=== PATIENT | male | born 1935 | race Caucasian/White ===

== ENCOUNTER → 2021-10-01 14:45 | Outpatient (BNVA) | payer OTHER, SELFPAY | PROVIDERS: Family Provider Family Medicine; Visit Provider Nurse Practitioner Family | DX: I25.10 Atherosclerotic heart disease of native coronary artery without angina pectoris (principal); I10 Essential (primary) hypertension; Z87.891 Personal history of nicotine dependence | CPT/HCPCS: 99214 ==

== ENCOUNTER → 2022-04-03 11:37 | Outpatient (BNVA) | payer OTHER, SELFPAY | PROVIDERS: Family Provider Family Medicine; PCP Family Medicine; Visit Provider Internal Medicine | DX: I25.10 Atherosclerotic heart disease of native coronary artery without angina pectoris (principal); I10 Essential (primary) hypertension; E78.49 Other hyperlipidemia; Z87.891 Personal history of nicotine dependence; Z95.1 Presence of aortocoronary bypass graft | CPT/HCPCS: 99214 ==

== ENCOUNTER → 2023-01-01 14:13 | Outpatient (BNVA) | payer OTHER, SELFPAY | PROVIDERS: Family Provider Family Medicine; PCP Family Medicine; Visit Provider Internal Medicine | DX: I10 Essential (primary) hypertension (principal); I25.10 Atherosclerotic heart disease of native coronary artery without angina pectoris; E78.49 Other hyperlipidemia; Z87.891 Personal history of nicotine dependence | CPT/HCPCS: 36415; 80048; 83880; 99214 ==

== ENCOUNTER 2023-02-05 12:30 | Outpatient (RCR) | payer OTHER, SELFPAY | END 2023-02-24 23:59 | disposition home or self-care (01) | LOC: SPT 12:30 | PROVIDERS: PCP Family Medicine; Visit Provider Family Medicine | DX: M62.81 Muscle weakness (generalized) (principal) | CPT/HCPCS: 97110; 97161 ==

== ENCOUNTER 2023-02-25 06:00 | Outpatient (RCR) | payer OTHER, SELFPAY | END 2023-03-26 23:59 | disposition home or self-care (01) | LOC: SPT 06:00 | PROVIDERS: PCP Family Medicine; Visit Provider Family Medicine | DX: M62.81 Muscle weakness (generalized) (principal) | CPT/HCPCS: 97110 ==

== ENCOUNTER → 2023-04-02 12:41 | Outpatient (BNVA) | payer OTHER, SELFPAY | PROVIDERS: PCP Family Medicine; Visit Provider Internal Medicine | DX: I25.10 Atherosclerotic heart disease of native coronary artery without angina pectoris (principal); I10 Essential (primary) hypertension; R06.02 Shortness of breath; E78.49 Other hyperlipidemia; Z87.891 Personal history of nicotine dependence | CPT/HCPCS: 36415; 80048; 85025; 99214 ==

== ENCOUNTER 2024-11-28 13:46 | Emergency (ER) | payer OTHER, SELFPAY ==
[2024-11-28 13:50] VITALS: BP 163/71; PULSE 58; RESP 16; TEMP 36.3; O2SAT 96; BMI 28.7
--- NOTE | 2024-11-28 13:50 | XR_ITS ---
WS: [id number] XR chest 1V portable [id number] REASON FOR EXAM: sob FINDINGS: No recent examination for comparison. 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 Cardiomegaly. Moderate central venous congestion. Bilateral pleural effusions and compressive atelectasis in the lower lungs. No findings of pulmonary edema identified. XR/XR chest 1V portable [id number] IMPRESSION: Cardiomegaly and bilateral pleural effusions.
--- OUTSIDE RECORDS SUMMARY | 2024-11-28 13:54 | XMS_ITS | Encounter Summary ---
Author Organization [employer] Address 5 [facility] Attn: [place] [address] Care Team Providers Care Auto Striper Name Role Phone Mauricio Ivy MD Primary Care Provider [phone] Encounter Details Date Type Department Care Team (Late st Contact Info) Description 12/23/2001 Outpatient Historical Mauricio Ivy MD [address] [place] [address] Social History Tobacco Use Types Packs/Day Years Used Date Smoking Tobacco: Never Assessed Sex and Gender Information Value Date Recorded Sex Assigned at Not on file 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
--- OUTSIDE RECORDS SUMMARY | 2024-11-28 13:54 | XMS_ITS | Encounter Summary ---
Author Organization [employer] [facility] Address [address] [place] [address] Care Team Providers Care Refrigeration Person Name Role Phone Mauricio Ivy MD Primary Care Provider [phone] Encounter Details Date Type Department Care Team (Late st Contact Info) Description 01/15/2006 Inpatient Historical [facility] IN BED Mauricio Ivy MD [address] 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 Gender Identity Not on file Sexual Orientation Not on file documented as of this encounter Plan of Treatment Not on file documented as of this encounter Procedures Procedure Name Priority Date/Time Associated Diagnosis Comments POC ACTIVATED CLOTTING TIME Routine 01/15/2006 5:52 PM CDT POC ACTIVATED CLOTTING TIME Routine 01/15/2006 4:49 PM CDT PT AND APTT Routine 01/15/2006 9:32 AM CDT CBC WITHOUT DIFFERENTIAL Routine 01/15/2006 9:32 AM CDT BASIC METABOLIC PANEL Routine 01/15/2006 9:32 AM CDT documented in this encounter Results * (ABNORMAL) POC ACTIVATED CLOTTING TIME (01/15/2006 5:52 PM CDT) ACT POC 166(H) 79 - 149 sec INTERFACE SYSTEM 01/15/2006 5:52 PM CDT Mauricio Ivy MD POINT OF CARE TESTING Final R esult Performing Organization Address City/[facility] Co de Phone Number INTERFACE SYSTEM Refer to clinic/hospital department * (ABNORMAL) POC ACTIVATED CLOTTING TIME (01/15/2006 4:49 PM CDT) [facility] ACT POC 188(H) 79 - 149 sec INTERFACE SYSTEM 01/15/2006 4:49 PM CDT Mauricio Ivy MD POINT OF CARE TESTING Final R ult Performing Organization Address [facility] de Phone Number INTERFACE SYSTEM Refer to clinic/hospital department * (ABNORMAL) CBC WITHOUT DIFFERENTIAL (01/15/2006 9:32 AM CDT) [facility] WBC 6.1 4.8 - 10.8 K/ul INTERFACE SYSTEM RBC 5.21 4.60 - 6.20 Mil/ul INTERFACE SYSTEM HEMOGLOBIN 14.9 14.0 - 18.0 g/dL INTERFACE SYSTEM HEMATOCRIT 43.1 41.0 - 53.0 % INTERFACE SYSTEM MCV 82.7(L) 84.0 - 103.0 Fl INTERFACE SYSTEM MCH 28.6 27.0 - 34.0 pg INTERFACE SYSTEM MCHC 34.6 30.0 - 35.0 g/dL INTERFACE SYSTEM RDW 13.0 11.0 - 14.5 % INTERFACE SYSTEM PLATELETS 138(L) 140 - 440 K/ul INTERFACE SYSTEM MPV 9.7 8.9 - 12.8 Fl INTERFACE SYSTEM NEUTROPHILS 49.0 42.2 - 75.2 % INTERFACE SYSTEM LYMPHOCYTES 39.1 24.0 - 44.0 % INTERFACE SYSTEM MONOCYTES 9.9 2.0 - 10.0 % INTERFACE SYSTEM EOSINOPHILS 1.7 0.0 - 7.0 % INTERFACE SYSTEM BASOPHILS 0.3 0.0 - 1.0 % INTERFACE SYSTEM NEUTROPHIL ABSOLUTE 3.0 2.0 - 8.0 K/uL INTERFACE SYSTEM LYMPHOCYTE ABSOLUTE 2.4 1.2 - 4.0 K/ul INTERFACE SYSTEM MONOCYTE ABSOLUTE 0.6 0.1 - 0.6 K/ul INTERFACE SYSTEM EOSINOPHIL ABSOLUTE 0.1 0.0 - 0.7 K/ul INTERFACE SYSTEM BASOPHILS ABSOLUTE 0.0 0.0 - 0.2 K/ul INTERFACE SYSTEM 01/15/2006 9:32 AM CDT Mauricio Ivy MD HEMATOLOGY ORDERABLES Final R esult Performing Organization Address City/[facility] de Phone Number INTERFACE SYSTEM Refer to clinic/hospital department * PT AND APTT (01/15/2006 9:32 AM CDT) PROTIME 14.3 12.6 - 14.9 Secs INTERFACE SYSTEM Comment: As of 05 note change in normal range. INR 1.1 INTERFACE SYSTEM Comment: Expected Values for INR: DVT/PE Goal INR 2.5; range 2.0 - 3.0 Valve Replacement Tissue Goal INR 2.5; range 2.0 - 3.0 Mechanical Goal INR 3.0; range 2.5 - 3.5 POST-NE Goal INR 2.5; range 2.0 - 3.0 or Goal 3.0; range 2.5 - 3.5 Atrial Fibrillation Goal INR 2.5; range 2.0 - 3.0 Ischemic Stroke Goal INR 2.5; range 2.0 - 3.0 For additional information see Guidelines for Anticoagulation available from the pharmacy Sima Bolden D. PTT 29.4 21.5 - 34.4 Secs INTERFACE SYSTEM Comment: Therapeutic Range: Hi-level PE/DVT heparin protocol 90.1 -110 sec Lo-level PE/DVT heparin protocol 75.1 - 95 sec Cardiac Heparin Protocol 85.1 - 100 sec Neuro Heparin Protocol 70.1 - 85 sec As of 05/21/05 note change in APTT Normal Range. 01/15/2006 9:32 AM CDT Mauricio Ivy MD HEMATOLOGY ORDERABLES Final R esult Performing Organization Address City/[facility]/ZIP Co de Phone Number INTERFACE SYSTEM Refer to clinic/hospital department * BASIC METABOLIC PANEL (01/15/2006 9:32 AM CDT) GLUCOSE 102 70 - 110 mg/dL INTERFACE SYSTEM BUN 17 9 - 20 mg/dL INTERFACE SYSTEM CREATININE 1.3 0.7 - 1.5 mg/dL INTERFACE SYSTEM SODIUM 139 136 - 145 mEq/L INTERFACE SYSTEM POTASSIUM 4.2 3.5 - 5.0 mEq/L INTERFACE SYSTEM CHLORIDE 106 95 - 110 mEq/L INTERFACE SYSTEM CO2 27 22 - 32 mmol/l INTERFACE SYSTEM ANION GAP 10 9 - 20 mEq/L INTERFACE SYSTEM OSMOLALITY, CALCULATED 288 275 - 295 mOsm/Kg INTERFACE SYSTEM CALCIUM 9.9 8.4 - 10.5 mg/dL INTERFACE SYSTEM 01/15/2006 9:32 AM CDT us Mauricio Ivy MD CHEMISTRY ORDERABLES Final Re sult INTERFACE SYSTEM Refer to clinic/hospital department documented in this encounter Visit Diagnoses Diagnosis Coronary atherosclerosis of [place] coronary artery- Primary documented in this encounter Care Teams Refrigeration Person Relationship Specialty Start Date End Date Mauricio Ivy MD [address] [facility] [address] [place] [phone] PCP - General 01/15/06 documented as of this encounter
--- OUTSIDE RECORDS SUMMARY | 2024-11-28 13:54 | XMS_ITS | Encounter Summary ---
Author Organization [facility] Address [address] [place] [address] Care Team Providers Care Shipping Assistant Name Role Phone Mauricio Ivy MD Primary Care Provider [phone] Encounter Details Date Type Department Care Team (Latest Contact Info) Description 01/28/2007 Outpatient Historical [facility] Cardiology Ancillary Services[facility] [address] [place] [address] Eduar Santoro MD [address] [place] [address] Coronary Atherosclerosis of [place] Coronary Artery (Primary Dx); Unspecified Chest Pain Social History Tobacco Use Types Packs/Day Years Used Date Smoking Tobacco: Never Assessed Sex and Gender Information Value Date Recorded Sex Assigned at Not on file 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
--- OUTSIDE RECORDS SUMMARY | 2024-11-28 13:54 | XMS_ITS | Encounter Summary ---
Author Organization [facility] Address [address] [place] [address] Care Team Providers Care Diagnostic Tech Name Role Phone Mauricio Ivy MD Primary Care Provider [phone] Encounter Details Date Type Department Care Team (Latest Contact Info) Description 02/16/2006 Outpatient Historical [facility] Cardiology- [place] [address] [place] [address] Vane Sun, FINANCIAL ADMINISTRATION OFFICER [address] [place] [address] Coronary Atherosclerosis of [place] Coronary Artery (Primary Dx); Unspecified Essential Hypertension; Other and Unspecified Hyperlipidemia Social History Tobacco Use Types Packs/Day Years Used Date Smoking Tobacco: Never Assessed Sex and Gender Information Value Date Recorded Sex Assigned at Not on file 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
--- OUTSIDE RECORDS SUMMARY | 2024-11-28 13:54 | XMS_ITS | Encounter Summary ---
Author Organization [facility] Address [address] [place] [address] Care Team Providers Care Repairer Shoe Sticks Name Role Phone Mauricio Ivy MD Primary Care Provider [phone] Encounter Details Date Type Department Care Team (Latest Contact Info) Description 01/15/2000 Outpatient Historical [facility] Cardiology- [place] [address] [place] [address] Mauricio Ivy MD [address] [place] [address] Other and unspecified angina pectoris (Primary Dx); Coronary atherosclerosis of [place] coronary artery Social History Tobacco Use Types Packs/Day Years Used Date Smoking Tobacco: Never Assessed Sex and Gender Information Value Date Recorded Sex Assigned at Not on file 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
--- OUTSIDE RECORDS SUMMARY | 2024-11-28 13:54 | XMS_ITS | Encounter Summary ---
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
--- OUTSIDE RECORDS SUMMARY | 2024-11-28 13:54 | XMS_ITS | Encounter Summary ---
Author Organization [facility] Address [address] [place] [address] Care Team Providers Care Finisher Accordion Name Role Phone Mauricio Ivy MD Primary Care Provider [phone] Encounter Details Date Type Department Care Team (Latest Contact Info) Description 02/16/2006 Outpatient Historical [facility] Cardiology Ancillary Services-[place] [address] [place] [address] Deep Nye MD NO ADDRESS ON FILE Coronary Atherosclerosis of [place] Coronary Artery (Primary Dx); Unspecified Chest Pain Social History Tobacco Use Types Packs/Day Years Used Date Smoking Tobacco: Never Assessed Sex and Gender Information Value Date Recorded Sex Assigned at Not on file 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
--- OUTSIDE RECORDS SUMMARY | 2024-11-28 13:54 | XMS_ITS | Clinical Summary ---
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
--- OUTSIDE RECORDS SUMMARY | 2024-11-28 13:54 | XMS_ITS | Encounter Summary ---
Author Organization [facility] Address [address] [place] [address] Care Team Providers Care Medical Transcription Radiology Name Role Phone Mauricio Ivy MD Primary Care Provider [phone] Encounter Details Date Type Department Care Team (Latest Contact Info) Description 12/07/2006 Outpatient Historical [facility] Cardiology- [place] [address] [place] [address] Vane Sun, MANAGER PATHOLOGY [address] [place] [address] Coronary Atherosclerosis of [place] Coronary Artery (Primary Dx); Unspecified Essential Hypertension; Unspecified Chest Pain; Other and Unspecified Hyperlipidemia Social History Tobacco Use Types Packs/Day Years Used Date Smoking Tobacco: Never Assessed Sex and Gender Information Value Date Recorded Sex Assigned at Not on file 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
--- NOTE | 2024-11-28 13:57 | ECG_ITS ---
[facility] 2024-[facility]28 Pat Name: Nate Riddle Department: Room: Gender: Male [employer] System Admin: : 1935 Requested By: Derrell Rios Order Number: [id number] Reading MD: MALENA DEUTSCH Measurements Intervals [place] Rate: 57 P: 0 MA: 0 QRS: 250 QRSD: 156 T: 68 QT: 461 QTc: 452 Interpretive Statements ATRIAL FIBRILLATION RIGHT AXIS DEVIATION [QRS AXIS > 100] RIGHT BUNDLE BRANCH BLOCK [120+ ms QRS DURATION, UPRIGHT V1, 40+ ms S IN I/aVL/V4/V5/V6] POSSIBLE ANTERIOR MYOCARDIAL INFARCTION , PROBABLY OLD [30 ms Q WAVE IN V3/V4, OR R < 0.2 mV IN V4] No previous ECG available for comparison Electronically Signed On 11-28-2024 14:02:00 CDT by MALENA DEUTSCH [email or web address]
[2024-11-28 14:22] LABS: Hematocrit 38.3 % (37-53); Hemoglobin 12.50 g/dL (11.27-16.99); Mean Corpuscular HGB Conc 32.6 g/dL (30-55); Mean Corpuscular Hemoglobin 27.8 pg (27-33); Mean Corpuscular Volume 85.3 fl (82-101); Nucleated Red Blood Cells % 0 %; Platelet Count 144 10^3/cmm (157-399); Red Blood Count 4.49 10^6/uL (3.85-5.65); White Blood Count 5.80 10^3/uL (3.29-11.43)
[2024-11-28 14:23] VITALS: BP 153/71; PULSE 58; RESP 16; O2SAT 94
[2024-11-28 14:36] VITALS: PULSE 57; RESP 16; O2SAT 93
--- NOTE | 2024-11-28 14:40 | W.ED.EXTPRO ---
HPI - Extremity Problem General: Chief complaint: Extremity Problem,Nontraumatic Stated complaint: sob,fluid build up sent from [place] Time Seen by Provider: 11/28/24 14:07 History of Present Illness: 89-year-old male presents emergency room complaining of increasing shortness of breath swelling in his legs. He recently had his Lasix increased from 20 mg daily to 40 mg daily despite this is not noticed any increased urine output or decrease in the swelling in his legs. He denies any fever sweats or chills. No dysuria urgency or frequency no vomiting or diarrhea Associated symptoms: Deny chest pain, fever(s) or rash Related Data Home Medications ?Medication ?Instructions ?Recorded ?Confirmed isosorbide dinitrate 20 mg tablet 20 mg PO BID 06/23/19 11/28/24 cholecalciferol (vitamin D3) 25 5,000 unit PO DAILY 03/20/20 11/28/24 mcg (1,000 unit) capsule amlodipine 5 mg tablet 5 mg PO DAILY 04/02/23 11/28/24 furosemide 40 mg tablet (Lasix) 40 mg PO QAM 11/28/24 11/28/24 levothyroxine 75 mcg tablet 75 mcg PO DAILY 11/28/24 11/28/24 rosuvastatin 40 mg tablet 20 mg PO DAILY 11/28/24 11/28/24 Previous Rx's ?Medication ?Instructions ?Recorded atenolol 100 mg tablet 100 mg PO DAILY #90 tabs 01/25/21 potassium chloride 20 mEq 20 meq PO BID #60 tabs 01/02/23 tablet,extended release Allergies Allergy/AdvReac Type Severity Reaction Status Date / Time No Known Allergies Allergy Verified 11/28/24 13:58 Review of Systems Const: Denies: fever(s) or chills Card: Reports: edema, swelling of feet/ankles, dyspnea on exertion and orthopnea; Denies: chest pain Resp: Denies: dyspnea GI: Denies: abdominal pain : Denies: dysuria, urinary frequency or urinary urgency Musc: Denies: neck pain or back pain Skin/Breast: Denies: rash PFSH ED PFSH: Medical History Balance disorder Hyperlipidemia HTN (hypertension) ASHD (arteriosclerotic heart disease) Surgical History 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 Family History Father Congestive heart failure (CHF) Hypertension Mother CAD (coronary artery disease) Hypertension Social History Smoking and tobacco/nicotine status: former use of tobacco/nicotine Physical Exam Const: GENERAL APPEARANCE: cooperative ORIENTATION/CONSCIOUSNESS: Yes awake, Yes oriented to person, Yes oriented to place and Yes oriented to time HENMT: COMMON NORMALS: normocephalic, atraumatic and hearing grossly normal bilaterally HEAD & SCALP: normocephalic and atraumatic Resp: COMMON NORMALS: normal respiratory effort, No retractions, No use of accessory muscles and clear to auscultation bilaterally AUSCULTATION: clear to auscultation bilaterally Cardio: COMMON NORMALS: regular rate, regular rhythm and No murmurs present (Cardio) RATE: regular rate RHYTHM: regular rhythm GI: COMMON NORMALS: Soft to palpation and No hepatosplenomegaly present AUSCULTATION: Yes normoactive bowel sounds PALPATION: Yes Soft to palpation, No Tenderness to palpation present (GI), No Guarding due to palpation present (GI) and Yes No hepatosplenomegaly present Extremity: COMMON NORMALS: normal to inspection, capillary refill normal and no calf tenderness GENERAL: Yes edema Neuro: SENSORIUM/ORIENTATION: Yes oriented to person, Yes oriented to place and Yes oriented to time Skin: COMMON NORMALS: no rashes or lesions noted GENERAL SKIN EXAM: no rashes or lesions noted Course Vital Signs: Vital signs: Vital Signs Temperature 97.4 F L 11/28/24 13:50 Pulse Rate 59 L 11/28/24 16:54 Respiratory Rate 14 11/28/24 16:33 Blood Pressure 149/56 11/28/24 16:54 Pulse Oximetry 94 11/28/24 16:54 Oxygen Delivery Me thod Room Air 11/28/24 16:33 MDM - Extremity (Nontraumatic) Medical Decision Making Patient has a fairly good sized right pleural effusion ultrasound discussed with radiology they were able to get a liter off of my submitted for pathology. Patient is adamant about going home in fact it took a little convincing even get him to stay and undergo the thoracentesis. Will set him up for follow-up with pulmonology clinic pleural fluid submitted for analysis continue his current dose of Lasix Medical Records I reviewed the patient's medical records. Lab Data I reviewed the patient's lab results. 11/28/24 14:18 11/28/24 14:18 Radiology Impressions Thoracentesis Ultrasound 11/28/24 15:47 IMPRESSION: Uncomplicated ultrasound-guided RIGHT thoracentesis with removal of 1000 cc clear yellow pleural fluid. Chest X-Ray 11/28/24 16:34 IMPRESSION: 1. Improved RIGHT pleural effusion postthoracentesis. 2. No pneumothorax. Laboratory Results WBC 5.80 10^3/uL (3.29-11.43) 11/28/24 14:18 RBC 4.49 10^6/uL (3.85-5.65) 11/28/24 14:18 Hgb 12.50 g/dL (11.27-16.99) 11/28/24 14:18 Hct 38.3 % (37-53) 11/28/24 14:18 MCV 85.3 fl (82-101) 11/28/24 14:18 MCH 27.8 pg (27-33) 11/28/24 14:18 MCHC 32.6 g/dL (30-55) 11/28/24 14:18 RDW 15.1 % (12.1-15.1) 11/28/24 14:18 Plt Count 144 10^3/cmm (157-399) L 11/28/24 14:18 MPV 9.6 fL (7.4-10.4) 11/28/24 14:18 Neut % (Auto) 66.4 % 11/28/24 14:18 Lymph % (Auto) 21.6 % 11/28/24 14:18 [place] % (Auto) 10.3 % 11/28/24 14:18 Eos % (Auto) 1.2 % 11/28/24 14:18 Baso % (Auto) 0.3 % 11/28/24 14:18 Neut # (Auto) 3.85 10^3/uL (1.8-7.7) 11/28/24 14:18 Lymph # (Auto) 1.3 10^3/uL (0.8-4.8) 11/28/24 14:18 [place] # (Auto) 0.6 10^3/uL (0.2-0.9) 11/28/24 14:18 Eos # (Auto) 0.1 10^3/uL (0.0-0.8) 11/28/24 14:18 Baso # (Auto) 0.0 10^3/uL (0.0-0.1) 11/28/24 14:18 Nucleated RBC % (auto) 0 % 11/28/24 14:18 Nucleated RBCs # 0.0 /100WBC 11/28/24 14:18 Sodium 134 mmol/L (136-145) L 11/28/24 14:18 Potassium 3.9 mmol/L (3.5-5.1) 11/28/24 14:18 Chloride 94 mmol/L (98-107) L 11/28/24 14:18 Carbon Dioxide 26 mmol/L (22-29) 11/28/24 14:18 Anion Gap 17.9 (5-19) 11/28/24 14:18 BUN 15 mg/dL (8-23) 11/28/24 14:18 Creatinine 1.1 mg/dL (0.7-1.2) 11/28/24 14:18 GFR Calculation Not Reportable 11/28/24 14:18 Glucose 103 mg/dL (65-115) 11/28/24 14:18 Calculated Osmolality 279 mOsm/kg (285-295) L 11/28/24 14:18 Calcium 9.4 mg/dL (8.5-10.5) 11/28/24 14:18 Total Bilirubin 1.2 mg/dL (0.15-1.2) 11/28/24 14:18 AST 26 U/L (0-40) 11/28/24 14:18 ALT 16 U/L (0-41) 11/28/24 14:18 Alkaline Phosphatase 87 U/L (40-130) 11/28/24 14:18 NT-Pro-B Natriuret Pep 8631 pg/mL (0-450) H 11/28/24 14:18 Total Protein 7.4 g/dL (6.6-8.7) 11/28/24 14:18 Albumin 4.5 g/dL (3.5-5.2) 11/28/24 14:18 Globulin 2.9 g/dL (1.3-4.6) 11/28/24 14:18 Fld Crystal Laterality Not Reportable 11/28/24 16:36 Pleural Color Pale yellow (Pale Yellow) 11/28/24 16:36 Pleural Appearance Clear (CLEAR) 11/28/24 16:36 Pleural WBC 144.000 /uL (0-1000) 11/28/24 16:36 Pleural RBC 1.000 10^3/uL 11/28/24 16:36 Pleural Mononuc # Auto 0.129 10^3/uL 11/28/24 16:36 Pleural Polynuclear % 10 % 11/28/24 16:36 Pleural Polynuclear # 0.015 10^3/uL 11/28/24 16:36 Pleural Mononuclear % 90 % 11/28/24 16:36 Pleural Other Cells Rt Right lower 11/28/24 16:36 All radiology interpretation(s) finalized by discharge Discharge Plan Discharge Patient Disposition: Home Clinical Impression: Pleural effusion, CHF (congestive heart failure) Condition: Stable Prescriptions: No Action isosorbide dinitrate 20 mg tablet 20 mg PO BID cholecalciferol (vitamin D3) 25 mcg (1,000 unit) capsule 5,000 unit PO DAILY amlodipine 5 mg tablet 5 mg PO DAILY atenolol 100 mg tablet 100 mg PO DAILY Qty: 90 0RF potassium chloride 20 mEq tablet extended release 20 meq PO BID Qty: 60 0RF furosemide [Lasix] 40 mg Tablet 40 mg PO QAM levothyroxine 75 mcg Tablet 75 mcg PO DAILY rosuvastatin 40 mg tablet 20 mg PO DAILY Discharge Orders: Discharge ED (Routine); Ordered 11/28/24 Ordered By: Amaury Hill Referrals: Serenity Gamez MD [Primary Care Provider, Family Practice] Discharge Diet: Usual diet Discharge Activity: Resume usual activity Patient Instructions: Opioid Safety, Pain Management, Patient Portal & Irma Instructions Activity Restrictions/Additional Instructions: [facility]. It is very important that you follow up as instructed or that you return to the Emergency Department should you have concerns or if your condition changes or worsens in any way. You are seen in the emergency room with complaint of increasing swelling. Your chest x-ray showed a fluid collection this was drained in the emergency room and submitted for pathology. At your request we are discharging you home and will set you up for follow-up with the registered travel nurse. Continue to take the Lasix 40 mg daily Print Language: Vietnamese Coding Level of Care Code ED User Interface Artist for Burt Amezquita
[2024-11-28 14:49] LABS: Alanine Aminotransferase 16 U/L (0-41); Albumin Level 4.5 g/dL (3.5-5.2); Alkaline Phosphatase 87 U/L (40-130); Anion Gap 17.9 (5-19); Aspartate Amino Transferase 26 U/L (0-40); Blood Urea Nitrogen 15 mg/dL (8-23); Calcium 9.4 mg/dL (8.5-10.5); Carbon Dioxide 26 mmol/L (22-29); Chloride 94 mmol/L (98-107); Creatinine Clr Calc Pharmacy 55.2458; Globulin 2.9 g/dL (1.3-4.6); Glucose 103 mg/dL (65-115); NT Pro B Type Natriuretic Pept 8631 pg/mL (0-450); Osmolality Calculated 279 mOsm/kg (285-295); Potassium 3.9 mmol/L (3.5-5.1); Sodium 134 mmol/L (136-145); Total Protein 7.4 g/dL (6.6-8.7)
--- NOTE | 2024-11-28 15:47 | US_ITS ---
WS: [id number] ULTRASOUND-GUIDED THORACENTESIS CLINICAL INFORMATION: pleural effusion PROCEDURE: Informed consent: The risks, benefits, and alternatives of the procedure were discussed with the patient. Verbal and written consent was obtained. Timeout: A timeout was performed to confirm the correct patient, procedure, and site. Site: RIGHT chest Preparation: A suitable skin site was identified. The patient was prepped and draped in usual sterile fashion. Lidocaine 1% was used for local anesthesia. Catheter: 4 [place] One-Step catheter. Fluid Volume: 1000 ml Color: Clear yellow Complications: None. / thoracentesis [id number] IMPRESSION: Uncomplicated ultrasound-guided RIGHT thoracentesis with removal of 1000 cc ana ar yellow pleural fluid.
--- NOTE | 2024-11-28 15:55 | PC.PHAR ---
Addendum entered by Janki Rios 11/28/24 16:04: Verified all current medications with Sherrell Deluca. Original Note: [facility] is [facility] pharmacy for current med list.
[2024-11-28 16:33] VITALS: BP 149/56; PULSE 61; RESP 14; O2SAT 97
--- NOTE | 2024-11-28 16:34 | XR_ITS ---
WS: [id number] CHEST XRAY TECHNIQUE: Portable chest. CLINICAL INFORMATION: POST THORACENTESIS COMPARISON: 11/28/2024 2:34 p.m. FINDINGS: Heart: Cardiomegaly. Sternotomy. CABG. Lungs: Post RIGHT thoracentesis. No pneumothorax. Significant improvement in the RIGHT pleural effusion with a small amount of residual pleural fluid or thickening. Small LEFT pleural effusion. Bones: Osteopenia. XR/XR chest 1V portable [id number] IMPRESSION: 1. Improved RIGHT pleural effusion postthoracentesis. 2. No pneumothorax.
--- NOTE | 2024-11-28 16:34 | PC.NURSE ---
1 L PULLED DURING THORACENTESIS.
[2024-11-28 16:54] VITALS: BP 149/56; PULSE 59; O2SAT 94
--- NOTE | 2024-11-28 17:03 | DCPLANNER ---
messaged pulmonology for er f/u
[2024-11-28 17:11] LABS: Cyto Order Verification No Order
[2024-11-28 17:19] LABS: Mononuclear %, Pleural Fluid 90 %; Mononuclear, Pleural Fluid # 0.129 10^3/uL; Polynuclear Cells, Pleural # 0.015 10^3/uL; Polynuclear Cells, Pleural % 10 %; WBC Pleural Fluid 144.000 /uL (0-1000)
[2024-11-28 17:20] LABS: Appearance, Pleural Fluid CLEAR (CLEAR); Color, Pleural Fluid Pale Yellow (Pale Yellow); Right Pleural Fluid RIGHT LOWER
--- NOTE | 2024-11-29 08:43 | PC.SOCIAL ---
[facility] Pulmonology Records sent [place] for authorization for pulmonology appt.
== END 2024-11-28 16:55 | disposition home or self-care (01) ==
PROVIDERS: Emergency Medicine; Emergency Provider Family Medicine; PCP Family Medicine
DX: J90 Pleural effusion, not elsewhere classified (principal); I11.0 Hypertensive heart disease with heart failure; I50.9 Heart failure, unspecified; E78.5 Hyperlipidemia, unspecified; Z87.891 Personal history of nicotine dependence
CPT/HCPCS: 32555; 36415; 71045; 80053; 80503; 83880; 85025; 89050; 93005; 99285

== ENCOUNTER → 2024-12-07 09:21 | Outpatient (BNVA) | payer OTHER, SELFPAY | PROVIDERS: PCP Family Medicine; Visit Provider Internal Medicine | DX: R60.0 Localized edema (principal); J90 Pleural effusion, not elsewhere classified; E87.1 Hypo-osmolality and hyponatremia; E87.70 Fluid overload, unspecified; Z87.891 Personal history of nicotine dependence | CPT/HCPCS: 99205 ==

== ENCOUNTER 2024-12-07 10:19 | Inpatient (IN) | payer OTHER, MEDICARE, SELFPAY ==
[2024-12-07] VITALS (21 sets, daily range): BP systolic 113–161; BP diastolic 58–80; PULSE 53–82; RESP 15–30; TEMP 36.1–36.6; O2SAT 88–98; BMI 28.8
--- NOTE | 2024-12-07 10:20 | XR_ITS ---
WS: [id number] Portable AP upright chest, 12/07/2024 Clinical Data: sob Comparison: Portable chest, 11/28/2024 Findings: There are small bilateral pleural effusions unchanged. The heart is enlarged. No nodules or masses are seen. There is no pneumothorax. The aortic arch shows calcification. There are mediastinal clips and midline sternotomy sutures. There is an anterior cervical disc fusion. XR/XR chest 1V portable [id number] Impression: 1. Small bilateral pleural effusions unchanged. 2. Atherosclerosis and cardiomegaly.
[2024-12-07 10:44] LABS: Hematocrit 37.9 % (37-53); Hemoglobin 12.10 g/dL (11.27-16.99); Mean Corpuscular HGB Conc 31.9 g/dL (30-55); Mean Corpuscular Hemoglobin 27.4 pg (27-33); Mean Corpuscular Volume 85.9 fl (82-101); Nucleated Red Blood Cells % 0 %; Platelet Count 154 10^3/cmm (157-399); Red Blood Count 4.41 10^6/uL (3.85-5.65); White Blood Count 5.96 10^3/uL (3.29-11.43)
--- NOTE | 2024-12-07 10:50 | ECG_ITS ---
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 Measurements Intervals [place] Rate: 53 P: 0 [place]: 0 QRS: 266 QRSD: 153 T: 61 QT: 485 QTc: 458 Interpretive Statements ATRIAL FIBRILLATION WITH SLOW VENTRICULAR RESPONSE RIGHT AXIS DEVIATION [QRS AXIS > 100] RIGHT BUNDLE BRANCH BLOCK [120+ ms QRS DURATION, UPRIGHT V1, 40+ ms S IN I/aVL/V4/V5/V6] ANTERIOR MYOCARDIAL INFARCTION , OF INDETERMINATE AGE [40+ ms Q WAVE AND/OR ST/T ABNORMALITY IN V3/V4] Compared to ECG 11/28/2024 13:57:09 No significant changes Electronically Signed On 12-17-2024 09:36:33 CDT by Jose Sharpe M.D. [email or web address]
[2024-12-07 11:08] LABS: Troponin(5th) Baseline 120 ng/L (0-15)
[2024-12-07 11:20] LABS: Alanine Aminotransferase 13 U/L (0-41); Albumin Level 4.3 g/dL (3.5-5.2); Alkaline Phosphatase 80 U/L (40-130); Aspartate Amino Transferase 25 U/L (0-40); Blood Urea Nitrogen 18 mg/dL (8-23); Calcium 9.2 mg/dL (8.5-10.5); Carbon Dioxide 24 mmol/L (22-29); Chloride 96 mmol/L (98-107); Creatinine Clr Calc Pharmacy 51.1985; Globulin 2.4 g/dL (1.3-4.6); Glucose 93 mg/dL (65-115); NT Pro B Type Natriuretic Pept 10007 pg/mL (0-450); Osmolality Calculated 280 mOsm/kg (285-295); Sodium 134 mmol/L (136-145); Total Protein 6.7 g/dL (6.6-8.7)
[2024-12-07 11:24] LABS: Anion Gap 17.8 (5-19); Potassium 3.8 mmol/L (3.5-5.1)
--- NOTE | 2024-12-07 11:57 | W.ED.SOB ---
HPI - SOB/Dyspnea General: Chief Complaint: Shortness of Breath/Dyspnea Stated Complaint: dr keron, fluid on lungs Time Seen by Provider: 12/07/24 11:21 History of Present Illness: HPI Narrative: Chief complaint shortness of breath. The patient states that when he lays down he cannot breathe. He has had swelling in his legs and he states now is extending up into his scrotum and perineum and lower abdomen. No chest pain Related Data Home Medications ?Medication ?Instructions ?Recorded ?Confirmed isosorbide dinitrate 20 mg tablet 20 mg PO BID 06/23/19 12/07/24 amlodipine 5 mg tablet 5 mg PO DAILY 04/02/23 12/07/24 furosemide 40 mg tablet (Lasix) 40 mg PO QAM 11/28/24 12/07/24 levothyroxine 75 mcg tablet 75 mcg PO DAILY 11/28/24 12/07/24 rosuvastatin 40 mg tablet 20 mg PO DAILY 11/28/24 12/07/24 Previous Rx's ?Medication ?Instructions ?Recorded atenolol 100 mg tablet 100 mg PO DAILY #90 tabs 01/25/21 potassium chloride 20 mEq 20 meq PO BID #60 tabs 01/02/23 tablet,extended release Allergies Allergy/AdvReac Type Severity Reaction Status Date / Time No Known Allergies Allergy Verified 12/07/24 10:55 [facility] ED PFSH: Medical History (Updated 12/07/24 @ 11:57 by Vicente Hernandez MD) Balance disorder Hyperlipidemia HTN (hypertension) ASHD (arteriosclerotic heart disease) Surgical History 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 Quit in 1989) Physical Exam Narrative: EXAM NARRATIVE: Patient is alert and oriented. He becomes tachypneic with just mild activity of unbuckling his pants or any movement in the bed. He has diminished breath sounds bilaterally with crackles in the bases. He has significant pitting edema over his legs that is 4+ extending up into the scrotum and penis and perineal area. No abdominal tenderness guarding or rebound. Heart has a murmur and is irregularly irregular. Neck is supple. He has moist mucous membranes. No drift in his arms. He moves his arms and legs freely. He sits up and moves his back freely. No tenderness over his back. Neck is supple. No rash in exposed areas on the skin which is warm. Speech is clear. He shows ability to reason. Course Vital Signs: Vital signs: Vital Signs Temperature 97.5 F L 12/07/24 10:45 Pulse Rate 58 L 12/07/24 11:45 Respiratory Rate 15 12/07/24 11:45 Blood Pressure 140/74 12/07/24 10:45 Pulse Oximetry 93 12/07/24 11:45 Oxygen Delivery Me thod Room Air 12/07/24 10:45 MDM - SOB/Dyspnea Medical Decision Making Patient presents with complaint of shortness of breath and leg edema. Patient saw his safety scientist today and was told to come to emergency room for admission. Patient denies history of PE or DVT. He states he is not on a blood thinner that he is aware of. He states he takes 40 mg water pill twice a day and has not missed any doses. Denies any fever. No new cough. No leg pain but he states both of legs have been swollen for several months but has been getting worse. Patient states they took some fluid off his heart 4 days ago which sounds like a thoracentesis and he states his breathing has been better since then but he still cannot lay down without getting out of breath and he cannot sleep because of trouble breathing if he tries to lay down. No chest pain or chest discomfort or upper back or arm or jaw discomfort. No black or bloody stools. No fever. No headache. No abdominal pain. No vomiting or diarrhea. Patient EKG shows to my interpretation atrial fibrillation with right bundle branch block and nonspecific ST segment changes. On comparison patient did have a single prior EKG in the system which was interpreted as A-fib at that time. I do not see record of A-fib otherwise and patient denies being anticoagulated. Patient denies chest pain however troponin is elevated. CBC, CMP, troponin, proBNP, EKG and chest x-ray were ordered. Chest x-ray shows pleural effusions. White count is normal. Creatinine is 1.2. proBNP is elevated. I ordered aspirin for the patient 324 mg p.o. and 40 mg of Lasix IV. I have paged hospitalist to consult for admission for further diuresis and further evaluation. I consulted with Dr. Wakefield who recommends heparin with his history of coronary artery disease and elevated troponin and A-fib and will admit and continue patient care. Lab Data 12/07/24 10:34 12/07/24 10:34 Labs/Radiology: Radiology Impressions Chest X-Ray 12/07/24 10:20 Impression: 1. Small bilateral pleural effusions unchanged. 2. Atherosclerosis and cardiomegaly. Laboratory Results WBC 5.96 10^3/uL (3.29-11.43) 12/07/24 10:34 RBC 4.41 10^6/uL (3.85-5.65) 12/07/24 10:34 Hgb 12.10 g/dL (11.27-16.99) 12/07/24 10:34 Hct 37.9 % (37-53) 12/07/24 10:34 MCV 85.9 fl (82-101) 12/07/24 10:34 MCH 27.4 pg (27-33) 12/07/24 10:34 MCHC 31.9 g/dL (30-55) 12/07/24 10:34 RDW 15.5 % (12.1-15.1) H 12/07/24 10:34 Plt Count 154 10^3/cmm (157-399) L 12/07/24 10:34 MPV 9.7 fL (7.4-10.4) 12/07/24 10:34 Neut % (Auto) 67.0 % 12/07/24 10:34 Lymph % (Auto) 20.3 % 12/07/24 10:34 [place] % (Auto) 9.9 % 12/07/24 10:34 Eos % (Auto) 1.8 % 12/07/24 10:34 Baso % (Auto) 0.5 % 12/07/24 10:34 Neut # (Auto) 3.99 10^3/uL (1.8-7.7) 12/07/24 10:34 Lymph # (Auto) 1.2 10^3/uL (0.8-4.8) 12/07/24 10:34 [place] # (Auto) 0.6 10^3/uL (0.2-0.9) 12/07/24 10:34 Eos # (Auto) 0.1 10^3/uL (0.0-0.8) 12/07/24 10:34 Baso # (Auto) 0.0 10^3/uL (0.0-0.1) 12/07/24 10:34 Nucleated RBC % (auto) 0 % 12/07/24 10:34 Nucleated RBCs # 0.0 /100WBC 12/07/24 10:34 Sodium 134 mmol/L (136-145) L 12/07/24 10:34 Potassium 3.8 mmol/L (3.5-5.1) 12/07/24 10:34 Chloride 96 mmol/L (98-107) L 12/07/24 10:34 Carbon Dioxide 24 mmol/L (22-29) 12/07/24 10:34 Anion Gap 17.8 (5-19) 12/07/24 10:34 BUN 18 mg/dL (8-23) 12/07/24 10:34 Creatinine 1.2 mg/dL (0.7-1.2) 12/07/24 10:34 GFR Calculation Not Reportable 12/07/24 10:34 Glucose 93 mg/dL (65-115) 12/07/24 10:34 Calculated Osmolality 280 mOsm/kg (285-295) L 12/07/24 10:34 Calcium 9.2 mg/dL (8.5-10.5) 12/07/24 10:34 Total Bilirubin 1.5 mg/dL (0.15-1.2) H 12/07/24 10:34 AST 25 U/L (0-40) 12/07/24 10:34 ALT 13 U/L (0-41) 12/07/24 10:34 Alkaline Phosphatase 80 U/L (40-130) 12/07/24 10:34 Troponin T Baseline 120 ng/L (0-15) H* 12/07/24 10:34 NT-Pro-B Natriuret Pep 03139 pg/mL (0-450) H 12/07/24 10:34 Total Protein 6.7 g/dL (6.6-8.7) 12/07/24 10:34 Albumin 4.3 g/dL (3.5-5.2) 12/07/24 10:34 Globulin 2.4 g/dL (1.3-4.6) 12/07/24 10:34 All radiology interpretation(s) finalized by discharge Discharge Plan Discharge Patient Disposition: Admitted As Inpatient Clinical Impression: Atrial fibrillation, Acute exacerbation of CHF (congestive heart failure), Pleural effusion, Elevated troponin Condition: Stable Coding Level of Care Code ED Roller Setter for Burt Amezquita
--- NOTE | 2024-12-07 12:20 | ECG_ITS ---
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 Measurements Intervals [place] Rate: 59 P: 0 [place]: 0 QRS: 258 QRSD: 162 T: 63 QT: 498 QTc: 496 Interpretive Statements UNCERTAIN REGULAR RHYTHM RIGHT AXIS DEVIATION [QRS AXIS > 100] RIGHT BUNDLE BRANCH BLOCK [120+ ms QRS DURATION, UPRIGHT V1, 40+ ms S IN I/aVL/V4/V5/V6] POSSIBLE ANTERIOR MYOCARDIAL INFARCTION , OF INDETERMINATE AGE [30 ms Q WAVE IN V3/V4, OR R < 0.2 mV IN V4] Compared to ECG 12/07/2024 10:50:24 Atrial fibrillation no longer present Myocardial infarct finding still present Electronically Signed On 12-17-2024 13:10:21 CDT by Ronald Pedroza M.D. [email or web address]
[2024-12-07] MEDS: FUROsemide 10 mg/mL SDV 4mL 40 MG IVP ×2 (12:37→16:39)
--- NOTE | 2024-12-07 12:38 | USCV_ITS ---
Nate Riddle Age: 89 Gender: M : 1935 Exam Date: 12/07/2024 13:30 Ordering Phys: Juan Bo MD Technologist: Exam Location: [facility] [place] Indication: cp sob murmur BP: 110 / 60 HR: 58 Rhythm: Sinus Technical Quality: Adequate MEASUREMENTS (Male / Female) Normal Values 2D ECHO LV Diastolic Diameter PLAX 4.5 cm 4.2 - 5.9 / 3.9 - 5.3 cm IVS Diastolic Thickness 1.7 cm 0.6 - 1.0 / 0.6 - 0.9 cm IVS Systolic Thickness 2.2 cm LVPW Diastolic Thickness 1.6 cm 0.6 - 1.0 / 0.6 - 0.9 cm LVPW Systolic Thickness 1.8 cm LVOT Diameter 2.1 cm LV Ejection Fraction 2D Teich 43.4 % LV Ejection Fraction MOD 4C 46.7 % LV Ejection Fraction MOD 2C 31.8 % LV Ejection Fraction 2C AL 29.3 % LA Diameter 4.2 cm RA Systolic Volume 4C AL 50.8 ml RA Systolic Volume 4C MOD 49.3 ml Aorta at Sinotubular Diameter 3.1 cm IVC Diameter 2.3 cm M-MODE LA Ao Ratio MM 1.1 AV Cusp Separation MM 1.5 cm DOPPLER AV Peak Velocity 161.0 cm/s LVOT Peak Velocity 64.0 cm/s AV Area Cont Eq vti 1.6 cm squared AV Area Cont Eq pk 1.3 cm squared MV Peak Velocity 172.7 cm/s MV Area PHT 4.5 cm squared Mitral E to A Ratio 2.0 TV Peak Velocity 194.0 cm/s TR Peak Velocity 216.0 cm/s TR Peak Gradient 18.7 mmHg TV Peak E Velocity 82.0 cm/s PV Peak Velocity 95.0 cm/s FINDINGS Left Ventricle Left ventricle is normal in size. LV systolic function is mildly reduced with EF of 45-50%. Mild global hypokinesis. Moderate left ventricular hypertrophy. Right Ventricle Not well visualized Right Atrium Normal in size Left Atrium Dilated Mitral Valve Moderate mitral annular calcification. Mild mitral regurgitation. Aortic Valve Aortic valve is thickened. No significant stenosis or regurgitation. Tricuspid Valve Insufficient TR jet to evaluate RVSP. Pulmonic Valve Mild pulmonic regurgitation. Pericardium Normal Aorta Normal in size IVC Appears to be dilated CONCLUSIONS LV systolic function is mildly reduced with EF of 45-50% Moderate left ventricular hypertrophy Left atrial dilation Mild mitral regurgitation Mild pulmonic regurgitation. IVC appears to be dilated. Jose Sharpe MD (Electronically Signed) Final Date: 07 December 2024 17:09 S
[2024-12-07] MEDS: heparin drip 25,000 UNIT/500 ML PREMIX 27 UNIT IV (12:46)
[2024-12-07] MEDS: heparin 5,000 unit/mL INJ 1 mL IVP (12:51)
[2024-12-07 12:59] LABS: Troponin 5 2HR 117.3 ng/L (0-15); Troponin 5 2HR Delta -2.7 ABS# (0-10)
[2024-12-07 13:08] LABS: INR 1.10 (0.8-1.2); Partial Thromboplastin Time 29.4 SECONDS (23.9-36.7); Prothrombin Time 14.90 SECONDS (12.1-14.9)
--- NOTE | 2024-12-07 14:11 | PM.HP ---
Providers/Chief Complaint Primary Care Provider: Serenity Gamez MD Chief Complaint: dr cabrales, fluid on lungs History of Present Illness Nate Riddle is a 89 year old male with a past medical history of atrial fibrillation not on anticoagulant therapy?, Hypertension, CHF, CAD, history of CABG, recent thoracentesis 1 L removed, cytology benign, who presents [facility] from pulmonary clinic for complaints of shortness of breath. Patient currently is alert oriented x 3, following all commands, reports increased shortness of breath over the last few months, increase lower extremity edema, abdominal edema, weight gain, orthopnea, paroxysmal nocturnal dyspnea, denies any fevers, no chills, no cough, no chest pain, Review of Systems Card: Denies: chest pain Resp: Reports: dyspnea Medications/Allergies Home Medications ?Medication ?Instructions ?Recorded ?Confirmed ?Last Taken ?Type isosorbide dinitrate 20 mg tablet 20 mg PO BID 06/23/19 12/07/24 Unknown History atenolol 100 mg tablet 100 mg PO DAILY #90 tabs 01/25/21 12/07/24 12/07/24 Rx potassium chloride 20 mEq 20 meq PO BID #60 tabs 01/02/23 12/07/24 12/07/24 Rx tablet,extended release amlodipine 5 mg tablet 5 mg PO DAILY 04/02/23 12/07/24 12/07/24 History furosemide 40 mg tablet (Lasix) 40 mg PO QAM 11/28/24 12/07/24 12/06/24 History levothyroxine 75 mcg tablet 75 mcg PO DAILY 11/28/24 12/07/24 12/07/24 History rosuvastatin 40 mg tablet 20 mg PO DAILY 11/28/24 12/07/24 12/06/24 History Allergies Allergy/AdvReac Type Severity Reaction Status Date / Time No Known Allergies Allergy Verified 12/07/24 10:55 PFSH Acute PFSH: Medical History Balance disorder Hyperlipidemia HTN (hypertension) ASHD (arteriosclerotic heart disease) Surgical History 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 Quit in 1989) Vitals/I&O/Wt Last Vital Signs Temp 97.5 F L 12/07/24 10:45 Pulse 60 12/07/24 14:05 Resp 26 H 12/07/24 13:45 BP 140/74 12/07/24 10:45 Pulse Ox 91 12/07/24 14:05 O2 Del Method Room Air 12/07/24 10:45 Weight last 48 hrs Weight 95.708 kg Physical Exam Const: COMMON NORMALS: no acute distress and patient oriented x3 HENMT: COMMON NORMALS: normocephalic HEAD & SCALP: normocephalic Neck/C-Spine: COMMON NORMALS: no JVD Resp: COMMON NORMALS: normal respiratory effort, No retractions, No use of accessory muscles and clear to auscultation bilaterally AUSCULTATION: crackles Cardio: COMMON NORMALS: regular rate, regular rhythm, S1 normal heart sound present and S2 normal heart sound present RATE: regular rate RHYTHM: regular rhythm HEART SOUNDS: S1 normal heart sound present and S2 normal heart sound present GI: COMMON NORMALS: Normal to inspection, nondistended, normoactive bowel sounds present, Soft to palpation and non-tender Extremity: NARRATIVE EXTREMITY EXAM: 3+ pitting edema bilateral extremity Neuro: COMMON NORMALS: patient oriented x3, CN's II-XII intact bilaterally and moves all extremities Psych: COMMON NORMALS: mental status grossly normal Data 12/07/24 10:34 12/07/24 10:34 A&P Assessment and plan 1. NSTEMI (non-ST elevated myocardial infarction): 2. Acute exacerbation of CHF (congestive heart failure): 3. ASHD (arteriosclerotic heart disease): 4. Atrial fibrillation: 5. Hyperlipidemia: 6. Pleural effusion, right: Plan: Acute systolic CHF exacerbation -BNP over 10,000, bilateral extremity pitting edema Plan - Urine output, monitoring - Monitor BnP - Monitor potassium - Lasix 40 IV twice daily -CT chest - Monitor respiratory status closely NSTEMI - With history of CAD, CABG Plan - Aspirin, statin - Cardiac echo - Serial EKGs, serial troponins, telemetry monitoring - Heparin drip Right pleural effusion - Had a thoracentesis 11/28/2024, 1 L removed, clear yellow pleural fluid - 144 WBCs, negative for malignancy - CT chest History of atrial fibrillation? - Patient denies history of atrial fibrillation History of leukemia Full code Heparin drip DVT prophylaxis PDMP PDMP Reviewed: Not Reviewed Attestations Medical Necessity Statement*: Patient requires hospitalization for acute systolic CHF exacerbation, NSTEMI, right pleural effusion, Diagnoses NSTEMI (non-ST elevated myocardial infarction) I21.4 Acute exacerbation of CHF (congestive heart failure) I50.9 ASHD (arteriosclerotic heart disease) I25.10 Atrial fibrillation I48.91 Hyperlipidemia E78.5 Pleural effusion, right J90
--- NOTE | 2024-12-07 15:10 | CTR_ITS ---
PROCEDURE INFORMATION: Exam: CT Chest Without Contrast; Diagnostic Exam date and time: 12/07/2024 4:03 PM Age: 89 years old Clinical indication: Shortness of breath; Additional info: SOB TECHNIQUE: Imaging protocol: Diagnostic computed tomography of the chest without contrast. Radiation optimization: All CT scans at this facility use at least one of these dose optimization techniques: automated exposure control; mA and/or kV adjustment per patient size (includes targeted exams where dose is matched to clinical indication); or iterative reconstruction. COMPARISON: CR XR chest 1V portable [id number] 12/07/2024 10:53 AM RADIATION DOSE METRICS: Total DLP (mGy-cm): 674.93 FINDINGS: Lungs: Subsegmental atelectasis in the right middle lobe. Compressive atelectasis in bilateral lower lobes. 4 mm left apical nodule on series 4, image 11. 4 mm pleural-based left upper lobe nodule on image 16. Pleural spaces: Moderate bilateral pleural effusions, dbsme-ydmbaoh-sobo-left. Heart: Mild cardiomegaly. No pericardial effusion. Coronary arteries: Extensive calcifications of the [place] coronary arteries. Lymph nodes: Unremarkable. No enlarged lymph nodes. Vasculature: Diffuse aortic calcifications. The ascending thoracic aorta measures 4.1 cm in diameter. The main pulmonary artery is dilated to 3.2 cm. Diaphragm: Small sliding-type hiatal hernia. Intraperitoneal space: Small volume ascites in the upper abdomen. Bones/joints: Post median sternotomy and CABG. 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 Diffuse osseous demineralization. Multilevel degenerative changes of the visualized spine. Well-healed median sternotomy. Lumbar fusion hardware partially imaged. Soft tissues: Unremarkable. CT/CT chest con [id number] IMPRESSION: 1. Moderate bilateral pleural effusions, xcqlb-ubwaxwf-zdya-left, with adjacent compressive atelectasis in bilateral lower lobes. Superimposed infection/aspiration difficult to exclude. 2. Mildly dilated ascending thoracic aorta measuring 4.1 cm. Recommend clinical assessment and follow-up. 3. Mildly dilated main pulmonary artery can be seen with pulmonary arterial hypertension. 4. Sub 6 mm pulmonary nodules. For patients at low risk (minimal or absent history of smoking and of other known risk factors), no routine follow-up is indicated. For patients at high risk (history of smoking or of other known risk factors), consider optional CT Chest at 12 months. (Reference: Coby) REFERENCES: Coby Zavala, et al. Guidelines for Management of Incidental Pulmonary Nodules Detected on CT Images: From the Fleischner Society 2017. Radiology. 2017;284(1):228-243.
[2024-12-07 15:40] LABS: Glucose Urine UA Negative (Normal); Nitrate Urine Negative (Negative); Specific Gravity, Urine 1.007 (1.005-1.030)
[2024-12-07 15:43] LABS: Estmated Average Glucose 123; Hemoglobin A1C 5.9 % (4.0-6.0)
[2024-12-07 15:46] LABS: Add Urine Microscopic? YES
[2024-12-07 16:13] LABS: Cholesterol 118 mg/dL (0-200); HDL Cholesterol 45 mg/dL (60-100); Triglycerides 91 mg/dL (0-150)
--- NOTE | 2024-12-07 16:20 | ECG_ITS ---
[employer] Test Date: 2024-12-07 Pat Name: Nate Riddle Department: Room: 101 Gender: Male Surgical Forceps Fabricator: : 1935 Requested By: Derrell Rios Order Number: [id number] Simon MD: Ronald Pedroza M.D. Measurements Intervals [place] Rate: 59 P: 0 [place]: 0 QRS: 263 QRSD: 161 T: 43 QT: 510 QTc: 509 Interpretive Statements UNCERTAIN IRREGULAR RHYTHM RIGHT AXIS DEVIATION [QRS AXIS > 100] RIGHT BUNDLE BRANCH BLOCK [120+ ms QRS DURATION, UPRIGHT V1, 40+ ms S IN I/aVL/V4/V5/V6] ANTERIOR MYOCARDIAL INFARCTION , OF INDETERMINATE AGE [40+ ms Q WAVE AND/OR ST/T ABNORMALITY IN V3/V4] INFERIOR MYOCARDIAL INFARCTION , PROBABLY OLD [40+ ms Q WAVE AND/OR ST/T ABNORMALITY IN II/aVF] Compared to ECG 12/07/2024 12:29:51 No significant changes Electronically Signed On 12-17-2024 13:06:16 CDT by Ronald Pedroza M.D. [email or web address]
[2024-12-07] MEDS: pantoprazole 40 mg SDV IVP (16:39)
[2024-12-07 17:49] LABS: Troponin 5 6HR Delta -13.9 ng/L (0-12)
[2024-12-07 17:50] LABS: Troponin 5 6HR 106.1 ng/L (0-15)
[2024-12-07 19:34] LABS: INR 1.23 (0.8-1.2); Prothrombin Time 16.30 SECONDS (12.1-14.9)
--- NOTE | 2024-12-07 19:45 | PC.NURSE ---
patient's wallet with $260 was placed in the CSU pyxis. Money counted with patient and with Yina Sandoval CNA
[2024-12-07 19:52] LABS: Partial Thromboplastin Time > 250.0 SECONDS (23.9-36.7)
--- NOTE | 2024-12-07 19:56 | PC.NURSE ---
lab reported a PTT of greater than 250, heparin stopped at 1954.
--- OUTSIDE RECORDS SUMMARY | 2024-12-07 20:21 | XMS_ITS | Encounter Summary ---
Author Organization [facility] Address [address] [place] [address] Care Team Providers Care Webfed Offset Press Operator Name Role Phone Mauricio Ivy MD Primary Care Provider [phone] Encounter Details Date Type Department Care Team (Latest Contact Info) Description 01/15/2000 Outpatient Historical [facility] Cardiology- [place] [address] [place] [address] Mauricio Ivy MD [address] [place] [address] Other and unspecified angina pectoris (Primary Dx); Coronary atherosclerosis of [place] coronary artery Social History Tobacco Use Types Packs/Day Years Used Date Smoking Tobacco: Never Assessed Sex and Gender Information Value Date Recorded Sex Assigned at Not on file Legal Sex Male 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
--- OUTSIDE RECORDS SUMMARY | 2024-12-07 20:21 | XMS_ITS | Encounter Summary ---
Author Organization [facility] Address [address] [place] [address] Care Team Providers Care Compilation Clerk Name Role Phone Mauricio Ivy MD Primary Care Provider [phone] Encounter Details Date Type Department Care Team (Latest Contact Info) Description 12/07/2006 Outpatient Historical [facility] Cardiology- [place] [address] [place] [address] Vane Sun, CODE ENFORCEMENT OFFICER [address] [place] [address] Coronary Atherosclerosis of [place] Coronary Artery (Primary Dx); Unspecified Essential Hypertension; Unspecified Chest Pain; Other and Unspecified Hyperlipidemia Social History Tobacco Use Types Packs/Day Years Used Date Smoking Tobacco: Never Assessed Sex and Gender Information Value Date Recorded Sex Assigned at Not on file Legal Sex Male 6:04 AM LATH HAND Gender Identity Not on file Sexual Orientation Not on file documented as of this encounter Plan of Treatment Not on file documented as of this encounter Visit Diagnoses Diagnosis Coronary atherosclerosis of [place] coronary artery- Primary Unspecified essential hypertension Chest pain, unspecified Other and unspecified hyperlipidemia documented in this encounter Care Teams Compilation Clerk Relationship Specialty Start Date End Date Mauricio Ivy MD [address] [facility] [address] [place] [address] PCP - General 01/15/06 documented as of this encounter
--- OUTSIDE RECORDS SUMMARY | 2024-12-07 20:21 | XMS_ITS | Encounter Summary ---
Author Organization [employer] Address [address] [facility] Attn: [place] [address] Care Team Providers Care Artificial Log Machine Operator Name Role Phone Mauricio Ivy MD Primary Care Provider [phone] Encounter Details Date Type Department Care Team (Late st Contact Info) Description 02/06/2000 Outpatient Historical Mauricio Ivy MD [address] [place] [address] Social History Tobacco Use Types Packs/Day Years Used Date Smoking Tobacco: Never Assessed Sex and Gender Information Value Date Recorded Sex Assigned at Not on file Legal Sex Male 6: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
--- OUTSIDE RECORDS SUMMARY | 2024-12-07 20:21 | XMS_ITS | Encounter Summary ---
Author Organization [employer] [facility] Address [address] [place] [address] Care Team Providers Care Computer Field Technician Name Role Phone Mauricio Ivy MD Primary Care Provider [phone] Encounter Details Date Type Department Care Team (Late st Contact Info) Description 01/15/2006 Inpatient Historical [facility] Mauricio Ivy MD [address] [facility] [address] [place] [address] Coronary Atherosclerosis of [place] Coronary Artery (Primary Dx) Social History Tobacco Use Types Packs/Day Years Used Date Smoking Tobacco: Never Assessed Sex and Gender Information Value Date Recorded Sex Assigned at Not on file Legal Sex Male 6:04 AM SAND PLANT ATTENDANT Gender Identity Not on file Sexual Orientation [...] TESTING Final R esult Performing Organization Address City/[facility] Co de Phone Number INTERFACE SYSTEM Refer to clinic/hospital department * (ABNORMAL) POC ACTIVATED CLOTTING TIME (01/15/2006 4:49 PM CDT) [facility] ACT POC 188(H) 79 - 149 sec INTERFACE SYSTEM 01/15/2006 4:49 PM CDT Mauricio Ivy MD POINT OF CARE TESTING Final R ult Performing Organization Address [facility] de Phone Number INTERFACE SYSTEM Refer to clinic/hospital department * (ABNORMAL) CBC WITHOUT DIFFERENTIAL (01/15/2006 9:32 AM CDT) [facility] WBC 6.1 4.8 - 10.8 K/ul INTERFACE [...] ORDERABLES Final R esult Performing Organization Address City/[facility] de Phone Number INTERFACE SYSTEM Refer [...] Goal INR 3.0; range 2.5 - 3.5 POST-DC Goal INR 2.5; range 2.0 - 3.0 or Goal 3.0; range 2.5 - 3.5 Atrial Fibrillation Goal INR 2.5; range 2.0 - 3.0 Ischemic Stroke Goal INR 2.5; range 2.0 - 3.0 For additional information see Guidelines for Anticoagulation available from the pharmacy Sima Bloden D. PTT 29.4 21.5 - 34.4 Secs [...] ORDERABLES Final R esult Performing Organization Address City/[facility]/ZIP Co de Phone Number INTERFACE SYSTEM [...] encounter Visit Diagnoses Diagnosis Coronary atherosclerosis of [place] coronary artery- Primary documented in this encounter Care Teams Computer Field Technician Relationship Specialty Start Date End Date Mauricio Ivy MD [address] [facility] [address] [place] [address] PCP - General 01/15/06 documented as of this encounter
--- OUTSIDE RECORDS SUMMARY | 2024-12-07 20:21 | XMS_ITS | Encounter Summary ---
Author Organization [facility] Address [address] [place] [address] Care Team Providers Care Ict Teacher Name Role Phone Mauricio Ivy MD Primary Care Provider [phone] Encounter Details Date Type Department Care Team (Latest Contact Info) Description 02/16/2006 Outpatient Historical [facility] Cardiology Ancillary Services-[place] [address] [place] [address] Deep Nye MD NO ADDRESS ON FILE Coronary Atherosclerosis of [place] Coronary Artery (Primary Dx); Unspecified Chest Pain Social History Tobacco Use Types Packs/Day Years Used Date Smoking Tobacco: Never Assessed Sex and Gender Information Value Date Recorded Sex Assigned at Not on file Legal Sex Male 6: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
--- OUTSIDE RECORDS SUMMARY | 2024-12-07 20:21 | XMS_ITS | Encounter Summary ---
Author Organization [facility] Address [address] [place] [address] Care Team Providers Care Mica Builder Name Role Phone Mauricio Ivy MD Primary Care Provider [phone] Encounter Details Date Type Department Care Team (Latest Contact Info) Description 01/28/2007 Outpatient Historical [facility] Cardiology Ancillary Services[place] [address] [place] [address] Eduar Santoro MD [address] [place] [address] Coronary Atherosclerosis of [place] Coronary Artery (Primary Dx); Unspecified Chest Pain Social History Tobacco Use Types Packs/Day Years Used Date Smoking Tobacco: Never Assessed Sex and Gender Information Value Date Recorded Sex Assigned at Not on file Legal Sex Male 6:04 AM HEAD OF STRATEGY Gender Identity Not on file Sexual Orientation Not on file documented as of this encounter Plan of Treatment Not on file documented as of this encounter Visit Diagnoses Diagnosis Coronary atherosclerosis of [place] coronary artery- Primary Chest pain, unspecified documented in this encounter Care Teams Mica Builder Relationship Specialty Start Date End Date Mauricio Ivy MD [address] [place] [address] PCP - General 01/15/06 documented as of this encounter
--- OUTSIDE RECORDS SUMMARY | 2024-12-07 20:21 | XMS_ITS | Clinical Summary ---
Author Organization [facility] Address [address] [facility] Attn: [place] [address] Care Team Providers Care Upholstery Repairer Name Role Phone Mauricio Ivy MD Primary Care Provider [phone] Social History Tobacco Use Types Packs/Day Years Used Date Smoking Tobacco: Never Assessed Sex and Gender Information Value Date Recorded Sex Assigned at Not on file Legal Sex Male 6:04 AM ROLL ON MAN Gender Identity Not on file Sexual Orientation Not on file Plan of Treatment Health Maintenance Due Date Last Done Comments DTAP/TDAP/TD VACCINES (1 - Tdap) 1954 PNEUMOCOCCAL VACCINE 50+ YEARS (1 of 1 - PCV) 07/23/18 88 ZOSTER VACCINE (1 of 2) 07/24/1987 RSV VACCINE (60+ or ) (1 - 1-dose 75+ series) 2012 INFLUENZA VACCINE (#1) 2024 Care Teams Upholstery Repairer Relationship Specialty Start Date End Date Mauricio Ivy MD [address] [facility] [address] [place] [address] PCP - General 01/15/06
--- OUTSIDE RECORDS SUMMARY | 2024-12-07 20:21 | XMS_ITS | Encounter Summary ---
Author Organization [employer] Address [address] [facility] Attn: [place] [address] Care Team Providers Care Asphalt Plant Laborer Name Role Phone Mauricio vIy MD Primary Care Provider [phone] Encounter Details Date Type Department Care Team (Late st Contact Info) Description 12/23/2001 Outpatient Historical Mauricio Ivy MD [address] [place] [address] Social History Tobacco Use Types Packs/Day Years Used Date Smoking Tobacco: Never Assessed Sex and Gender Information Value Date Recorded Sex Assigned at Not on file Legal Sex Male 6:04 AM INSURANCE CASE MANAGER Gender Identity Not on file Sexual Orientation Not on file documented as of this encounter Plan of Treatment Not on file documented as of this encounter Visit Diagnoses Not on filedocumented in this encounter Care Teams Asphalt Plant Laborer Relationship Specialty Start Date End Date Mauricio Ivy MD [address] [place] [address] PCP - General 01/15/06 documented as of this encounter
--- OUTSIDE RECORDS SUMMARY | 2024-12-07 20:21 | XMS_ITS | Encounter Summary ---
Author Organization [facility] Address [address] [place] [address] Care Team Providers Care Elementary School Professional Name Role Phone Mauricio Ivy MD Primary Care Provider [phone] Encounter Details Date Type Department Care Team (Latest Contact Info) Description 02/16/2006 Outpatient Historical [facility] Cardiology- [place] [address] [place] [address] Vane Sun, WHIPPER BEATER [address] [place] [address] Coronary Atherosclerosis of [place] Coronary Artery (Primary Dx); Unspecified Essential Hypertension; Other and Unspecified Hyperlipidemia Social History Tobacco Use Types Packs/Day Years Used Date Smoking Tobacco: Never Assessed Sex and Gender Information Value Date Recorded Sex Assigned at Not on file Legal Sex Male 6:04 AM EXTRA GANG SUPERVISOR Gender Identity Not on file Sexual Orientation Not on file documented as of this encounter Plan of Treatment Not on file documented as of this encounter Visit Diagnoses Diagnosis Coronary atherosclerosis of [place] coronary artery- Primary Unspecified essential hypertension Other and unspecified hyperlipidemia documented in this encounter Care Teams Elementary School Professional Relationship Specialty Start Date End Date Mauricio Ivy MD [address] [facility] [address] [place] [address] PCP - General 01/15/06 documented as of this encounter
[2024-12-07 21:58] LABS: Thyroid Stimulating Hormone 3.93 uIU/mL (0.27-4.20)
[2024-12-07 23:16] LABS: Partial Thromboplastin Time 62.9 SECONDS (23.9-36.7)
--- NOTE | 2024-12-07 23:42 | PC.NURSE ---
Addendum entered by Arianne Coker RN 12/08/24 04:16: Also contacted about the patients heart rate going down to 40, received orders to contact for a pause that is two seconds or longer. Original Note: Contacted because patients ptt was greater than 250, he said to hold for 2.5 hours and recheck ptt, redraw was 62.9, contacted him to see if he wanted to hold it for longer or what rate he wanted it restarted at, he said to start at half of the orginal rate and recheck in 4 hours. Original rate was 27mls/hr, started at 13.5mls/hr, verified with Meme BENTLEY.
[2024-12-08] VITALS (8 sets, daily range): BP systolic 121–140; BP diastolic 51–79; PULSE 51–72; RESP 15–23; TEMP 36.4–37; O2SAT 93–97
[2024-12-08 03:08] LABS: Hematocrit 34.0 % (37-53); Hemoglobin 11.10 g/dL (11.27-16.99); Mean Corpuscular HGB Conc 32.6 g/dL (30-55); Mean Corpuscular Hemoglobin 28.0 pg (27-33); Mean Corpuscular Volume 85.9 fl (82-101); Nucleated Red Blood Cells % 0 %; Platelet Count 141 10^3/cmm (157-399); Red Blood Count 3.96 10^6/uL (3.85-5.65); White Blood Count 5.26 10^3/uL (3.29-11.43)
[2024-12-08 03:24] LABS: Partial Thromboplastin Time 59.5 SECONDS (23.9-36.7)
[2024-12-08 03:35] LABS: Anion Gap 15.6 (5-19); Blood Urea Nitrogen 20 mg/dL (8-23); Calcium 9.1 mg/dL (8.5-10.5); Carbon Dioxide 26 mmol/L (22-29); Chloride 98 mmol/L (98-107); Creatinine Clr Calc Pharmacy 55.0879; Glucose 111 mg/dL (65-115); Osmolality Calculated 285 mOsm/kg (285-295); Potassium 3.6 mmol/L (3.5-5.1); Sodium 136 mmol/L (136-145)
[2024-12-08 03:42] LABS: NT Pro B Type Natriuretic Pept 13243 pg/mL (0-450)
[2024-12-08] MEDS: FUROsemide 10 mg/mL SDV 4mL 40 MG IVP ×2 (05:55→17:45)
--- NOTE | 2024-12-08 08:52 | ECG_ITS ---
[facility]: 2024-12-08 Pat Name: Nate Riddle Department: Room: 101 Gender: Male Marketing Copywriter: : 1935 Requested By: Olivia Escalante Order Number: [id number] Simon MD: Ronald Pedroza M.D. Measurements Intervals [place] Rate: 66 P: 0 VT: 0 QRS: -46 QRSD: 170 T: 139 QT: 491 QTc: 516 Interpretive Statements ATRIAL FIBRILLATION LEFT AXIS DEVIATION [QRS AXIS < -30] LEFT BUNDLE BRANCH BLOCK [120+ ms QRS DURATION, 80+ ms Q/S IN V1/V2, 85+ ms R IN I/aVL/V5/V6] Compared to ECG 12/07/2024 16:25:57 Left-axis deviation now present Left bundle-branch block now present Right-axis deviation no longer present Right bundle-branch block no longer present Myocardial infarct finding no longer present Electronically Signed On 12-17-2024 13:04:20 CDT by Ronald Pedroza M.D. [id number] [id number]
[2024-12-08 09:44] LABS: Partial Thromboplastin Time 60.6 SECONDS (23.9-36.7)
--- NOTE | 2024-12-08 09:48 | PC.CHAP ---
Pastoral Care Encounter/Spiritual Assessment Type of Contact [] Declined waiter/waitress third class visit [] Patient/Family/Request visit [] Outpatient visit [] Follow-up visit [] Physician referral [] Code/Alert [x] Routine visit [] Staff referral [] Actively dying [] Patient sleeping [] Family support [] [] Out of room [] Palliative care [] [] Receiving care in room [] Pre-surgical visit [] Trauma [] Long length of stay [] ICU visit [] Other: Relational/Emotional Strength [x] Patient feels connected with others/family/visitors/staff [] Distress [] Loneliness/isolation [] Abandonment Spirituality of Patient [x] Person of Sharda [] Attends Religious of their Sharda [x] Believes in Prayer [] Reads Bible or Anglican materials [] There are Spiritual issues to be addressed Hydraulic Technician Interventions [x] Prayer [x] Active listening [x] Non-anxious presence [x] Spiritual/emotional support [] Crisis/trauma care [] Spiritual counseling [] Bereavement support [] Provided bereavement packet [] Provided Bible/devotional materials [] Provided toy/stuffed animal, coloring book to patient or family member [] Provided Communion [] Anointing/[place] [] Salvation [x] Completed spiritual assessment [] Other: Impact on Illness or Injury [] Angry [] Fearful [] Anxious [] Often cries [] Exhaustion [] Unable to work [] Unable to attend gnosticist [] Unable to walk/stand [] Unable to read [] Unable to drive [] Unable to eat/drink [] Unable to sleep [] Unable to be with family [] Patient intubated [] Other: Summary Time spent with patient 5 min
--- NOTE | 2024-12-08 11:04 | P.CONIM_ITS ---
<Statement entered by Rishabh Palma MD - 12/09/24 15:50> Patient was evaluated and cared for in conjunction with an advanced practice practitioner. I personally examined the patient and reviewed the chart and all pertinent data including imaging, telemetry, and laboratory results. I discussed the patient in detail with the advanced practice practitioner. Please see their note for complete H&P testing result and agreed upon plan of care for the patient. Providers/Reason For Consult 2 Consulting Physician/Specialty*: Dr Julissa Palma, interventional cardiology Reason for Consult*: Systolic CHF, volume overload Requesting Physician: Juan Bo MD Attending Physician: Juan Bo MD Primary Care Provider: Serenity Gamez MD History of Present Illness History of Present Illness Nate Riddle is a 89 year old male with past medical history of CAD s/p CABG in 2016, hypertension, hyperlipidemia, former smoker, history of thoracentesis on 11/28/2024. He presented to the emergency room yesterday at the direction of our interventional diesel maintenance electrician Dr. Tate, due to significant volume overload with symptoms of dyspnea, PND, and abdominal and lower extremity edema. EKG consistent with atrial fibrillation with slow ventricular response and junctional rhythm/accelerated junctional rhythm, right bundle branch block, QRS duration in the 150 ms range, QTc around 450ms. In review of telemetry he has had bradycardic heart rates at night as low as 37 bpm, however is asymptomatic. He has not had any syncope prior to admission, and no pauses have been noted on telemetry. Troponin series: 120-> 117-> 106. Normal renal function, BNP 95764. Echocardiogram revealed LVEF 45 to 50% which is decreased from 57% in 2016, dilated left atrium, mild mitral regurgitation, dilated IVC. CT of the chest performed yesterday: Moderate bilateral pleural effusions right greater than left, small volume ascites in the upper abdomen, mildly dilated PA. Review of Systems 2 Const: Denies: fever(s), chills, fatigue or diaphoresis Eyes: Denies: change in vision ENMT: Denies: epistaxis Card: Reports: edema, swelling of feet/ankles, dyspnea on exertion and orthopnea; Denies: chest pain, palpitations, irregular heart rhythm, lightheadedness, syncope, pre-syncope or leg pain with exertion Resp: Denies: dyspnea, productive cough or wheezing GI: Denies: nausea, vomiting, hematemesis, hematochezia or melena : Denies: hematuria Julio/Lymph: Denies: easy bruising or easy bleeding Medications/Allergies Home Medications ?Medication ?Instructions ?Recorded ?Confirmed ?Last Taken ?Type isosorbide dinitrate 20 mg tablet 20 mg PO BID 0 12/07/24 Unknown History atenolol 100 mg tablet 100 mg PO DAILY #90 tabs 05/1712/07/24 12/07/24 Rx potassium chloride 20 mEq 20 meq PO BID #60 tabs 01/0212/07/24 12/07/24 Rx tablet,extended release amlodipine 5 mg tablet 5 mg PO DAILY 04/02/2312/0712/07/24 History furosemide 40 mg tablet (Lasix) 40 mg PO QAM 11/28/24 12/07/24 12/06/24 History levothyroxine 75 mcg tablet 75 mcg PO DAILY 11/28/24 0 12/07/24 12/07/24 History rosuvastatin 40 mg tablet 20 mg PO DAILY 11/28/2411/2512/06/24 History Allergies Allergy/AdvReac Type Severity Reaction Status Date / Time No Known Allergies Allergy Verified 12/07/24 10:55 Current Medications Generic Name Dose Route Start Last Admin Trade Name Freq PRN Reason Stop Dose Admin Aspirin 81 mg 12/08/24 09:00 12/08/24 08:59 Aspirin 81 Mg Ec Tablet PO 81 mg DAILY CLARKE Administration Atorvastatin Calcium 80 mg 12/07/24 21:00 12/07/24 20:39 Atorvastatin 40 Mg Tablet PO 80 mg BEDTIME CLARKE Administration Furosemide 40 mg 12/07/24 18:00 12/08/24 05:55 Furosemide 10 Mg/Ml Sdv 4ml IVP 40 mg Q12H CLARKE Administration Hydroxyzine Pamoate 25 mg 12/07/24 18:54 12/07/24 20:39 Hydroxyzine 25 Mg Capsule PO 25 mg ONCE PRN Administration ANXIETY Heparin Sodium/Sodium Chloride 25,000 unit in 500 mls @ 0 mls/hr 12/07/24 12:15 12/08/24 09:54 Heparin Drip IV 7.05 unit/kg/hr CONT CLARKE 13.5 mls/hr Protocol Titration Per Protocol Isosorbide Dinitrate 20 mg 12/07/24 18:00 12/08/24 08:59 Isosorbide Dinitrate 20 Mg Tablet PO 20 mg BID CLARKE Administration Levothyroxine Sodium 75 mcg 12/08/24 09:00 12/08/24 08:59 Levothyroxine 75 Mcg Tablet PO 75 mcg DAILY CLARKE Administration Pantoprazole Sodium 40 mg 12/07/24 16:00 12/07/24 16:39 Pantoprazole 40 Mg Sdv IVP 40 mg Q24H CLARKE Administration Potassium Chloride 20 meq 12/07/24 18:00 12/08/24 08:59 Potassium Chloride Er 20 Meq Tablet PO 20 meq BID CLARKE Administration PFSH Acute 2 PFSH: Medical History History of leukemia Balance disorder Hyperlipidemia HTN (hypertension) ASHD (arteriosclerotic heart disease) Surgical History 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 Quit in 1989) Vitals/I&O/Wt Last Vital Signs Temp 97.9 F 12/08/24 07:14 Pulse 57 L 12/08/24 09:31 Resp 18 12/08/24 09:31 BP 135/65 12/08/24 07:14 Pulse Ox 94 12/08/24 09:31 O2 Del Method Nasal Cannula 12/08/24 09:31 O2 Flow Rate 2 12/08/24 09:31 12/07/24 12/08/24 12/08/24 22:59 06:59 14:59 Intake Total 433.05 / 685.025 251.975 / 685.025 447.3 / 447.3 Output Total 650 / 1050 400 / 1050 450 / 450 Balance -216.95 / -364.975 -148.025 / -364.975 -2.7 / -2.7 Weight last 48 hrs Weight 204 lb 11.2 oz Weight 206 lb 3 oz Weight 211 lb Physical Exam 2 Const: COMMON NORMALS: no acute distress and patient oriented x3 GENERAL APPEARANCE: cooperative and comfortable ORIENTATION/CONSCIOUSNESS: Yes awake, Yes oriented to person, Yes oriented to place and Yes oriented to time Chest: COMMONS NORMALS: normal inspection of the chest and normal palpation of entire chest wall CHEST: Yes Symmetrical chest wall rise Resp: COMMON NORMALS: normal respiratory effort, No retractions and No use of accessory muscles EFFORT & INSPECTION: Yes symmetric chest movement A USCULTATION: crackles and diminished lung sounds bilateral in the lower lung cristobal Cardio: COMMON NORMALS: regular rate, regular rhythm, S1 normal heart sound present, S2 normal heart sound present, No gallops present (Cardio), No clicks present (Cardio), No murmurs present (Cardio) and No rub (Cardio) RATE: r egular rate RHYTHM: regular rhythm HEART SOUNDS: S1 normal heart sound present and S2 normal heart sound present PERIPHERAL PULSES: radial pulses present OTHER: Has periods of atrial fibrillation and periods of junctional rhythm/accelerated junctional GI: INSPECTION: Yes abdominal distension Extremity: GENERAL: Yes edema (2-3+ pitting edema bilateral lower extremity) Neuro: COMMON NORMALS: patient oriented x3 and moves all extremities S ENSORIUM/ORIENTATION: Yes oriented to person, Yes oriented to place and Yes oriented to time Data 12/08/24 02:39 12/08/24 02:39 A&P Assessment and plan 1. Atrial fibrillation: 2. Elevated troponin: 3. HTN (hypertension): 4. ASHD (arteriosclerotic heart disease): 5. Pleural effusion: 6. Lower extremity edema: 7. Junctional rhythm: Plan: He is quite volume overloaded, will prioritize diuresis first then address the LV dysfunction. He was previously on atenolol at home, recommend to hold any beta-juanita to see how his rhythm will respond. At this point he is not a candidate for pacemaker given his asymptomatic nature. He may require an exercise stress test to evaluate for chronotropic incompetence at some point, likely not this admission. Continue Lasix 40 mg twice daily. Fluid balance currently -300 mL. PDMP PDMP Reviewed: Not Reviewed Coding Level of Care Code Acute Code for [facility] Fwd Diagnoses Atrial fibrillation I48.91 Elevated troponin R79.89 HTN (hypertension) I10 ASHD (arteriosclerotic heart disease) I25.10 Pleural effusion J90 Lower extremity edema R60.0 Junctional rhythm I49.8
--- NOTE | 2024-12-08 12:01 | P.PN_ITS ---
Subjective 2 Subjective: This morning, currently alert oriented x 3, following commands, does report bilateral extremity edema, shortness of breath, is requiring 2 L Vitals/I&O/Wt Last Vital Signs Temp 97.9 F 12/08/24 07:14 Pulse 57 L 12/08/24 09:31 Resp 18 12/08/24 09:31 BP 135/65 12/08/24 07:14 Pulse Ox 94 12/08/24 09:31 O2 Del Method Nasal Cannula 12/08/24 09:31 O2 Flow Rate 2 12/08/24 09:31 12/07/24 12/08/24 12/08/24 22:59 06:59 14:59 Intake Total 433.05 / 433.05 251.975 / 685.025 447.3 / 447.3 Output Total 650 / 650 400 / 1050 450 / 450 Balance -216.95 / -216.95 -148.025 / -364.975 -2.7 / -2.7 Weight last 48 hrs Weight 92.85 kg Weight 93.525 kg Weight 95.708 kg Physical Exam 2 Const: COMMON NORMALS: no acute distress and patient oriented x3 Resp: COMMON NORMALS: normal respiratory effort, No retractions and No use of accessory muscles AUSCULTATION: crackles and wheezes Cardio: COMMON NORMALS: regular rate, regular rhythm, S1 normal heart sound present and S2 normal heart sound present RATE: regular rate RHYTHM: r egular rhythm HEART SOUNDS: S1 normal heart sound present and S2 normal heart sound present GI: COMMON NORMALS: Normal to inspection, nondistended, normoactive bowel sounds present and non-tender Extremity: NARRATIVE EXTREMITY EXAM: 2+ pitting edema bilateral extremity Neuro: COMMON NORMALS: patient oriented x3 Psych: COMMON NORMALS: mental status grossly normal Data 12/08/24 02:39 12/08/24 02:39 A&P Assessment and plan 1. NSTEMI (non-ST elevated myocardial infarction): 2. Acute exacerbation of CHF (congestive heart failure): 3. ASHD (arteriosclerotic heart disease): 4. Atrial fibrillation: 5. Hyperlipidemia: 6. Pleural effusion, right: Plan: Acute systolic CHF exacerbation -BNP over 10,000, bilateral extremity pitting edema CT/CT chest wo con [id number] IMPRESSION: 1. Moderate bilateral pleural effusions, [id number], with adjacent compressive atelectasis in bilateral lower lobes. Superimposed infection/aspiration difficult to exclude. 2. Mildly dilated ascending thoracic aorta measuring 4.1 cm. Recommend clinical assessment and follow-up. 3. Mildly dilated main pulmonary artery can be seen with pulmonary arterial hypertension. 4. Sub 6 mm pulmonary nodules. For patients at low risk (minimal or absent history of smoking and of other known risk factors), no routine follow-up is indicated. For patients at high risk (history of smoking or of other known risk factors), consider optional CT Chest at 12 months. (Reference: [facility]) Plan - Urine output, monitoring - Monitor BnP - Monitor potassium - Lasix 40 IV twice daily - Monitor respiratory status closely NSTEMI - With history of CAD, CABG cardiac echo CONCLUSIONS LV systolic function is mildly reduced with EF of 45-50% Moderate left ventricular hypertrophy Left atrial dilation Mild mitral regurgitation Mild pulmonic regurgitation. IVC appears to be dilated. Plan - Aspirin, statin - Serial EKGs, serial troponins, telemetry monitoring - Heparin drip Right pleural effusion - Had a thoracentesis 11/28/2024, 1 L removed, clear yellow pleural fluid - 144 WBCs, negative for malignancy - CT chest bilateral pleural effusions, right greater than right will consider thoracentesis based on clinical progress History of atrial fibrillation? - Patient denies history of atrial fibrillation - Cardiology consulted History of leukemia Full code Heparin drip DVT prophylaxis PDMP PDMP Reviewed: Not Reviewed Attestations 2 Medical Necessity Statement*: Requires hospitalization for acute CHF exacerbation, requiring IV diuresis, Diagnoses NSTEMI (non-ST elevated myocardial infarction) I21.4 Acute exacerbation of CHF (congestive heart failure) I50.9 ASHD (arteriosclerotic heart disease) I25.10 Atrial fibrillation I48.91 Hyperlipidemia E78.5 Pleural effusion, right J90
[2024-12-08 16:06] LABS: Partial Thromboplastin Time 55.9 SECONDS (23.9-36.7)
[2024-12-08] MEDS: heparin drip 25,000 UNIT/500 ML PREMIX 13.5 UNIT IV (16:36)
[2024-12-08] MEDS: pantoprazole 40 mg SDV IVP (16:36)
[2024-12-08 22:26] LABS: Partial Thromboplastin Time 54.3 SECONDS (23.9-36.7)
[2024-12-09] VITALS (10 sets, daily range): BP systolic 118–134; BP diastolic 65–73; PULSE 59–76; RESP 12–27; TEMP 36.3–36.8; O2SAT 93–96
[2024-12-09 04:54] LABS: Hematocrit 35.0 % (37-53); Hemoglobin 11.30 g/dL (11.27-16.99); Mean Corpuscular HGB Conc 32.3 g/dL (30-55); Mean Corpuscular Hemoglobin 27.8 pg (27-33); Mean Corpuscular Volume 86.2 fl (82-101); Nucleated Red Blood Cells % 0 %; Platelet Count 133 10^3/cmm (157-399); Red Blood Count 4.06 10^6/uL (3.85-5.65); White Blood Count 5.18 10^3/uL (3.29-11.43)
[2024-12-09 05:16] LABS: Partial Thromboplastin Time 73.3 SECONDS (23.9-36.7)
[2024-12-09 05:18] LABS: Alanine Aminotransferase 12 U/L (0-41); Albumin Level 4.1 g/dL (3.5-5.2); Alkaline Phosphatase 77 U/L (40-130); Anion Gap 17.7 (5-19); Aspartate Amino Transferase 26 U/L (0-40); Blood Urea Nitrogen 20 mg/dL (8-23); Calcium 9.5 mg/dL (8.5-10.5); Carbon Dioxide 26 mmol/L (22-29); Chloride 95 mmol/L (98-107); Creatinine Clr Calc Pharmacy 43.2833; Globulin 2.9 g/dL (1.3-4.6); Glucose 95 mg/dL (65-115); Magnesium 1.9 mg/dL (1.7-2.3); Osmolality Calculated 282 mOsm/kg (285-295); Potassium 3.7 mmol/L (3.5-5.1); Sodium 135 mmol/L (136-145); Total Protein 7.0 g/dL (6.6-8.7)
[2024-12-09 05:58] LABS: NT Pro B Type Natriuretic Pept 10855 pg/mL (0-450)
[2024-12-09] MEDS: FUROsemide 10 mg/mL SDV 4mL 40 MG IVP ×2 (05:59→18:08)
--- NOTE | 2024-12-09 08:56 | P.PN_ITS ---
<Statement entered by Rishabh Palma MD - 12/09/24 15:51> Patient was evaluated and cared for in conjunction with an advanced practice practitioner. I personally examined the patient and reviewed the chart and all pertinent data including imaging, telemetry, and laboratory results. I discussed the patient in detail with the advanced practice practitioner. Please see their note for complete H&P testing result and agreed upon plan of care for the patient. Subjective 2 Subjective: He has done well overnight, sitting on the side of the bed this morning. Responding well to gentle diuresis, -1697 for the last 24 hours, -2061 cumulative this admission. BNP 10,855, down from 13,000. Creatinine increased to 1.4 today from 1.1 yesterday. Vitals/I&O/Wt Last Vital Signs Temp 98.0 F 12/09/24 07:55 Pulse 71 12/09/24 07:55 Resp 21 H 12/09/24 07:55 BP 132/68 12/09/24 07:55 Pulse Ox 95 12/09/24 07:55 O2 Del Method Nasal Cannula 12/09/24 07:55 O2 Flow Rate 2 12/08/24 23:17 12/08/24 12/09/24 12/09/24 22:59 06:59 14:59 Intake Total 172.35 / 1202.725 583.075 / 1202.725 Output Total 850 / 2900 1250 / 2900 850 / 850 Balance -677.65 / -1697.275 -666.925 / -1697.275 -850 / -850 Weight last 48 hrs Weight 203 lb 6.4 oz Weight 204 lb 11.2 oz Weight 206 lb 3 oz Weight 211 lb Physical Exam 2 Const: COMMON NORMALS: no acute distress and patient oriented x3 GENERAL APPEARANCE: cooperative and comfortable ORIENTATION/CONSCIOUSNESS: Yes awake, Yes oriented to person, Yes oriented to place and Yes oriented to time Chest: COMMONS NORMALS: normal inspection of the chest and normal palpation of entire chest wall CHEST: Yes Symmetrical chest wall rise Resp: COMMON NORMALS: normal respiratory effort, No retractions, No use of accessory muscles and clear to auscultation bilaterally EFFORT & INSPECTION: Yes symmetric chest movement AUSCULTATION: clear to auscultation bilaterally Cardio: COMMON NORMALS: regular rate, regular rhythm, S1 normal heart sound present, S2 normal heart sound present, No gallops present (Cardio), No clicks present (Cardio), No murmurs present (Cardio) and No rub (Cardio) RATE: r egular rate RHYTHM: regular rhythm HEART SOUNDS: S1 normal heart sound present and S2 normal heart sound present PERIPHERAL PULSES: radial pulses present Extremity: GENERAL: Yes edema (2+ pitting edema bilateral lower extremities below the knee) Neuro: COMMON NORMALS: patient oriented x3 and moves all extremities S ENSORIUM/ORIENTATION: Yes oriented to person, Yes oriented to place and Yes oriented to time Data 12/09/24 04:45 12/09/24 04:45 A&P Assessment and plan 1. Atrial fibrillation: 2. Junctional rhythm: 3. Elevated troponin: 4. HTN (hypertension): 5. ASHD (arteriosclerotic heart disease): 6. Lower extremity edema: Plan: He still has significant lower extremity edema after improvement in shortness of breath, suspecting some component of venous insufficiency. He still requires diuresis with IV Lasix. Heart rate has improved, he has dropped into the 50s while asleep, while awake 60-70. He does not note any dizziness, shortness of breath or chest pain when heart rate is low. Patient prefers medical management for heart failure, would rather avoid invasive testing at this time. Once he is euvolemic we can start low-dose Entresto if renal function and blood pressure allow. PDMP PDMP Reviewed: Not Reviewed Attestations 2 Medical Necessity Statement*: continued diuresis Coding Level of Care Code Acute Code for [facility] Fwd Diagnoses Atrial fibrillation I48.91 Junctional rhythm I49.8 Elevated troponin R79.89 HTN (hypertension) I10 ASHD (arteriosclerotic heart disease) I25.10 Lower extremity edema R60.0
--- NOTE | 2024-12-09 09:35 | PC.SOCIAL ---
IMM Update Updated pt on IMM. No questions voiced. Provided pt a copy. Initialed, dated, & timed a copy & placed in chart.
[2024-12-09 11:51] LABS: Partial Thromboplastin Time 65.7 SECONDS (23.9-36.7)
--- NOTE | 2024-12-09 13:57 | P.PN_ITS ---
Subjective 2 Subjective: Patient was seen this morning, continues to complain of lower extremity edema, persistent shortness of breath, no chest pain, palpitations, he is worried that were not taking enough fluid off of him Vitals/I&O/Wt Last Vital Signs Temp 97.8 F 12/09/24 11:58 Pulse 66 12/09/24 11:58 Resp 18 12/09/24 11:58 BP 118/69 12/09/24 11:58 Pulse Ox 96 12/09/24 11:58 O2 Del Method Nasal Cannula 12/09/24 11:58 O2 Flow Rate 2 12/09/24 09:24 12/08/24 12/09/24 12/09/24 22:59 06:59 14:59 Intake Total 172.35 / 619.65 583.075 / 1202.725 223.592 / 223.592 Output Total 850 / 1650 1250 / 2900 1600 / 1600 Balance -677.65 / -1030.35 -666.925 / -1697.275 -1376.408 / -1376.408 Weight last 48 hrs Weight 92.261 kg Weight 92.85 kg Weight 93.525 kg Physical Exam 2 Const: COMMON NORMALS: no acute distress and patient oriented x3 Resp: COMMON NORMALS: normal respiratory effort, No retractions and No use of accessory muscles AUSCULTATION: crackles and wheezes Cardio: COMMON NORMALS: regular rate, regular rhythm, S1 normal heart sound present and S2 normal heart sound present RATE: regular rate RHYTHM: r egular rhythm HEART SOUNDS: S1 normal heart sound present and S2 normal heart sound present GI: COMMON NORMALS: Normal to inspection, nondistended, normoactive bowel sounds present and non-tender Extremity: COMMON NORMALS: no pedal edema Neuro: COMMON NORMALS: patient oriented x3, CN's II-XII intact bilaterally and moves all extremities Psych: COMMON NORMALS: mental status grossly normal Data 12/09/24 04:45 12/09/24 04:45 A&P Assessment and plan 1. NSTEMI (non-ST elevated myocardial infarction): 2. Acute exacerbation of CHF (congestive heart failure): 3. ASHD (arteriosclerotic heart disease): 4. Atrial fibrillation: 5. Hyperlipidemia: 6. Pleural effusion, right: Plan: Acute systolic CHF exacerbation -BNP over 10,000, bilateral extremity pitting edema CT/CT chest wo con [id number] IMPRESSION: 1. Moderate bilateral pleural effusions, [id number]-left, with adjacent compressive atelectasis in bilateral lower lobes. Superimposed infection/aspiration difficult to exclude. 2. Mildly dilated ascending thoracic aorta measuring 4.1 cm. Recommend clinical assessment and follow-up. 3. Mildly dilated main pulmonary artery can be seen with pulmonary arterial hypertension. 4. Sub 6 mm pulmonary nodules. For patients at low risk (minimal or absent history of smoking and of other known risk factors), no routine follow-up is indicated. For patients at high risk (history of smoking or of other known risk factors), consider optional CT Chest at 12 months. (Reference: [facility]) Plan - Urine output, monitoring - Monitor BnP - Monitor potassium - Lasix 40 IV twice daily, 1 dose of metolazone - Monitor respiratory status closely NSTEMI - With history of CAD, CABG cardiac echo CONCLUSIONS LV systolic function is mildly reduced with EF of 45-50% Moderate left ventricular hypertrophy Left atrial dilation Mild mitral regurgitation Mild pulmonic regurgitation. IVC appears to be dilated. Plan - Aspirin, statin - Serial EKGs, serial troponins, telemetry monitoring - Heparin drip Right pleural effusion - Had a thoracentesis 11/28/2024, 1 L removed, clear yellow pleural fluid - 144 WBCs, negative for malignancy - CT chest bilateral pleural effusions, right greater than right will consider thoracentesis based on clinical progress History of atrial fibrillation? - Patient denies history of atrial fibrillation - Cardiology consulted Bradycardia, cardiology consulted History of leukemia Full code Heparin drip DVT prophylaxis PDMP PDMP Reviewed: Not Reviewed Attestations 2 Medical Necessity Statement*: Patient requires hospitalization for fluid overload, requiring IV diuresis Diagnoses NSTEMI (non-ST elevated myocardial infarction) I21.4 Acute exacerbation of CHF (congestive heart failure) I50.9 ASHD (arteriosclerotic heart disease) I25.10 Atrial fibrillation I48.91 Hyperlipidemia E78.5 Pleural effusion, right J90
[2024-12-09 17:56] LABS: Partial Thromboplastin Time 44.3 SECONDS (23.9-36.7)
[2024-12-09] MEDS: pantoprazole 40 mg SDV IVP (18:08)
[2024-12-09 23:40] LABS: Partial Thromboplastin Time 64.3 SECONDS (23.9-36.7)
[2024-12-10] VITALS (11 sets, daily range): BP systolic 117–146; BP diastolic 61–80; PULSE 63–76; RESP 13–25; TEMP 36.5–36.8; O2SAT 91–94
[2024-12-10] MEDS: heparin drip 25,000 UNIT/500 ML PREMIX 19.5 UNIT IV (00:13)
[2024-12-10] MEDS: morphine 4 mg/mL SDV 1 mL 2 MG IVP (02:45)
[2024-12-10] MEDS: FUROsemide 10 mg/mL SDV 4mL 40 MG IVP ×2 (05:23→16:32)
[2024-12-10 06:08] LABS: Hematocrit 33.2 % (37-53); Hemoglobin 10.80 g/dL (11.27-16.99); Mean Corpuscular HGB Conc 32.5 g/dL (30-55); Mean Corpuscular Hemoglobin 27.7 pg (27-33); Mean Corpuscular Volume 85.1 fl (82-101); Nucleated Red Blood Cells % 0 %; Platelet Count 141 10^3/cmm (157-399); Red Blood Count 3.90 10^6/uL (3.85-5.65); White Blood Count 4.73 10^3/uL (3.29-11.43)
[2024-12-10 06:27] LABS: NT Pro B Type Natriuretic Pept 11978 pg/mL (0-450)
[2024-12-10 06:52] LABS: Alanine Aminotransferase 12 U/L (0-41); Albumin Level 4.1 g/dL (3.5-5.2); Alkaline Phosphatase 76 U/L (40-130); Anion Gap 15.9 (5-19); Aspartate Amino Transferase 26 U/L (0-40); Blood Urea Nitrogen 19 mg/dL (8-23); Calcium 9.5 mg/dL (8.5-10.5); Carbon Dioxide 30 mmol/L (22-29); Chloride 93 mmol/L (98-107); Globulin 2.3 g/dL (1.3-4.6); Glucose 89 mg/dL (65-115); Magnesium 1.9 mg/dL (1.7-2.3); Osmolality Calculated 282 mOsm/kg (285-295); Potassium 3.9 mmol/L (3.5-5.1); Sodium 135 mmol/L (136-145); Total Protein 6.4 g/dL (6.6-8.7)
[2024-12-10 07:11] LABS: Partial Thromboplastin Time 151.7 SECONDS (23.9-36.7)
[2024-12-10 07:12] LABS: Creatinine Clr Calc Pharmacy 43.9288
[2024-12-10 12:00] LABS: Partial Thromboplastin Time 32.2 SECONDS (23.9-36.7)
--- NOTE | 2024-12-10 12:53 | P.PN_ITS ---
Subjective 2 Medications: Medication Review Details: Patient was seen this morning, currently alert orient x 3, following commands, tells me that shortness of breath improving, edema Vitals/I&O/Wt Last Vital Signs Temp 97.8 F 12/10/24 12:00 Pulse 64 12/10/24 12:00 Resp 13 12/10/24 12:00 BP 117/65 12/10/24 12:00 Pulse Ox 94 12/10/24 12:00 O2 Del Method Room Air 12/10/24 08:16 O2 Flow Rate 2 12/09/24 09:24 12/09/24 12/10/24 12/10/24 22:59 06:59 14:59 Intake Total 573.775 / 797.367 117.658 / 915.025 380.4 / 380.4 Output Total 1950 / 3550 1050 / 4600 850 / 850 Balance -1376.225 / -2752.633 -932.342 / -3684.975 -469.6 / -469.6 Weight last 48 hrs Weight 81 kg Weight 92.261 kg Physical Exam 2 Const: COMMON NORMALS: no acute distress and patient oriented x3 Resp: COMMON NORMALS: normal respiratory effort, No retractions, No use of accessory muscles and clear to auscultation bilaterally AUSCULTATION: clear to auscultation bilaterally Cardio: COMMON NORMALS: regular rate, regular rhythm, S1 normal heart sound present and S2 normal heart sound present RATE: regular rate RHYTHM: r egular rhythm HEART SOUNDS: S1 normal heart sound present and S2 normal heart sound present GI: COMMON NORMALS: Normal to inspection, nondistended, normoactive bowel sounds present and non-tender Extremity: COMMON NORMALS: no pedal edema Neuro: COMMON NORMALS: patient oriented x3 Psych: COMMON NORMALS: mental status grossly normal Data 12/10/24 05:50 12/10/24 05:50 A&P Assessment and plan 1. NSTEMI (non-ST elevated myocardial infarction): 2. Acute exacerbation of CHF (congestive heart failure): 3. ASHD (arteriosclerotic heart disease): 4. Atrial fibrillation: 5. Hyperlipidemia: 6. Pleural effusion, right: Plan: Acute systolic CHF exacerbation -BNP over 10,000, bilateral extremity pitting edema CT/CT chest wo con [id number] IMPRESSION: 1. Moderate bilateral pleural effusions, rvjqt-wahglxz-sqgp-left, with adjacent compressive atelectasis in bilateral lower lobes. Superimposed infection/aspiration difficult to exclude. 2. Mildly dilated ascending thoracic aorta measuring 4.1 cm. Recommend clinical assessment and follow-up. 3. Mildly dilated main pulmonary artery can be seen with pulmonary arterial hypertension. 4. Sub 6 mm pulmonary nodules. For patients at low risk (minimal or absent history of smoking and of other known risk factors), no routine follow-up is indicated. For patients at high risk (history of smoking or of other known risk factors), consider optional CT Chest at 12 months. (Reference: Coby) Plan - Urine output, monitoring - Monitor BnP - Monitor potassium - Lasix 40 IV twice daily, 1 dose of metolazone - Monitor respiratory status closely NSTEMI - With history of CAD, CABG cardiac echo CONCLUSIONS LV systolic function is mildly reduced with EF of 45-50% Moderate left ventricular hypertrophy Left atrial dilation Mild mitral regurgitation Mild pulmonic regurgitation. IVC appears to be dilated. Plan - Aspirin, statin - Serial EKGs, serial troponins, telemetry monitoring - Heparin drip, completed 48 hours Right pleural effusion - Had a thoracentesis 11/28/2024, 1 L removed, clear yellow pleural fluid - 144 WBCs, negative for malignancy - CT chest bilateral pleural effusions, right greater than right will consider thoracentesis based on clinical progress History of atrial fibrillation? - Patient denies history of atrial fibrillation - Cardiology consulted Bradycardia, cardiology consulted History of leukemia Full code DVT prophylaxis Lovenox Plan for today, IV diuresis, monitor respiratory status closely, monitor renal function PDMP PDMP Reviewed: Not Reviewed Attestations 2 Medical Necessity Statement*: Patient requires hospitalization for acute systolic CHF exacerbation, NSTEMI Diagnoses NSTEMI (non-ST elevated myocardial infarction) I21.4 Acute exacerbation of CHF (congestive heart failure) I50.9 ASHD (arteriosclerotic heart disease) I25.10 Atrial fibrillation I48.91 Hyperlipidemia E78.5 Pleural effusion, right J90
--- NOTE | 2024-12-10 14:44 | P.PN_ITS ---
Subjective 2 Subjective: Creatinine has improved Lower extremity edema has been improved Shortness of breath is improved Vitals/I&O/Wt Last Vital Signs Temp 97.8 F 12/10/24 12:00 Pulse 64 12/10/24 12:00 Resp 13 12/10/24 12:00 BP 117/65 12/10/24 12:00 Pulse Ox 94 12/10/24 12:00 O2 Del Method Room Air 12/10/24 08:16 O2 Flow Rate 2 12/09/24 09:24 12/09/24 12/10/24 12/10/24 22:59 06:59 14:59 Intake Total 573.775 / 797.367 117.658 / 915.025 740.4 / 740.4 Output Total 1950 / 3550 1050 / 4600 1350 / 1350 Balance -1376.225 / -2752.633 -932.342 / -3684.975 -609.6 / -609.6 Weight last 48 hrs Weight 178 lb 9.191 oz Weight 203 lb 6.4 oz Physical Exam 2 Const: OTHER: GENERAL: Patient is alert, awake and oriented x3. HEART: Regular S1 and S2. No murmur, rub or gallop. LUNGS: Clear to auscultate bilaterally. CENTRAL NERVOUS SYSTEM: Grossly nonfocal. EXTREMITIES: Lower extremities with 2+ edema bilaterally. Data 12/10/24 05:50 12/10/24 05:50 A&P Assessment and plan 1. Atrial fibrillation: 2. Junctional rhythm: 3. Elevated troponin: 4. Essential hypertension: 5. ASHD (arteriosclerotic heart disease): 6. Lower extremity edema: Plan: No more dizziness No more significant bradycardia Lower extremity edema and shortness of breath is improving Continue IV diuresis since creatinine has improved Further plan be advised tomorrow hopefully he will be ready by Thursday to discharge PDMP PDMP Reviewed: Not Reviewed Attestations 2 Medical Necessity Statement*: Patient require continuation hospitalization for above defined care Coding Level of Care Code Acute Code for Chg Fwd Diagnoses Atrial fibrillation I48.91 Junctional rhythm I49.8 Elevated troponin R79.89 Essential hypertension I10 Hypertension type: essential hypertension ASHD (arteriosclerotic heart disease) I25.10 Lower extremity edema R60.0
[2024-12-10] MEDS: pantoprazole 40 mg SDV IVP (16:32)
--- NOTE | 2024-12-10 23:46 | PC.NURSE ---
Around 2100 patient up ab gustavo in hallway walking to nurses station and back. Patient complaining of constipation. Dr. Hale notified and MD to place orders.
[2024-12-11] VITALS (10 sets, daily range): BP systolic 104–140; BP diastolic 55–67; PULSE 66–76; RESP 16–20; TEMP 36.4–37.2; O2SAT 93–98
[2024-12-11 03:31] LABS: Hematocrit 33.1 % (37-53); Hemoglobin 10.70 g/dL (11.27-16.99); Mean Corpuscular HGB Conc 32.3 g/dL (30-55); Mean Corpuscular Hemoglobin 28.0 pg (27-33); Mean Corpuscular Volume 86.6 fl (82-101); Nucleated Red Blood Cells % 0 %; Platelet Count 135 10^3/cmm (157-399); Red Blood Count 3.82 10^6/uL (3.85-5.65); White Blood Count 4.88 10^3/uL (3.29-11.43)
[2024-12-11 04:02] LABS: NT Pro B Type Natriuretic Pept 10122 pg/mL (0-450)
[2024-12-11 04:21] LABS: Alanine Aminotransferase 14 U/L (0-41); Albumin Level 4.0 g/dL (3.5-5.2); Alkaline Phosphatase 82 U/L (40-130); Anion Gap 15.1 (5-19); Aspartate Amino Transferase 29 U/L (0-40); Blood Urea Nitrogen 21 mg/dL (8-23); Calcium 9.3 mg/dL (8.5-10.5); Carbon Dioxide 29 mmol/L (22-29); Chloride 90 mmol/L (98-107); Creatinine Clr Calc Pharmacy 43.9288; Globulin 2.3 g/dL (1.3-4.6); Glucose 113 mg/dL (65-115); Magnesium 1.8 mg/dL (1.7-2.3); Osmolality Calculated 274 mOsm/kg (285-295); Potassium 4.1 mmol/L (3.5-5.1); Sodium 130 mmol/L (136-145); Total Protein 6.3 g/dL (6.6-8.7)
[2024-12-11] MEDS: FUROsemide 10 mg/mL SDV 4mL 40 MG IVP ×2 (05:26→17:37)
[2024-12-11] MEDS: lactulose oral liq 20 gm/30 mL UDC 10 GM PO (05:30)
[2024-12-11] MEDS: polyethylene glycol 3350 Pkt 17 gm PO (08:33)
--- NOTE | 2024-12-11 11:14 | P.PN_ITS ---
Subjective 2 Subjective: Patient was seen this morning, he is overall getting better continues to have lower extremity edema, does complain of shortness of breath Vitals/I&O/Wt Last Vital Signs Temp 97.9 F 12/11/24 07:04 Pulse 70 12/11/24 08:00 Resp 20 H 12/11/24 08:00 BP 140/67 12/11/24 07:04 Pulse Ox 95 12/11/24 07:52 O2 Del Method Nasal Cannula 12/11/24 07:52 O2 Flow Rate 2 12/11/24 07:52 12/10/24 12/11/24 12/11/24 22:59 06:59 14:59 Intake Total 240 / 980.4 800 / 1780.4 240 / 240 Output Total 1200 / 3400 750 / 4150 525 / 525 Balance -960 / -2419.6 50 / -2369.6 -285 / -285 Weight last 48 hrs Weight 79.917 kg Weight 81 kg Physical Exam 2 Const: COMMON NORMALS: no acute distress and patient oriented x3 Resp: COMMON NORMALS: normal respiratory effort, No retractions, No use of accessory muscles and clear to auscultation bilaterally AUSCULTATION: clear to auscultation bilaterally Cardio: COMMON NORMALS: regular rate, regular rhythm, S1 normal heart sound present and S2 normal heart sound present RATE: regular rate RHYTHM: r egular rhythm HEART SOUNDS: S1 normal heart sound present and S2 normal heart sound present GI: COMMON NORMALS: Normal to inspection, nondistended, normoactive bowel sounds present and non-tender Extremity: COMMON NORMALS: no pedal edema Neuro: COMMON NORMALS: patient oriented x3 Psych: COMMON NORMALS: mental status grossly normal Data 12/11/24 03:08 12/11/24 03:08 A&P Assessment and plan 1. NSTEMI (non-ST elevated myocardial infarction): 2. Acute exacerbation of CHF (congestive heart failure): 3. ASHD (arteriosclerotic heart disease): 4. Atrial fibrillation: 5. Hyperlipidemia: 6. Pleural effusion, right: Plan: Acute systolic CHF exacerbation -BNP over 10,000, bilateral extremity pitting edema CT/CT chest wo con [id number] IMPRESSION: 1. Moderate bilateral pleural effusions, khwqy-xwkeeyr-aufk-left, with adjacent compressive atelectasis in bilateral lower lobes. Superimposed infection/aspiration difficult to exclude. 2. Mildly dilated ascending thoracic aorta measuring 4.1 cm. Recommend clinical assessment and follow-up. 3. Mildly dilated main pulmonary artery can be seen with pulmonary arterial hypertension. 4. Sub 6 mm pulmonary nodules. For patients at low risk (minimal or absent history of smoking and of other known risk factors), no routine follow-up is indicated. For patients at high risk (history of smoking or of other known risk factors), consider optional CT Chest at 12 months. (Reference: Coby) Plan --8.4 L - Urine output, monitoring - Monitor BnP - Monitor potassium - Lasix 40 IV twice daily, 1 dose of metolazone - Monitor respiratory status closely NSTEMI - With history of CAD, CABG cardiac echo CONCLUSIONS LV systolic function is mildly reduced with EF of 45-50% Moderate left ventricular hypertrophy Left atrial dilation Mild mitral regurgitation Mild pulmonic regurgitation. IVC appears to be dilated. Plan - Aspirin, statin - Serial EKGs, serial troponins, telemetry monitoring - Heparin drip, completed 48 hours Right pleural effusion - Had a thoracentesis 11/28/2024, 1 L removed, clear yellow pleural fluid - 144 WBCs, negative for malignancy - CT chest bilateral pleural effusions, right greater than right will consider thoracentesis based on clinical progress History of atrial fibrillation? - Patient denies history of atrial fibrillation - Cardiology consulted Bradycardia, cardiology consulted History of leukemia Full code DVT prophylaxis Lovenox Plan for today, IV diuresis, monitor respiratory status closely, monitor renal function PDMP PDMP Reviewed: Not Reviewed Attestations 2 Medical Necessity Statement*: Patient requires hospitalization for CHF, fluid overload, NSTEMI Diagnoses NSTEMI (non-ST elevated myocardial infarction) I21.4 Acute exacerbation of CHF (congestive heart failure) I50.9 ASHD (arteriosclerotic heart disease) I25.10 Atrial fibrillation I48.91 Hyperlipidemia E78.5 Pleural effusion, right J90
[2024-12-11] MEDS: pantoprazole 40 mg SDV IVP (17:37)
--- NOTE | 2024-12-11 18:08 | PM.PN ---
Subjective Subjective: Continue to improve Still has some lower extremity edema most likely secondary to venous insufficiency as well Vitals/I&O/Wt Last Vital Signs Temp 99.0 F 12/11/24 16:00 Pulse 72 12/11/24 16:00 Resp 18 12/11/24 16:00 BP 128/64 12/11/24 16:00 Pulse Ox 93 12/11/24 16:00 O2 Del Method Room Air 12/11/24 16:00 O2 Flow Rate 2 12/11/24 11:45 12/11/24 12/11/24 12/11/24 06:59 14:59 22:59 Intake Total 800 / 1780.4 480 / 480 Output Total 750 / 4150 1125 / 1125 400 / 1525 Balance 50 / -2369.6 -645 / -645 -400 / -1045 Weight last 48 hrs Weight 176 lb 3 oz Weight 178 lb 9.191 oz Physical Exam Const: OTHER: GENERAL: Patient is alert, awake and oriented x3. HEART: Regular S1 and S2. No murmur, rub or gallop. LUNGS: Clear to auscultate bilaterally. CENTRAL NERVOUS SYSTEM: Grossly nonfocal. EXTREMITIES: Lower extremities with 2+ edema bilaterally. Data 12/11/24 03:08 12/11/24 03:08 A&P Assessment and plan 1. Atrial fibrillation: 2. Junctional rhythm: 3. Elevated troponin: 4. Essential hypertension: 5. ASHD (arteriosclerotic heart disease): 6. Lower extremity edema: Plan: No more dizziness No more significant bradycardia Lower extremity edema and shortness of breath is improving Continue IV diuresis switch to p.o. diuretics from tomorrow Use compression stocks Possible discharge tomorrow PDMP PDMP Reviewed: Not Reviewed Attestations Medical Necessity Statement*: Patient require continuation hospitalization for above defined care. Coding Level of Care Code Acute Code for [facility] Fwd Diagnoses Atrial fibrillation I48.91 Junctional rhythm I49.8 Elevated troponin R79.89 Essential hypertension I10 Hypertension type: essential hypertension ASHD (arteriosclerotic heart disease) I25.10 Lower extremity edema R60.0
[2024-12-12 04:00] VITALS: BP 119/66; PULSE 70; RESP 16; TEMP 36.8; O2SAT 93
[2024-12-12 04:32] LABS: Hematocrit 32.9 % (37-53); Hemoglobin 11.00 g/dL (11.27-16.99); Mean Corpuscular HGB Conc 33.4 g/dL (30-55); Mean Corpuscular Hemoglobin 28.6 pg (27-33); Mean Corpuscular Volume 85.7 fl (82-101); Nucleated Red Blood Cells % 0 %; Platelet Count 147 10^3/cmm (157-399); Red Blood Count 3.84 10^6/uL (3.85-5.65); White Blood Count 4.61 10^3/uL (3.29-11.43)
[2024-12-12 05:14] LABS: Anion Gap 13.0 (5-19); Blood Urea Nitrogen 24 mg/dL (8-23); Calcium 9.6 mg/dL (8.5-10.5); Carbon Dioxide 33 mmol/L (22-29); Chloride 88 mmol/L (98-107); Creatinine Clr Calc Pharmacy 37.8591; Glucose 86 mg/dL (65-115); Osmolality Calculated 273 mOsm/kg (285-295); Potassium 4.0 mmol/L (3.5-5.1); Sodium 130 mmol/L (136-145)
[2024-12-12] MEDS: FUROsemide 10 mg/mL SDV 4mL 40 MG IVP (06:34)
[2024-12-12] MEDS: polyethylene glycol 3350 Pkt 17 gm PO (07:32)
[2024-12-12 08:00] VITALS: BP 100/52; PULSE 86; RESP 20; TEMP 36.7; O2SAT 92
--- NOTE | 2024-12-12 08:37 | P.DS_ITS ---
Discharge Providers Date of Admission: 12/07/24 12:35 Date of Discharge: December 12, 2024 Attending Provider at Admission: Juan Bo MD Attending Provider at Discharge: Dari Crane MD Consults: Cardiology, Dr. Palma Primary Care Provider: Serenity Gamez MD Diagnoses at Discharge Discharge Diagnosis 1. Atrial fibrillation: 2. Junctional rhythm: 3. Elevated troponin: 4. Essential hypertension: 5. ASHD (arteriosclerotic heart disease): 6. Lower extremity edema: Reason for Visit Reason for Visit: dr cabrales, fluid on lungs Hospital Course Hospital Course 89 year old male with a past medical history of atrial fibrillation Hypertension, CHF, CAD, history of CABG, recent thoracentesis cytology benign, who presented to the ER from from pulmonary clinic for complaints of shortness of breath. increased shortness of breath over the last few months, increase lower extremity edema, abdominal edema, weight gain, orthopnea, paroxysmal nocturnal dyspnea. He was admitted in view of Acute systolic CHF exacerbation. Received treatment with Lasix 40 IV twice daily. Non contrast CT chest showed Moderate bilateral pleural effusions, urzvv-fmlmrjz-fyqp-left, with adjacent c ompressive atelectasis in bilateral lower lobes.Echo showed LV systolic function is mildly reduced with EF of 45-50%, IVC appears to be dilated. EF reduced from 57% previosuly. Hospital course notable for bradycardic heart rates at night as low as 37 bpm, however is asymptomatic. Troponin series: 120-> 117-> 106. Beta blockers were held. Trop elevation likely 2/2 CHF exacerbation. Cr at 1.5 today. He is net negative 10L on current admission. Urine output 2900 cc last 24 hrs. Ischemic evaluation to be pursued as outpatient. Physical Exam Narrative: General: No acute distress, AO x3 HEENT: PERRLA, pupils bilaterally equal and reactive, pallors not present Chest: Normal vesicular breath sounds, no added sounds, equal good air entry bilaterally CVS: S1-S2 regular, no murmurs, no tachycardia, no gallops, no rubs Abdomen: Soft, nontender, no organomegaly, bowel sounds present Neuro: No focal deficits, no facial deformity, AO x3, power 5/5 in all limbs Discharge Data Studies Completed and Pending Completed Studies During Hospitalization Category Date Time Status CT chest [facility] [id number] Routine Cat Scan 12/07/24 15:10 Completed XR chest 1V portable [id number] Stat Exams 12/07/24 10:20 Completed CV. echo complete* [id number] Stat Ultrasound 12/07/24 12:38 Completed Pending at discharge Category Date Time Status Basic Metabolic Panel AM LABS Lab 12/13/24 04:00 Ordered Basic Metabolic Panel AM LABS Lab 12/14/24 04:00 Ordered Complete Blood Count w/Auto AM LABS Lab 12/13/24 04:00 Ordered Complete Blood Count w/Auto AM LABS Lab 12/14/24 04:00 Ordered Radiology Impressions Chest X-Ray 12/07/24 10:20 Impression: 1. Small bilateral pleural effusions unchanged. 2. Atherosclerosis and cardiomegaly. Chest CT 12/07/24 15:10 IMPRESSION: 1. Moderate bilateral pleural effusions, gcfgk-jhehuoi-wibg-left, with adjacent compressive atelectasis in bilateral lower lobes. Superimposed infection/aspiration difficult to exclude. 2. Mildly dilated ascending thoracic aorta measuring 4.1 cm. Recommend clinical assessment and follow-up. 3. Mildly dilated main pulmonary artery can be seen with pulmonary arterial hypertension. 4. Sub 6 mm pulmonary nodules. For patients at low risk (minimal or absent history of smoking and of other known risk factors), no routine follow-up is indicated. For patients at high risk (history of smoking or of other known risk factors), consider optional CT Chest at 12 months. (Reference: Coby) REFERENCES: Coby Zavala, et al. Guidelines for Management of Incidental Pulmonary Nodules Detected on CT Images: From the Fleischner Society 2017. Radiology. 2017;284(1):228-243. Laboratory Results WBC 4.61 10^3/uL (3.29-11.43) 12/12/24 02:00 RBC 3.84 10^6/uL (3.85-5.65) L 12/12/24 02:00 Hgb 11.00 g/dL (11.27-16.99) L 12/12/24 02:00 Hct 32.9 % (37-53) L 12/12/24 02:00 MCV 85.7 fl (82-101) 12/12/24 02:00 MCH 28.6 pg (27-33) 12/12/24 02:00 MCHC 33.4 g/dL (30-55) 12/12/24 02:00 RDW 15.6 % (12.1-15.1) H 12/12/24 02:00 Plt Count 147 10^3/cmm (157-399) L 12/12/24 02:00 MPV 9.9 fL (7.4-10.4) 12/12/24 02:00 Neut % (Auto) 62.5 % 12/12/24 02:00 Lymph % (Auto) 21.3 % 12/12/24 02:00 Howard % (Auto) 12.8 % 12/12/24 02:00 Eos % (Auto) 3.0 % 12/12/24 02:00 Baso % (Auto) 0.2 % 12/12/24 02:00 Neut # (Auto) 2.88 10^3/uL (1.8-7.7) 12/12/24 02:00 Lymph # (Auto) 1.0 10^3/uL (0.8-4.8) 12/12/24 02:00 Howard # (Auto) 0.6 10^3/uL (0.2-0.9) 12/12/24 02:00 Eos # (Auto) 0.1 10^3/uL (0.0-0.8) 12/12/24 02:00 Baso # (Auto) 0.0 10^3/uL (0.0-0.1) 12/12/24 02:00 Nucleated RBC % (auto) 0 % 12/12/24 02:00 Nucleated RBCs # 0.0 /100WBC 12/12/24 02:00 PT 16.30 SECONDS (12.1-14.9) H 12/07/24 18:59 INR 1.23 (0.8-1.2) H 12/07/24 18:59 APTT 32.2 SECONDS (23.9-36.7) D 12/10/24 11:38 Sodium 130 mmol/L (136-145) L 12/12/24 02:03 Potassium 4.0 mmol/L (3.5-5.1) 12/12/24 02:03 Chloride 88 mmol/L (98-107) L 12/12/24 02:03 Carbon Dioxide 33 mmol/L (22-29) H 12/12/24 02:03 Anion Gap 13.0 (5-19) 12/12/24 02:03 BUN 24 mg/dL (8-23) H 12/12/24 02:03 Creatinine 1.5 mg/dL (0.7-1.2) H 12/12/24 02:03 GFR Calculation Not Reportable 12/12/24 02:03 Glucose 86 mg/dL (65-115) 12/12/24 02:03 Estimat Average Glucose 123 12/07/24 10:34 Hemoglobin A1c 5.9 % (4.0-6.0) 12/07/24 10:34 Calculated Osmolality 273 mOsm/kg (285-295) L 12/12/24 02:03 Calcium 9.6 mg/dL (8.5-10.5) 12/12/24 02:03 Phosphorus 4.1 mg/dL (2.5-4.5) 12/11/24 03:08 Magnesium 1.8 mg/dL (1.7-2.3) 12/11/24 03:08 Total Bilirubin 1.0 mg/dL (0.15-1.2) 12/11/24 03:08 AST 29 U/L (0-40) 12/11/24 03:08 ALT 14 U/L (0-41) 12/11/24 03:08 Alkaline Phosphatase 82 U/L (40-130) 12/11/24 03:08 Troponin T Baseline 120 ng/L (0-15) H* 12/07/24 10:34 Troponin T 120 Minute 117.3 ng/L (0-15) H 12/07/24 12:28 Delta Troponin T -2.7 ABS# (0-10) L 12/07/24 12:28 Troponin T Hi Sens 6Hr 106.1 ng/L (0-15) H 12/07/24 17:00 Troponin T Hi Sens 6Hr Delta -13.9 ng/L (0-12) L 12/07/24 17:00 NT-Pro-B Natriuret Pep 45679 pg/mL (0-450) H 12/11/24 03:08 Total Protein 6.3 g/dL (6.6-8.7) L 12/11/24 03:08 Albumin 4.0 g/dL (3.5-5.2) 12/11/24 03:08 Globulin 2.3 g/dL (1.3-4.6) 12/11/24 03:08 Triglycerides 91 mg/dL (0-150) 12/07/24 12: Cholesterol 118 mg/dL (0-200) 12/07/24 12: LDL Cholesterol, Calc 55 mg/dL (50-129) 12/07/24 12: HDL Cholesterol 45 mg/dL (60-100) L 12/07/24 12: LDL/HDL Ratio 1.22 RATIO (0.00-3.22) 12/07/24 12: Cholesterol/HDL Ratio 2.62 mg/dL (1.0-5.00) 12/07/24 12: TSH 3.93 uIU/mL (0.27-4.20) 12/07/24 17:00 Urine Color Yellow (Yellow) 12/07/24 15:20 Urine Appearance Cloudy (CLEAR) A 12/07/24 15:20 Urine pH 7.0 (5-7) 12/07/24 15:20 Ur Specific [place] 1.007 (1.005-1.030) 12/07/24 15:20 Urine Protein Negative (Negative) 12/07/24 15:20 Urine Glucose (UA) Negative (Normal) 12/07/24 15:20 Urine Ketones Negative (Negative) 12/07/24 15:20 Urine Blood Negative (Negative) 12/07/24 15:20 Urine Nitrate Negative (Negative) 12/07/24 15:20 Urine Bilirubin Negative (Negative) 12/07/24 15:20 Urine Urobilinogen 1.0 mg/dL (Negative) 12/07/24 15:20 Ur Leukocyte Esterase Negative (Negative) 12/07/24 15:20 Urine RBC 0-2 /hpf (0-2) 12/07/24 15:20 Urine WBC 0-5 /hpf (0-5) 12/07/24 15:20 Ur Squamous Epith Cells 0-5 /hpf (0-5) 12/07/24 15:20 Amorphous Sediment Not Reportable 12/07/24 15:20 Urine Bacteria None seen /hpf (NONE) 12/07/24 15:20 Hyaline Casts 0.81 /lpf 12/07/24 15:20 Vitals Last Vital Signs Temp 98.0 F 12/12/24 08:00 Pulse 86 12/12/24 08:00 Resp 20 H 12/12/24 08:00 BP 100/52 12/12/24 08:00 Pulse Ox 92 12/12/24 08:00 O2 Del Method Room Air 12/12/24 04:00 O2 Flow Rate 2 12/11/24 11:45 Discharge Plan Discharge Patient Disposition: Home Condition: Stable Prescriptions: New aspirin 81 mg Tablet,Delayed Release (Dr/Ec) 81 mg PO DAILY 30 Days Qty: 30 0RF furosemide [Lasix] 40 mg tablet 40 mg PO DAILY Qty: 30 0RF furosemide [Lasix] 20 mg tablet 20 mg PO QPM Qty: 30 0RF potassium chloride 20 mEq packet 20 meq PO DAILY Qty: 30 0RF Continued isosorbide dinitrate 20 mg tablet 20 mg PO BID potassium chloride 20 mEq tablet extended release 20 meq PO BID Qty: 60 0RF levothyroxine 75 mcg Tablet 75 mcg PO DAILY rosuvastatin 40 mg tablet 20 mg PO DAILY Discontinued amlodipine 5 mg tablet 5 mg PO DAILY atenolol 100 mg tablet 100 mg PO DAILY Qty: 90 0RF furosemide [Lasix] 40 mg Tablet 40 mg PO QAM Discharge Order = DC NOW: Discharge Order (Routine); Ordered 12/12/24 Ordered By: Dari Crane Other Ambulatory Orders: Comprehensive Metabolic Panel (Routine) Timeframe: 3 Days Facility: [facility] - Location: Lab - Main Lab Ordered By: Drai Crane Referrals: Serenity Gamez MD [Primary Care Provider, Family Practice] - 12/21/24 2:00 pm Olivia Escalante FNP [Nurse Practitioner, Cardiology] - 12/27/24 4:00 pm Discharge Activity: Resume usual activity Patient Instructions: Furosemide (By mouth), Potassium Chloride (By mouth), Aspirin (By mouth), Heart Failure (DC), CHF Stoplight, Opioid Safety, Patient Portal & Irma Instructions Discharge Attestations Time Spent in Discharge Care*: greater than 30 min Quality Metrics Clinical Quality Measures [ No reported AMI, CVA or VTE this stay] Coding Level of Care Code Acute Code for Chg Fwd Diagnoses Atrial fibrillation I48.91 Junctional rhythm I49.8 Elevated troponin R79.89 Essential hypertension I10 Hypertension type: essential hypertension ASHD (arteriosclerotic heart disease) I25.10 Lower extremity edema R60.0
[2024-12-12 09:31] VITALS: PULSE 69; RESP 20; O2SAT 92
[2024-12-12 09:59] VITALS: O2SAT 92; O2SAT 93
--- NOTE | 2024-12-12 10:01 | P.PN_ITS ---
<Statement entered by Rishabh Palma MD - 12/13/24 19:52> Patient was evaluated and cared for in conjunction with an advanced practice practitioner. I personally have not examined the patient today but reviewed the chart and all pertinent data including imaging, telemetry, and laboratory results. I discussed the patient in detail with the advanced practice practitioner. Please see their note for complete H&P testing result and agreed upon plan of care for the patient. Subjective 2 Subjective: Has done well overnight, no chest pain or shortness of breath. Lower extremity edema is improving. Vitals/I&O/Wt Last Vital Signs Temp 98.0 F 12/12/24 08:00 Pulse 69 12/12/24 09:31 Resp 20 H 12/12/24 09:31 BP 100/52 12/12/24 08:00 Pulse Ox 92 12/12/24 09:59 O2 Del Method Room Air 12/12/24 09:31 O2 Flow Rate 2 12/11/24 11:45 12/11/24 12/12/24 12/12/24 22:59 06:59 14:59 Intake Total 240 / 720 600 / 600 Output Total 850 / 3150 1175 / 3150 300 / 300 Balance -610 / -2430 -1175 / -2430 300 / 300 Weight last 48 hrs Weight 169 lb 4.8 oz Weight 176 lb 3 oz Physical Exam 2 Const: COMMON NORMALS: no acute distress and patient oriented x3 GENERAL APPEARANCE: cooperative and comfortable ORIENTATION/CONSCIOUSNESS: Yes awake, Yes oriented to person, Yes oriented to place and Yes oriented to time Chest: COMMONS NORMALS: normal inspection of the chest and normal palpation of entire chest wall CHEST: Yes Symmetrical chest wall rise Resp: COMMON NORMALS: normal respiratory effort, No retractions, No use of accessory muscles and clear to auscultation bilaterally EFFORT & INSPECTION: Yes symmetric chest movement AUSCULTATION: clear to auscultation bilaterally Cardio: COMMON NORMALS: regular rate, regular rhythm, S1 normal heart sound present, S2 normal heart sound present, No gallops present (Cardio), No clicks present (Cardio), No murmurs present (Cardio) and No rub (Cardio) RATE: r egular rate RHYTHM: regular rhythm HEART SOUNDS: S1 normal heart sound present and S2 normal heart sound present PERIPHERAL PULSES: radial pulses present Extremity: GENERAL: Yes edema (1-2+ pitting edema bilateral lower extremity below the knee) Neuro: COMMON NORMALS: patient oriented x3 and moves all extremities S ENSORIUM/ORIENTATION: Yes oriented to person, Yes oriented to place and Yes oriented to time Data 12/12/24 02:00 12/12/24 02:03 A&P Assessment and plan 1. Atrial fibrillation: 2. Junctional rhythm: 3. Elevated troponin: 4. HTN (hypertension): 5. ASHD (arteriosclerotic heart disease): 6. Lower extremity edema: Plan: Bradycardia has resolved. Will plan to discharge home today if okay with hospitalist service. Switching to oral diuretics Lasix 40 mg in the morning and 20 mg at 2 PM, potassium 20 mEq daily. Creatinine 1.5 today, will not start Entresto currently, may consider as an outpatient depending on follow-up labs. Follow-up with cardiology clinic in 7 to 10 days. PDMP PDMP Reviewed: Not Reviewed Attestations 2 Medical Necessity Statement*: Probable discharge home Coding Level of Care Code Acute Code for [facility] Fwd Diagnoses Atrial fibrillation I48.91 Junctional rhythm I49.8 Elevated troponin R79.89 HTN (hypertension) I10 ASHD (arteriosclerotic heart disease) I25.10 Lower extremity edema R60.0
--- NOTE | 2024-12-12 10:47 | PC.NURSE ---
Patient discharged to home. Instruction provided regarding follow up appointments and new medications with changes. Patient verbalized understanding. New Rx transmitted to [facility]. Highlighted information on discharge paperwork. Patient requested to wait in surgical services for his son to pick him up. Patient taken by wheelchair to surgical services.
[2024-12-12 10:49] VITALS: BP 100/52; PULSE 69; RESP 20; O2SAT 93
--- NOTE | 2024-12-12 10:54 | PC.SOCIAL ---
IMM Update pg 2 of IMM Updated and reviewed w/ patient. Copy provided and copy dated, initialed and placed in chart.
== END 2024-12-12 10:45 | disposition home or self-care (01) | DRG 280 ==
LOC: ER 11:57 → CSU 14:13
PROVIDERS: Emergency Medicine; Internal Medicine; Internal Medicine Cardiovascular Disease; Admitting Provider Family Medicine; Emergency Provider Emergency Medicine; PCP Family Medicine; Visit Provider Student in an Organized Health Care Education/Training Program
DX: I11.0 Hypertensive heart disease with heart failure (principal); I50.23 Acute on chronic systolic (congestive) heart failure; I21.A1 Myocardial infarction type 2; R18.8 Other ascites; I48.91 Unspecified atrial fibrillation; I25.10 Atherosclerotic heart disease of native coronary artery without angina pectoris; E78.5 Hyperlipidemia, unspecified; I45.10 Unspecified right bundle-branch block; E87.5 Hyperkalemia; Z95.1 Presence of aortocoronary bypass graft; Z87.891 Personal history of nicotine dependence; Z85.6 Personal history of leukemia; Z82.49 Family history of ischemic heart disease and other diseases of the circulatory system
CPT/HCPCS: 36415; 71045; 71250; 80048; 80053; 80061; 81001; 83036; 83735; 83880; 84100; 84443; 84484; 85025; 85610; 85730; 93005; 93306; 94664; 94760; 96365; 96372; 96375; 99285; J1644; J1650; J1938; J2270; J2470; J9999

== ENCOUNTER → 2024-12-27 15:32 | Outpatient (BNVA) | payer OTHER, SELFPAY | PROVIDERS: PCP Family Medicine; Visit Provider Internal Medicine Cardiovascular Disease | DX: I48.91 Unspecified atrial fibrillation (principal); I10 Essential (primary) hypertension; I25.10 Atherosclerotic heart disease of native coronary artery without angina pectoris; R60.0 Localized edema; R26.89 Other abnormalities of gait and mobility | CPT/HCPCS: 99214 ==

== ENCOUNTER 2025-01-10 09:35 | Emergency (ER) | payer OTHER, SELFPAY ==
[2025-01-10 09:42] VITALS: BP 164/88; PULSE 82; RESP 20; TEMP 36.5; O2SAT 94; BMI 26.4
--- NOTE | 2025-01-10 09:50 | ECG_ITS ---
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 Measurements Intervals [place] Rate: 75 P: 0 ME: 0 QRS: 245 QRSD: 146 T: 60 QT: 446 QTc: 498 Interpretive Statements Atrial fibrillation with a controlled ventricular response rate RIGHT AXIS DEVIATION [QRS AXIS > 100] RIGHT BUNDLE BRANCH BLOCK [120+ ms QRS DURATION, UPRIGHT V1, 40+ ms S IN I/aVL/V4/V5/V6] INFERIOR MYOCARDIAL INFARCTION , OF INDETERMINATE AGE [40+ ms Q WAVE AND/OR ST/T ABNORMALITY IN II/aVF].ANTEROSEPTAL MYOCARDIAL INFARCTION , OF INDETERMINATE AGE [40+ ms Q WAVE IN V1-V4] Compared to ECG 12/08/2024 08:52:46 Ventricular premature complex(es) now present.Aberrant conduction of supraventricular beat(s) now present.Right-axis deviation now present Right bundle-branch block now present.Myocardial infarct finding now present Electronically Signed On 01-10-2025 17:49:41 CDT by Ronald Pedroza M.D. [id number]
--- OUTSIDE RECORDS SUMMARY | 2025-01-10 10:34 | XMS_ITS | Encounter Summary ---
Author Organization [facility] Address [address] [place] [address] Care Team Providers Care Mud Engineer Name Role Phone Mauricio Ivy MD Primary Care Provider [phone] Encounter Details Date Type Department Care Team (Latest Contact Info) Description 01/15/2000 Outpatient Historical [facility] Cardiology- [place] [address] [place] [address] Mauricio Ivy MD [address] [place] [address] Other and unspecified angina pectoris (Primary Dx); Coronary atherosclerosis of [place] coronary artery Social History Tobacco Use Types Packs/Day Years Used Date Smoking Tobacco: Never Assessed Sex and Gender Information Value Date Recorded Sex Assigned at Not on file 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
--- OUTSIDE RECORDS SUMMARY | 2025-01-10 10:34 | XMS_ITS | Clinical Summary ---
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
--- OUTSIDE RECORDS SUMMARY | 2025-01-10 10:34 | XMS_ITS | Encounter Summary ---
Author Organization [facility] Address [address] [place] [address] Care Team Providers Care Fashion Buying Internship Name Role Phone Mauricio Ivy MD Primary Care Provider [phone] Encounter Details Date Type Department Care Team (Latest Contact Info) Description 12/07/2006 Outpatient Historical [facility] Cardiology- [place] [address] [place] [address] Vane Sun, STRIPPING SHOVEL OILER [address] [place] [address] Coronary Atherosclerosis of [place] Coronary Artery (Primary Dx); Unspecified Essential Hypertension; Unspecified Chest Pain; Other and Unspecified Hyperlipidemia Social History Tobacco Use Types Packs/Day Years Used Date Smoking Tobacco: Never Assessed Sex and Gender Information Value Date Recorded Sex Assigned at Not on file Legal Sex Male 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 AM NURSE EXTERN Gender Identity Not on file Sexual Orientation Not on file documented as of this encounter Plan of Treatment Not on file documented as of this encounter Visit Diagnoses Diagnosis 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
--- OUTSIDE RECORDS SUMMARY | 2025-01-10 10:34 | XMS_ITS | Encounter Summary ---
Author Organization [facility] Address [address] [place] [address] Care Team Providers Care Coil Spring Assembler Name Role Phone Mauricio Ivy MD Primary Care Provider [phone] Encounter Details Date Type Department Care Team (Latest Contact Info) Description 01/28/2007 Outpatient Historical [facility] Cardiology Ancillary Services[place] [address] [place] [address] Eduar Santoro MD [address] [place] [address] Coronary Atherosclerosis of [place] Coronary Artery (Primary Dx); Unspecified Chest Pain Social History Tobacco Use Types Packs/Day Years Used Date Smoking Tobacco: Never Assessed Sex and Gender Information Value Date Recorded Sex Assigned at Not on file Legal 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
--- OUTSIDE RECORDS SUMMARY | 2025-01-10 10:34 | XMS_ITS | Encounter Summary ---
Author Organization [facility] [employer] Address [address] [place] [address] Care Team Providers Care Executive Search Consultant Name Role Phone Mauricio Ivy MD Primary Care Provider [phone] Encounter Details Date Type Department Care Team (Late st Contact Info) Description 01/15/2006 Inpatient Historical [facility] Mauricio Ivy MD [address] [facility] [address] [place] [address] Coronary Atherosclerosis of [place] Coronary Artery (Primary Dx) Social History Tobacco Use Types Packs/Day Years Used Date Smoking Tobacco: Never Assessed Sex and Gender Information Value Date Recorded Sex Assigned at Not on file Legal Sex Male 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 TESTER Gender Identity Not on file Sexual Orientation [...] TESTING Final R esult Performing Organization Address [facility] Co de Phone Number INTERFACE SYSTEM Refer to clinic/hospital department * (ABNORMAL) POC ACTIVATED CLOTTING TIME (01/15/2006 4:49 PM CDT) [facility] ACT POC 188(H) 79 - 149 sec INTERFACE SYSTEM 01/15/2006 4:49 PM CDT Mauricio Ivy MD POINT OF CARE TESTING Final R ult Performing Organization Address [facility] de Phone Number INTERFACE SYSTEM Refer to clinic/hospital department * (ABNORMAL) CBC WITHOUT DIFFERENTIAL (01/15/2006 9:32 AM CDT) [facility] WBC 6.1 4.8 - 10.8 K/ul INTERFACE [...] ORDERABLES Final R esult Performing Organization Address [facility] de Phone Number INTERFACE SYSTEM [...] Goal INR 3.0; range 2.5 - 3.5 POST-IN Goal INR 2.5; range 2.0 - 3.0 [...] ORDERABLES Final R esult Performing Organization Address City/[facility]/ZIP Co de Phone Number INTERFACE SYSTEM [...] encounter Visit Diagnoses Diagnosis 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
--- OUTSIDE RECORDS SUMMARY | 2025-01-10 10:34 | XMS_ITS | Encounter Summary ---
Author Organization [facility] Address [address] [place] [address] Care Team Providers Care Specialty Development Consultant Name Role Phone Mauricio Ivy MD Primary Care Provider [phone] Encounter Details Date Type Department Care Team (Latest Contact Info) Description 02/16/2006 Outpatient Historical [facility] Cardiology- [place] [address] [place] [address] Vane Sun, JAVA WEB DEVELOPER [address] [place] [address] Coronary Atherosclerosis of [place] Coronary Artery (Primary Dx); Unspecified Essential Hypertension; Other and Unspecified Hyperlipidemia Social History Tobacco Use Types Packs/Day Years Used Date Smoking Tobacco: Never Assessed Sex and Gender Information Value Date Recorded Sex Assigned at Not on file Legal Sex Male 6: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
--- OUTSIDE RECORDS SUMMARY | 2025-01-10 10:34 | XMS_ITS | Encounter Summary ---
Author Organization [facility] Address [address] [facility] Attn: [place] [address] Care Team Providers Care Parts And Service Manager Name Role Phone Mauricio Ivy MD Primary Care Provider [phone] Encounter Details Date Type Department Care Team (Late st Contact Info) Description 12/23/2001 Outpatient Historical Mauricio Ivy MD [address] [place] [address] Social History Tobacco Use Types Packs/Day Years Used Date Smoking Tobacco: Never Assessed Sex and Gender Information Value Date Recorded Sex Assigned at Not on file Legal Sex Male 6:04 AM STEP FINISHER Gender Identity Not on file Sexual Orientation Not on file documented as of this encounter Plan of Treatment Not on file documented as of this encounter Visit Diagnoses Not on filedocumented in this encounter Care Teams Parts And Service Manager Relationship Specialty Start Date End Date Mauricio Ivy MD [address] [place] [address] PCP - General 01/15/06 documented as of this encounter
--- OUTSIDE RECORDS SUMMARY | 2025-01-10 10:34 | XMS_ITS | Encounter Summary ---
Author Organization [facility] Address [address] [place] [address] Care Team Providers Care Spinner Frame Name Role Phone Mauricio Ivy MD Primary Care Provider Encounter Details Date Type Department Care Team (Latest Contact Info) Description 02/16/2006 Outpatient Historical [facility] Cardiology Ancillary Services-[place] [address] [place] [address] Deep Nye MD NO ADDRESS ON FILE Coronary Atherosclerosis of [place] Coronary Artery (Primary Dx); Unspecified Chest Pain Social History Tobacco Use Types Packs/Day Years Used Date Smoking Tobacco: Never Assessed Sex and Gender Information Value Date Recorded Sex Assigned at Not on file Legal Sex Male 6:04 AM SPOTTER Gender Identity Not on file Sexual Orientation Not on file documented as of this encounter Plan of Treatment Not on file documented as of this encounter Visit Diagnoses Diagnosis 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
--- OUTSIDE RECORDS SUMMARY | 2025-01-10 10:34 | XMS_ITS | Encounter Summary ---
Author Organization [facility] Address [address] [facility] Attn: [place] [address] Care Team Providers Care Lighting Designer Name Role Phone Mauricio Ivy MD Primary Care Provider [phone] Encounter Details Date Type Department Care Team (Late st Contact Info) Description 02/06/2000 Outpatient Historical Mauricio Ivy MD [address] [place] [address] Social History Tobacco Use Types Packs/Day Years Used Date Smoking Tobacco: Never Assessed Sex and Gender Information Value Date Recorded Sex Assigned at Not on file Legal Sex Male 6:04 AM CRIMINAL RESEARCH SPECIALIST Gender Identity Not on file Sexual Orientation Not on file documented as of this encounter Plan of Treatment Not on file documented as of this encounter Visit Diagnoses Not on filedocumented in this encounter Care Teams Lighting Designer Relationship Specialty Start Date End Date Mauricio Ivy MD [address] [place] [address] PCP - General 01/15/06 documented as of this encounter
[2025-01-10 10:55] VITALS: O2SAT 95
--- NOTE | 2025-01-10 11:01 | ED_ITS ---
HPI - SOB/Dyspnea 2 General: Chief Complaint: Shortness of Breath/Dyspnea Stated Complaint: va sent, fluid build up Time Seen by Provider: 01/10/25 09:47 History of Present Illness: HPI Narrative: 89-year-old male presents to the emergen cy room concerned about swelling in his legs. He had a [facility] done [facility] they told him he had fluid on his lungs he is interested in having a thoracentesis. He does not have any orthopnea no chest pain Associated symptoms: Deny abdominal pain, chest pain or fever(s) Related Data Home Medications ?Medication ?Instructions ?Recorded ?Confirmed levothyroxine 75 mcg tablet 75 mcg PO DAILY 11/28/24 0 01/12/25 rosuvastatin 40 mg tablet 20 mg PO DAILY 11/28/2412/26 aspirin 81 mg tablet,delayed 81 mg PO DAILY 01/12/25 0 01/12/25 release furosemide 20 mg tablet (Lasix) 20 mg PO BID 01/12/25 01/12/25 Previous Rx's ?Medication ?Instructions ?Recorded potassium chloride 20 mEq oral 20 meq PO DAILY #30 ea 12/12/24 packet Allergies Allergy/AdvReac Type Severity Reaction Status Date / Time No Known Allergies Allergy Verified 12/27/24 16:28 Review of Systems 2 Const: Denies: fever(s) or chills Card: Denies: chest pain Resp: Denies: dyspnea GI: Denies: abdominal pain : Denies: dysuria, urinary frequency or urinary urgency Musc: Denies: neck pain or back pain Skin/Breast: Denies: rash PFSH ED 2 PFSH: Medical History History of leukemia Balance disorder Hyperlipidemia HTN (hypertension) ASHD (arteriosclerotic heart disease) Surgical History 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 Family History Father Congestive heart failure (CHF) Hypertension Mother CAD (coronary artery disease) Hypertension Social History Smoking and tobacco/nicotine status: former use of tobacco/nicotine Physical Exam 2 Const: GENERAL APPEARANCE: cooperative ORIENTATION/CONSCIOUSNESS: Yes awake, Yes oriented to person, Yes oriented to place and Yes oriented to time HENMT: COMMON NORMALS: normocephalic, atraumatic and hearing grossly normal bilaterally HEAD & SCALP: normocephalic and atraumatic Resp: COMMON NORMALS: normal respiratory effort, No retractions, No use of accessory muscles and clear to auscultation bilaterally AUSCULTATION: clear to auscultation bilaterally Cardio: COMMON NORMALS: regular rate, regular rhythm and No murmurs present (Cardio) RATE: regular rate RHYTHM: regular rhythm GI: COMMON NORMALS: Soft to palpation and No hepatosplenomegaly present A USCULTATION: Yes normoactive bowel sounds PALPATION: Yes Soft to palpation, No Tenderness to palpation present (GI), No Guarding due to palpation present (GI) and Yes No hepatosplenomegaly present Extremity: COMMON NORMALS: normal to inspection, capillary refill normal, no clubbing, cyanosis or edema, no calf tenderness and no pedal edema Neuro: SENSORIUM/ORIENTATION: Yes oriented to person, Yes oriented to place and Yes oriented to time Skin: COMMON NORMALS: no rashes or lesions noted GENERAL SKIN EXAM: no rashes or lesions noted Course 2 Vital Signs: Vital signs: Vital Signs Temperature 97.7 F 01/10/25 09:42 Pulse Rate 57 L 01/10/25 11:32 Respiratory Rate 18 01/10/25 11:32 Blood Pressure 169/89 01/10/25 12:30 Pulse Oximetry 90 01/10/25 12:30 Oxygen Delivery Me thod Room Air 01/10/25 12:03 MDM - SOB/Dyspnea Medical Decision Making Chest x-ray shows right pleural effusion. Patient is anxious wants to go home we will set him up for outpatient thoracentesis per his request he is stable at this time otherwise. Follow-up as planned with his primary care doctor Medical Records I reviewed the patient's medical records. Lab Data I reviewed the patient's lab results. 01/10/25 11:32 01/10/25 11:32 Labs/Radiology: Radiology Impressions Chest X-Ray 01/10/25 12:28 IMPRESSION: Progression of right pleural effusion and right lower lobe atelectasis compared to the previous examination as above. Laboratory Results WBC 5.34 10^3/uL (3.29-11.43) 01/10/25 11:32 RBC 4.29 10^6/uL (3.85-5.65) 01/10/25 11:32 Hgb 12.00 g/dL (11.27-16.99) 01/10/25 11:32 Hct 36.9 % (37-53) L 01/10/25 11:32 MCV 86.0 fl (82-101) 01/10/25 11:32 MCH 28.0 pg (27-33) 01/10/25 11:32 MCHC 32.5 g/dL (30-55) 01/10/25 11:32 RDW 15.4 % (12.1-15.1) H 01/10/25 11:32 Plt Count 172 10^3/cmm (157-399) 01/10/25 11:32 MPV 9.1 fL (7.4-10.4) 01/10/25 11:32 Neut % (Auto) 72.8 % 01/10/25 11:32 Lymph % (Auto) 15.7 % 01/10/25 11:32 Wagoner % (Auto) 9.2 % 01/10/25 11:32 Eos % (Auto) 1.5 % 01/10/25 11:32 Baso % (Auto) 0.4 % 01/10/25 11:32 Neut # (Auto) 3.89 10^3/uL (1.8-7.7) 01/10/25 11:32 Lymph # (Auto) 0.8 10^3/uL (0.8-4.8) 01/10/25 11:32 Wagoner # (Auto) 0.5 10^3/uL (0.2-0.9) 01/10/25 11:32 Eos # (Auto) 0.1 10^3/uL (0.0-0.8) 01/10/25 11:32 Baso # (Auto) 0.0 10^3/uL (0.0-0.1) 01/10/25 11:32 Nucleated RBC % (auto) 0 % 01/10/25 11:32 Nucleated RBCs # 0.0 /100WBC 01/10/25 11:32 PT 14.70 SECONDS (12.1-14.9) 01/10/25 11:32 INR 1.07 (0.8-1.2) 01/10/25 11:32 Sodium 137 mmol/L (136-145) 01/10/25 11:32 Potassium 3.7 mmol/L (3.5-5.1) 01/10/25 11:32 Chloride 97 mmol/L (98-107) L 01/10/25 11:32 Carbon Dioxide 27 mmol/L (22-29) 01/10/25 11:32 Anion Gap 16.7 (5-19) 01/10/25 11:32 BUN 17 mg/dL (8-23) 01/10/25 11:32 Creatinine 0.9 mg/dL (0.7-1.2) 01/10/25 11:32 GFR Calculation Not Reportable 01/10/25 11:32 Glucose 104 mg/dL (65-115) 01/10/25 11:32 Calculated Osmolality 286 mOsm/kg (285-295) 01/10/25 11:32 Calcium 9.7 mg/dL (8.5-10.5) 01/10/25 11:32 Total Bilirubin 1.0 mg/dL (0.15-1.2) 01/10/25 11:32 AST 27 U/L (0-40) 01/10/25 11:32 ALT 16 U/L (0-41) 01/10/25 11:32 Alkaline Phosphatase 82 U/L (40-130) 01/10/25 11:32 Total Protein 7.5 g/dL (6.6-8.7) 01/10/25 11:32 Albumin 4.3 g/dL (3.5-5.2) 01/10/25 11:32 Globulin 3.2 g/dL (1.3-4.6) 01/10/25 11:32 All radiology interpretation(s) finalized by discharge EKG Data EKG 1: Interpretation: EKG 01/10/2025 9:50 AM atrial fibrillation with a rate of 75 QTc 498 right bundle branch block no acute ST changes noted. Compared to EKG 12/08/2024 EKG 2: Interpretation: EKG 01/10/2025 11:15 AM atrial fibrillation with controlled rate of 79. QTc 516 right bundle branch block present. No acute ST changes no change from previous EKG Discharge Plan Discharge Patient Disposition: Home Clinical Impression: Pleural effusion on right Condition: Stable Prescriptions: No Action aspirin 81 mg tablet,delayed release (DR/EC) 81 mg PO DAILY furosemide [Lasix] 20 mg tablet 20 mg PO BID Rx Instructions: 40MG AM 20MG PM levothyroxine 75 mcg Tablet 75 mcg PO DAILY rosuvastatin 40 mg tablet 20 mg PO DAILY potassium chloride 20 mEq packet 20 meq PO DAILY Qty: 30 0RF Discharge Orders: Discharge ED (Routine); Ordered 01/10/25 Ordered By: Amaury Hill Referrals: Serenity Gamez MD [Primary Care Provider, Family Practice] Discharge Diet: Usual diet Discharge Activity: Resume usual activity Patient Instructions: Opioid Safety, Pain Management, Patient Portal & Irma Instructions Activity Restrictions/Additional Instructions: [facility]. It is very important that you follow up as instructed or that you return to the Emergency Department should you have concerns or if your condition changes or worsens in any way. Emergency department visits are focused on emergent conditions, in some cases you may require further evaluation on an outpatient basis. You were seen in the emergency room with complaints of fluid in your right lung. Chest x-ray does confirm this we discussed doing a thoracentesis here you expressed your wish to leave come back at another time because you had things to do today. Will schedule you for an outpatient thoracentesis at a later date. Case management will make arrangements for you. If your symptoms markedly worsen you can return to the emergency room (Please note that included in your discharge packet is information concerning opioid safety and pain management. This information is given to all patients were discharged from the ER regardless of their discharge diagnosis or the medicines they usually take or are prescribed.) Print Language: Hebrew Coding Level of Care Code ED Assistant Manager Airside Operations for Burt Amezquita
[2025-01-10 11:07] VITALS: BP 178/116; O2SAT 96
--- NOTE | 2025-01-10 11:15 | ECG_ITS ---
[facility] [employer] Test Date: 2025-01-10 Pat Name: Nate Riddle Department: Room: Gender: Male Letter Of Credit Document Examiner: : 1935 Requested By: Amaury Keller Order Number: [id number] Simon MD: Ronald Pedroza M.D. Measurements Intervals [place] Rate: 79 P: 0 ND: 0 QRS: 254 QRSD: 149 T: 34 QT: 449 QTc: 516 Interpretive Statements ATRIAL FIBRILLATION WITH ABERRANT CONDUCTION OR VENTRICULAR PREMATURE COMPLEXES RIGHT AXIS DEVIATION [QRS AXIS > 100] RIGHT BUNDLE BRANCH BLOCK [120+ ms QRS DURATION, UPRIGHT V1, 40+ ms S IN I/aVL/V4/V5/V6] POSSIBLE ANTERIOR MYOCARDIAL INFARCTION , OF INDETERMINATE AGE [30 ms Q WAVE IN V3/V4, OR R < 0.2 mV IN V4] INFERIOR MYOCARDIAL INFARCTION , OF INDETERMINATE AGE [40+ ms Q WAVE AND/OR ST/T ABNORMALITY IN II/aVF] Compared to ECG 01/10/2025 09:50:56 Atrial flutter no longer present Myocardial infarct finding still present Electronically Signed On 01-10-2025 17:43:58 CDT by Ronald Pedroza M.D. [email or web address]
[2025-01-10 11:32] VITALS: BP 132/47; PULSE 57; RESP 18; O2SAT 94
[2025-01-10 11:59] LABS: Hematocrit 36.9 % (37-53); Hemoglobin 12.00 g/dL (11.27-16.99); Mean Corpuscular HGB Conc 32.5 g/dL (30-55); Mean Corpuscular Hemoglobin 28.0 pg (27-33); Mean Corpuscular Volume 86.0 fl (82-101); Nucleated Red Blood Cells % 0 %; Platelet Count 172 10^3/cmm (157-399); Red Blood Count 4.29 10^6/uL (3.85-5.65); White Blood Count 5.34 10^3/uL (3.29-11.43)
[2025-01-10 12:03] VITALS: BP 151/123; O2SAT 95
[2025-01-10 12:09] LABS: INR 1.07 (0.8-1.2); Prothrombin Time 14.70 SECONDS (12.1-14.9)
[2025-01-10 12:14] LABS: Alanine Aminotransferase 16 U/L (0-41); Albumin Level 4.3 g/dL (3.5-5.2); Alkaline Phosphatase 82 U/L (40-130); Anion Gap 16.7 (5-19); Aspartate Amino Transferase 27 U/L (0-40); Blood Urea Nitrogen 17 mg/dL (8-23); Calcium 9.7 mg/dL (8.5-10.5); Carbon Dioxide 27 mmol/L (22-29); Chloride 97 mmol/L (98-107); Creatinine Clr Calc Pharmacy 65.1485; Globulin 3.2 g/dL (1.3-4.6); Glucose 104 mg/dL (65-115); Osmolality Calculated 286 mOsm/kg (285-295); Potassium 3.7 mmol/L (3.5-5.1); Sodium 137 mmol/L (136-145); Total Protein 7.5 g/dL (6.6-8.7)
--- NOTE | 2025-01-10 12:28 | XR_ITS ---
WS: [id number] XR chest 1V portable [id number] REASON FOR EXAM: dyspnea/cough FINDINGS: Compared to the previous examination of 12/07/2024, there has been progression of the right pleural effusion and right lower lung atelectasis. There is also consolidation in the left lower lung and likely left pleural effusion stable compared to the previous examination. Is status post aortocoronary bypass surgery. Moderate tortuosity and ectasia of the thoracic aorta with significant aortic calcification. Cardiomegaly. Mild central pulmonary venous congestion. XR/XR chest 1V portable [id number] IMPRESSION: Progression of right pleural effusion and right lower lobe atelectasis compared to the previous examination as above.
[2025-01-10 12:30] VITALS: BP 169/89; O2SAT 90
--- NOTE | 2025-01-12 09:37 | DCPLANNER ---
faxed outpatient thora order to gi lab
== END 2025-01-10 13:42 | disposition home or self-care (01) ==
PROVIDERS: Emergency Provider Family Medicine; PCP Family Medicine
DX: J90 Pleural effusion, not elsewhere classified (principal); Z79.82 Long term (current) use of aspirin; Z87.891 Personal history of nicotine dependence; Z95.1 Presence of aortocoronary bypass graft; E78.5 Hyperlipidemia, unspecified; I10 Essential (primary) hypertension
CPT/HCPCS: 36415; 71045; 80053; 85025; 85610; 93005; 99285

== ENCOUNTER 2025-01-16 11:15 | Day surgery (SDC) | payer OTHER, SELFPAY ==
--- NOTE | 2025-01-16 11:38 | US_ITS ---
WS: [id number] ULTRASOUND-GUIDED THORACENTESIS, RIGHT HISTORY: Pleural effusion Procedure, risks, and complications were explained to the patient. With the patient in an upright position, the skin over the RIGHT posterior thorax was cleansed with ChloraPrep and anesthetized with 1% buffered lidocaine. A 5 [place] needle is inserted into the pleural fluid without complication. Approximately 1500 cc of clear pleural fluid is removed without difficulty. / thoracentesis [id number] IMPRESSION: 1. RIGHT thoracentesis yielding 1500 cc of fluid. 2. Chest radiograph to follow to evaluate for pneumothorax.
[2025-01-16 11:41] VITALS: BP 159/97; PULSE 86; RESP 16; TEMP 36.1; O2SAT 96
--- NOTE | 2025-01-16 13:07 | XR_ITS ---
WS: [id number] PORTABLE CHEST HISTORY: post thoracentesis, RIGHT COMPARISON: 01/10/2025 No pneumothorax status post RIGHT thoracentesis. Small bilateral pleural effusions remain. Compressive atelectasis at the lung bases. Cardiac size: Mildly enlarged cardiac silhouette. Prior CABG. Mediastinum/Aorta: Mild atherosclerosis aorta. Prior LEFT rotator cuff repair. XR/XR chest 1V portable [id number] IMPRESSION: No pneumothorax status post RIGHT thoracentesis.
== END 2025-01-16 13:30 | disposition home or self-care (01) ==
PROVIDERS: Radiology Diagnostic Radiology; PCP Family Medicine; Visit Provider Family Medicine
PROC: (CPT 32554; principal; 2025-01-16 13:30)
DX: J90 Pleural effusion, not elsewhere classified (principal)
CPT/HCPCS: 32555; 71045

== ENCOUNTER 2025-02-05 09:42 | Emergency (ER) | payer OTHER, SELFPAY ==
--- NOTE | 2025-02-05 09:46 | XRR_ITS ---
PROCEDURE INFORMATION: Exam: XR Chest Exam date and time: 02/05/2025 10:31 AM Age: 89 years old Clinical indication: Cough; Additional info: SOB; HX fluid retention; HX RT thoracentesis x 2 TECHNIQUE: Imaging protocol: Radiologic exam of the chest. Views: 1 view. COMPARISON: CR XR chest 1V portable [id number] 01/16/2025 1:11 PM FINDINGS: Lungs: Bibasilar opacities/consolidation, ykott-[id number]-[id number]-left. Pleural spaces: Small pleural effusions, mrugx-alwzgno-vccf-left. The right pleural effusion appears larger in the left smaller. No pneumothorax. Heart/Mediastinum: Unremarkable. No cardiomegaly. Bones/joints: Status post median sternotomy and CABG. XR/XR chest 1V portable [id number] IMPRESSION: Pleural-parenchymal opacities toward the bases zplee-[id number]-csff-left. No pneumothorax is seen.
--- OUTSIDE RECORDS SUMMARY | 2025-02-05 09:47 | XMS_ITS | Encounter Summary ---
Author Organization [employer] [facility] Address [address] [place] [address] Care Team Providers Care Powder Coat Painter Name Role Phone Mauricio Ivy MD Primary Care Provider [phone] Encounter Details Date Type Department Care Team (Late st Contact Info) Description 01/15/2006 Inpatient Historical HIS IN BED Mauricio Ivy MD [address] [facility] [facility] [address] [place] [address] Coronary Atherosclerosis of [place] Coronary Artery (Primary Dx) Social History Tobacco Use Types Packs/Day Years Used Date Smoking Tobacco: Never Assessed Sex and Gender Information Value Date Recorded Sex Assigned at Not on file Legal 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 Gender Identity Not on file Sexual [...] TESTING Final R esult Performing Organization Address City/[facility] [address]/[facility] Co de Phone Number INTERFACE SYSTEM Refer to clinic/hospital department * (ABNORMAL) POC ACTIVATED CLOTTING TIME (01/15/2006 4:49 PM CDT) [facility] ACT POC 188(H) 79 - 149 sec INTERFACE SYSTEM 01/15/2006 4:49 PM CDT Mauricio Ivy MD POINT OF CARE TESTING Final R ult Performing Organization Address [facility] [address]/[facility] de Phone Number INTERFACE SYSTEM Refer to clinic/hospital department * (ABNORMAL) CBC WITHOUT DIFFERENTIAL (01/15/2006 9:32 AM CDT) [facility] WBC 6.1 4.8 - 10.8 K/ul INTERFACE [...] ORDERABLES Final R esult Performing Organization Address City/[facility] [address]/[facility] de Phone Number INTERFACE SYSTEM [...] ORDERABLES Final R esult Performing Organization Address City/[facility] [address]/ZIP Co de Phone Number INTERFACE SYSTEM Refer [...] encounter Visit Diagnoses Diagnosis 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
--- OUTSIDE RECORDS SUMMARY | 2025-02-05 09:47 | XMS_ITS | Encounter Summary ---
Author Organization [facility] Address [address] [place] [address] Care Team Providers Care Geospatial Image Analyst Name Role Phone Mauricio Ivy MD Primary Care Provider [phone] Encounter Details Date Type Department Care Team (Latest Contact Info) Description 02/16/2006 Outpatient Historical [facility] Cardiology- [place] [address] [place] [address] Vane Sun, ASSISTANT PROFESSOR OF GEOGRAPHY [address] [place] [address] Coronary Atherosclerosis of [place] Coronary Artery (Primary Dx); Unspecified Essential Hypertension; Other and Unspecified Hyperlipidemia Social History Tobacco Use Types Packs/Day Years Used Date Smoking Tobacco: Never Assessed Sex and Gender Information Value Date Recorded Sex Assigned at Not on file 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
--- OUTSIDE RECORDS SUMMARY | 2025-02-05 09:47 | XMS_ITS | Encounter Summary ---
Author Organization [employer] Address [address] [facility] Attn: [place] [address] Care Team Providers Care Graduate Teaching Assistant Name Role Phone Mauricio Ivy MD Primary Care Provider [phone] Encounter Details Date Type Department Care Team (Late st Contact Info) Description 12/23/2001 Outpatient Historical Mauricio Ivy MD [address] [place] [address] Social History Tobacco Use Types Packs/Day Years Used Date Smoking Tobacco: Never Assessed Sex and Gender Information Value Date Recorded Sex Assigned at Not on file Legal Sex Male 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
--- OUTSIDE RECORDS SUMMARY | 2025-02-05 09:47 | XMS_ITS | Encounter Summary ---
Author Organization [facility] Address [address] [place] [address] Care Team Providers Care Transcription Manager Name Role Phone Mauricio Ivy MD Primary Care Provider [phone] Encounter Details Date Type Department Care Team (Latest Contact Info) Description 01/28/2007 Outpatient Historical [facility] Cardiology Ancillary Services-[place] [address] [place] [address] Eduar Santoro MD [address] [place] [address] Coronary Atherosclerosis of [place] Coronary Artery (Primary Dx); Unspecified Chest Pain Social History Tobacco Use Types Packs/Day Years Used Date Smoking Tobacco: Never Assessed Sex and Gender Information Value Date Recorded Sex Assigned at Not on file 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
--- OUTSIDE RECORDS SUMMARY | 2025-02-05 09:47 | XMS_ITS | Encounter Summary ---
Author Organization [facility] Address [address] [place] [address] Care Team Providers Care Air Conditioning Unit Tester Name Role Phone Mauricio Ivy MD Primary Care Provider Encounter Details Date Type Department Care Team (Latest Contact Info) Description 02/16/2006 Outpatient Historical [facility] Cardiology Ancillary Services-[place] [address] [place] [address] Deep Nye MD NO ADDRESS ON FILE Coronary Atherosclerosis of [place] Coronary Artery (Primary Dx); Unspecified Chest Pain Social History Tobacco Use Types Packs/Day Years Used Date Smoking Tobacco: Never Assessed Sex and Gender Information Value Date Recorded Sex Assigned at Not on file Legal Sex Male 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
--- OUTSIDE RECORDS SUMMARY | 2025-02-05 09:47 | XMS_ITS | Encounter Summary ---
Author Organization [facility] Address [address] [place] [address] Care Team Providers Care Mail Processing Equipment Mechanic Name Role Phone Mauricio Ivy MD Primary Care Provider [phone] Encounter Details Date Type Department Care Team (Latest Contact Info) Description 01/15/2000 Outpatient Historical [facility] Cardiology- [place] [address] [place] [address] Mauricio Ivy MD [address] [place] [address] Other and unspecified angina pectoris (Primary Dx); Coronary atherosclerosis of [place] coronary artery Social History Tobacco Use Types Packs/Day Years Used Date Smoking Tobacco: Never Assessed Sex and Gender Information Value Date Recorded Sex Assigned at Not on file Legal Sex Male 6: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
--- OUTSIDE RECORDS SUMMARY | 2025-02-05 09:47 | XMS_ITS | Encounter Summary ---
Author Organization [facility] Address [address] [place] [address] Care Team Providers Care Estimator Project Manager Name Role Phone Mauricio Ivy MD Primary Care Provider [phone] Encounter Details Date Type Department Care Team (Latest Contact Info) Description 12/07/2006 Outpatient Historical [facility] Cardiology- [place] [address] [place] [address] Vane Sun, CYLINDER DYER [address] [place] [address] Coronary Atherosclerosis of [place] Coronary Artery (Primary Dx); Unspecified Essential Hypertension; Unspecified Chest Pain; Other and Unspecified Hyperlipidemia Social History Tobacco Use Types Packs/Day Years Used Date Smoking Tobacco: Never Assessed Sex and Gender Information Value Date Recorded Sex Assigned at Not on file 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 Gender Identity Not on file Sexual Orientation Not on file documented as of this encounter Plan of Treatment Not on file documented as of this encounter Visit Diagnoses Diagnosis Coronary atherosclerosis of [place] coronary artery- Primary Unspecified essential hypertension Chest pain, unspecified Other and unspecified hyperlipidemia documented in this encounter Care Teams Estimator Project Manager Relationship Specialty Start Date End Date Mauricio Ivy MD [address] [facility] [address] [place] [address] PCP - General 01/15/06 documented as of this encounter
--- OUTSIDE RECORDS SUMMARY | 2025-02-05 09:47 | XMS_ITS | Clinical Summary ---
Author Organization [facility] Address [address] Attn: [place] [address] Care Team Providers Care Asset Administrator Name Role Phone Mauricio Ivy MD Primary Care Provider [phone] Social History Tobacco Use Types Packs/Day Years Used Date Smoking Tobacco: Never Assessed Sex and Gender Information Value Date Recorded Sex Assigned at Not on file Legal Sex Male 6:04 AM ENERGY RISK MANAGEMENT ANALYST Gender Identity Not on file Sexual Orientation Not on file Plan of Treatment Health Maintenance Due Date Last Done Comments DTAP/TDAP/TD VACCINES (1 - Tdap) 1954 PNEUMOCOCCAL VACCINE 50+ YEARS (1 of 1 - PCV) 07/23/18 88 ZOSTER VACCINE (1 of 2) 07/24/1987 RSV VACCINE (60+ or ) (1 - 1-dose 75+ series) 2012 INFLUENZA VACCINE (#1) 2024 Care Teams Asset Administrator Relationship Specialty Start Date End Date Mauricio Ivy MD [address] [facility] [address] [place] [address] PCP - General 01/15/06
--- OUTSIDE RECORDS SUMMARY | 2025-02-05 09:47 | XMS_ITS | Encounter Summary ---
Author Organization [employer] Address [facility] Attn: [place] [address] Care Team Providers Care Product Marketing Coordinator Name Role Phone Mauricio Ivy MD Primary Care Provider [phone] Encounter Details Date Type Department Care Team (Late st Contact Info) Description 02/06/2000 Outpatient Historical Mauricio Ivy MD [address] [place] [id number] Social History Tobacco Use Types Packs/Day Years Used Date Smoking Tobacco: Never Assessed Sex and Gender Information Value Date Recorded Sex Assigned at Not on file Legal Sex Male 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
[2025-02-05 09:58] VITALS: BP 171/109; PULSE 96; RESP 18; TEMP 36.6; O2SAT 94; BMI 27.8
--- NOTE | 2025-02-05 09:59 | ECG_ITS ---
[facility] Test Date: 2025-02-05 Pat Name: Nate Riddle Department: Room: Gender: Male Injury/Safety Hazard Assessment: : 1935 Requested By: Amaury Keller Order Number: [id number] Reading MD: MALENA DEUTSCH Measurements Intervals [place] Rate: 82 P: 0 MD: 0 QRS: 260 QRSD: 158 T: 61 QT: 419 QTc: 492 Interpretive Statements ATRIAL FIBRILLATION WITH ABERRANT CONDUCTION OR VENTRICULAR PREMATURE COMPLEXES RIGHT AXIS DEVIATION [QRS AXIS > 100] RIGHT BUNDLE BRANCH BLOCK [120+ ms QRS DURATION, UPRIGHT V1, 40+ ms S IN I/aVL/V4/V5/V6] Compared to ECG 01/10/2025 11:15:06 Myocardial infarct finding no longer present Electronically Signed On 02-05-2025 23:26:32 CDT by MALENA DEUTSCH [id number]
[2025-02-05 10:27] LABS: Hematocrit 35.2 % (37-53); Hemoglobin 11.50 g/dL (11.27-16.99); Mean Corpuscular HGB Conc 32.7 g/dL (30-55); Mean Corpuscular Hemoglobin 27.8 pg (27-33); Mean Corpuscular Volume 85.2 fl (82-101); Nucleated Red Blood Cells % 0 %; Platelet Count 137 10^3/cmm (157-399); Red Blood Count 4.13 10^6/uL (3.85-5.65); White Blood Count 4.26 10^3/uL (3.29-11.43)
--- NOTE | 2025-02-05 10:33 | ED_ITS ---
HPI - SOB/Dyspnea 2 General: Chief Complaint: Shortness of Breath/Dyspnea Stated Complaint: Fluid build up on right side lung Time Seen by Provider: 02/05/25 09:52 History of Present Illness: HPI Narrative: 89-year-old male presents emergency room complaining of increasing shortness of breath. Patient has had recurrent right pleural effusion has come to the emergency room previously requesting that it be drained he is here today requesting it be drained immediately. Said increased swelling in his legs as well. His last thoracentesis was on 01/16. Noted in the chart patient has an appointment with Dr. Ascencio tomorrow. Associated symptoms: Deny abdominal pain, chest pain or fever(s) Related Data Home Medications ?Medication ?Instructions ?Recorded ?Confirmed levothyroxine 75 mcg tablet 75 mcg PO DAILY 11/28/24 0 01/12/25 rosuvastatin 40 mg tablet 20 mg PO DAILY 11/28/2412/26 aspirin 81 mg tablet,delayed 81 mg PO DAILY 01/12/25 0 01/12/25 release furosemide 20 mg tablet (Lasix) 20 mg PO BID 01/12/25 01/12/25 Previous Rx's ?Medication ?Instructions ?Recorded potassium chloride 20 mEq oral 20 meq PO DAILY #30 ea 12/12/24 packet Allergies Allergy/AdvReac Type Severity Reaction Status Date / Time No Known Allergies Allergy Verified 12/27/24 16:28 Review of Systems 2 Const: Denies: fever(s) or chills Card: Denies: chest pain Resp: Denies: dyspnea GI: Denies: abdominal pain : Denies: dysuria, urinary frequency or urinary urgency Musc: Denies: neck pain or back pain Skin/Breast: Denies: rash PFSH ED 2 PFSH: Medical History History of leukemia Balance disorder Hyperlipidemia HTN (hypertension) ASHD (arteriosclerotic heart disease) Surgical History 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 Family History Father Congestive heart failure (CHF) Hypertension Mother CAD (coronary artery disease) Hypertension Social History Smoking and tobacco/nicotine status: former use of tobacco/nicotine Physical Exam 2 Const: GENERAL APPEARANCE: cooperative ORIENTATION/CONSCIOUSNESS: Yes awake, Yes oriented to person, Yes oriented to place and Yes oriented to time HENMT: COMMON NORMALS: normocephalic, atraumatic and hearing grossly normal bilaterally HEAD & SCALP: normocephalic and atraumatic Resp: COMMON NORMALS: normal respiratory effort, No retractions, No use of accessory muscles and clear to auscultation bilaterally AUSCULTATION: clear to auscultation bilaterally Cardio: COMMON NORMALS: regular rate, regular rhythm and No murmurs present (Cardio) RATE: regular rate RHYTHM: regular rhythm GI: COMMON NORMALS: Soft to palpation and No hepatosplenomegaly present A USCULTATION: Yes normoactive bowel sounds PALPATION: Yes Soft to palpation, No Tenderness to palpation present (GI), No Guarding due to palpation present (GI) and Yes No hepatosplenomegaly present Extremity: COMMON NORMALS: normal to inspection, capillary refill normal, no clubbing, cyanosis or edema, no calf tenderness and no pedal edema Neuro: SENSORIUM/ORIENTATION: Yes oriented to person, Yes oriented to place and Yes oriented to time Psych: ATTITUDE: Yes Belligerent attititude/behavior present, Yes agitated and Yes aggressive Skin: COMMON NORMALS: no rashes or lesions noted GENERAL SKIN EXAM: no rashes or lesions noted Course 2 Vital Signs: Vital signs: Vital Signs Temperature 97.9 F 02/05/25 09:58 Pulse Rate 96 02/05/25 09:58 Respiratory Rate 18 02/05/25 09:58 Blood Pressure 171/109 02/05/25 09:58 Pulse Oximetry 94 02/05/25 09:58 MDM - SOB/Dyspnea Medical Decision Making Patient was seen in the ER on 11 28 at that time he had a thoracentesis fluid was submitted for evaluation reviewed on the chart. He returned on that time he was admitted. He had been referred to the pulmonology clinic from the visit. At the 01/16 visit he was admitted to the hospital for several days. He is found to have a mildly reduced ejection fraction. He has a follow-up appointment with Dr. Ascencio tomorrow. He is quite upset that there is no one here to do the thoracentesis today. Will try to get him set up for outpatients tomorrow he should also keep his appointment with pulmonology tomorrow. He is wanting to go home. We did get PT PTT BC. His blood pressure is somewhat elevated initially but improved at time of discharge. Will send referral for outpatient thoracentesis but encouraged him to keep the pulmonology clinic appointment tomorrow that may be a faster route to get further evaluation done. Medical Records I reviewed the patient's medical records. Lab Data I reviewed the patient's lab results. 02/05/25 10:13 02/05/25 10:13 Labs/Radiology: Radiology Impressions Chest X-Ray 02/05/25 09:46 IMPRESSION: Pleural-parenchymal opacities toward the bases bbvbv-zcynfcj-uoke-left. No pneumothorax is seen. Laboratory Results WBC 4.26 10^3/uL (3.29-11.43) 02/05/25 10:13 RBC 4.13 10^6/uL (3.85-5.65) 02/05/25 10:13 Hgb 11.50 g/dL (11.27-16.99) 02/05/25 10:13 Hct 35.2 % (37-53) L 02/05/25 10:13 MCV 85.2 fl (82-101) 02/05/25 10:13 MCH 27.8 pg (27-33) 02/05/25 10:13 MCHC 32.7 g/dL (30-55) 02/05/25 10:13 RDW 15.2 % (12.1-15.1) H 02/05/25 10:13 Plt Count 137 10^3/cmm (157-399) L 02/05/25 10:13 MPV 9.4 fL (7.4-10.4) 02/05/25 10:13 Neut % (Auto) 70.9 % 02/05/25 10:13 Lymph % (Auto) 17.4 % 02/05/25 10:13 [place] % (Auto) 9.4 % 02/05/25 10:13 Eos % (Auto) 1.9 % 02/05/25 10:13 Baso % (Auto) 0.2 % 02/05/25 10:13 Neut # (Auto) 3.02 10^3/uL (1.8-7.7) 02/05/25 10:13 Lymph # (Auto) 0.7 10^3/uL (0.8-4.8) L 02/05/25 10:13 [place] # (Auto) 0.4 10^3/uL (0.2-0.9) 02/05/25 10:13 Eos # (Auto) 0.1 10^3/uL (0.0-0.8) 02/05/25 10:13 Baso # (Auto) 0.0 10^3/uL (0.0-0.1) 02/05/25 10:13 Nucleated RBC % (auto) 0 % 02/05/25 10:13 Nucleated RBCs # 0.0 /100WBC 02/05/25 10:13 PT 14.90 SECONDS (12.1-14.9) 02/05/25 10:13 INR 1.09 (0.8-1.2) 02/05/25 10:13 APTT 31.9 SECONDS (23.9-36.7) 02/05/25 10:13 Sodium 137 mmol/L (136-145) 02/05/25 10:13 Potassium 3.8 mmol/L (3.5-5.1) 02/05/25 10:13 Chloride 96 mmol/L (98-107) L 02/05/25 10:13 Carbon Dioxide 26 mmol/L (22-29) 02/05/25 10:13 Anion Gap 18.8 (5-19) 02/05/25 10:13 BUN 20 mg/dL (8-23) 02/05/25 10:13 Creatinine 1.1 mg/dL (0.7-1.2) 02/05/25 10:13 GFR Calculation Not Reportable 02/05/25 10:13 Glucose 101 mg/dL (65-115) 02/05/25 10:13 Calculated Osmolality 287 mOsm/kg (285-295) 02/05/25 10:13 Calcium 9.5 mg/dL (8.5-10.5) 02/05/25 10:13 Total Bilirubin 1.2 mg/dL (0.15-1.2) 02/05/25 10:13 AST 35 U/L (0-40) 02/05/25 10:13 ALT 21 U/L (0-41) 02/05/25 10:13 Alkaline Phosphatase 92 U/L (40-130) 02/05/25 10:13 Total Protein 7.1 g/dL (6.6-8.7) 02/05/25 10:13 Albumin 4.0 g/dL (3.5-5.2) 02/05/25 10:13 Globulin 3.1 g/dL (1.3-4.6) 02/05/25 10:13 All radiology interpretation(s) finalized by discharge Discharge Plan Discharge Patient Disposition: Home Clinical Impression: Pleural effusion, right, Atrial fibrillation Condition: Stable Prescriptions: No Action aspirin 81 mg tablet,delayed release (DR/EC) 81 mg PO DAILY furosemide [Lasix] 20 mg tablet 20 mg PO BID Rx Instructions: 40MG AM 20MG PM levothyroxine 75 mcg Tablet 75 mcg PO DAILY rosuvastatin 40 mg tablet 20 mg PO DAILY potassium chloride 20 mEq packet 20 meq PO DAILY Qty: 30 0RF Discharge Orders: Discharge ED (Routine); Ordered 02/05/25 Ordered By: Amaury Hill Referrals: Serenity Gamez MD [Primary Care Provider, Family Practice] Patient Instructions: Opioid Safety, Pain Management, Patient Portal & Irma Instructions Activity Restrictions/Additional Instructions: [facility] It is very important that you follow up as instructed or that you return to the Emergency Department should you have concerns or if your condition changes or worsens in any way. Emergency department visits are focused on emergent conditions, in some cases you may require further evaluation on an outpatient basis. You are seen in the emergency room with complaints of difficulty breathing and increasing fluid in your right lung. Chest x-ray verifies if that has recurred. Laboratory tests were done today including a CBC and PT and INR in preparation for doing thoracentesis tomorrow. Noted that you have an appoint with pulmonology clinic tomorrow you should keep this appointment will also send a referral to case management to see if you can be scheduled for thoracentesis in the GI Lab. (Please note that included in your discharge packet is information concerning opioid safety and pain management. This information is given to all patients were discharged from the ER regardless of their discharge diagnosis or the medicines they usually take or are prescribed.) Print Language: Occitan Coding Level of Care Code ED Egg Worker for Burt Amezquita
[2025-02-05 10:49] LABS: INR 1.09 (0.8-1.2); Prothrombin Time 14.90 SECONDS (12.1-14.9)
[2025-02-05 10:50] LABS: Partial Thromboplastin Time 31.9 SECONDS (23.9-36.7)
[2025-02-05 10:57] LABS: Alanine Aminotransferase 21 U/L (0-41); Albumin Level 4.0 g/dL (3.5-5.2); Alkaline Phosphatase 92 U/L (40-130); Anion Gap 18.8 (5-19); Aspartate Amino Transferase 35 U/L (0-40); Blood Urea Nitrogen 20 mg/dL (8-23); Calcium 9.5 mg/dL (8.5-10.5); Carbon Dioxide 26 mmol/L (22-29); Chloride 96 mmol/L (98-107); Creatinine Clr Calc Pharmacy 54.5172; Globulin 3.1 g/dL (1.3-4.6); Glucose 101 mg/dL (65-115); Osmolality Calculated 287 mOsm/kg (285-295); Potassium 3.8 mmol/L (3.5-5.1); Sodium 137 mmol/L (136-145); Total Protein 7.1 g/dL (6.6-8.7)
--- NOTE | 2025-02-07 16:00 | PC.NURSE ---
GI referral sent.
== END 2025-02-05 10:57 | disposition home or self-care (01) ==
PROVIDERS: Emergency Provider Family Medicine; PCP Family Medicine
DX: J90 Pleural effusion, not elsewhere classified (principal); I48.91 Unspecified atrial fibrillation; Z79.82 Long term (current) use of aspirin; Z87.891 Personal history of nicotine dependence; Z95.1 Presence of aortocoronary bypass graft; E78.5 Hyperlipidemia, unspecified; I10 Essential (primary) hypertension
CPT/HCPCS: 36415; 71045; 80053; 85025; 85610; 85730; 93005; 99285

== ENCOUNTER → 2025-02-06 14:01 | Outpatient (BNVA) | payer OTHER, SELFPAY | PROVIDERS: PCP Family Medicine; Visit Provider Internal Medicine | DX: J90 Pleural effusion, not elsewhere classified (principal); I11.0 Hypertensive heart disease with heart failure; I50.9 Heart failure, unspecified; Z87.891 Personal history of nicotine dependence; R06.00 Dyspnea, unspecified; J44.9 Chronic obstructive pulmonary disease, unspecified; R06.89 Other abnormalities of breathing | CPT/HCPCS: 36415; 80053; 83615; 83880; 99204; Q3014 ==

== ENCOUNTER 2025-02-07 10:56 | Day surgery (SDC) | payer OTHER, SELFPAY ==
[2025-02-07 11:40] VITALS: BMI 27.8
[2025-02-07 11:41] VITALS: BP 173/105; PULSE 84; RESP 20; TEMP 36.6; O2SAT 94
--- NOTE | 2025-02-07 11:43 | US_ITS ---
WS: [id number] ULTRASOUND-GUIDED THORACENTESIS CLINICAL INFORMATION: rt pleural effusion/dyspnea PROCEDURE: Informed consent: The risks, benefits, and alternatives of the procedure were discussed with the patient. Verbal and written consent was obtained. Timeout: A timeout was performed to confirm the correct patient, procedure, and site. Site: RIGHT chest Preparation: A suitable skin site was identified. The patient was prepped and draped in usual sterile fashion. Lidocaine 1% was used for local anesthesia. Catheter: 4 Icelandic One-Step catheter. Fluid Volume: 1000 ml Color: Clear yellow Complications: None. Patient disposition: Discharged from the department in stable condition. / thoracentesis [id number] IMPRESSION: Uncomplicated ultrasound-guided RIGHT thoracentesis.
[2025-02-07 12:34] LABS: Total Protein 7.0 g/dL (6.6-8.7)
--- NOTE | 2025-02-07 13:01 | XR_ITS ---
WS: [id number] CHEST XRAY TECHNIQUE: Portable chest. CLINICAL INFORMATION: post thora FINDINGS: Heart: Cardiomegaly. Aortic calcification. Sternotomy with mediastinal clips.. Lungs: Status post RIGHT thoracentesis. Subsegmental atelectasis RIGHT lower lobe. Improved RIGHT pleural effusion. Small residual pleural effusions. No pneumothorax. Bones: Normal visualized bony structures. XR/XR chest 1V portable [id number] IMPRESSION: Improved RIGHT pleural effusion postthoracentesis. No pneumothorax.
[2025-02-07 13:48] LABS: Apprearance, Body Fluid CLOUDY; Color, Body Fluid AMBER
[2025-02-07 13:49] LABS: Cyto Order Verification Order Verified; Fluid Laterality RIGHT PLEURAL FLUID; PATH Referral YES
[2025-02-07 13:51] LABS: Body Fluid Polynuclear #Cells 0.024; Monocytes # Body Fluid 0.153; Mononuclear WBC Body Fluid % 86.400 %; Polynuclear WBC Body Fluid % 13.600 %
[2025-02-07 14:35] LABS: Fluid Alkaline Phos. 15 IU/L
== END 2025-02-07 13:34 | disposition home or self-care (01) ==
LOC: GILAB 10:57
PROVIDERS: Radiology Neuroradiology; PCP Family Medicine; Visit Provider Internal Medicine
PROC: (CPT 32554; principal; 2025-02-07 13:00)
DX: J90 Pleural effusion, not elsewhere classified (principal); R06.00 Dyspnea, unspecified
CPT/HCPCS: 32555; 36415; 71045; 80503; 82042; 82150; 82465; 82945; 83615; 83986; 84075; 84155; 84157; 84315; 84478; 84560; 87015; 87070; 87075; 87102; 87116; 87205; 87206; 87801; 88112; 88305; 89050

== ENCOUNTER 2025-02-10 10:07 | Outpatient (CLI) | payer OTHER, SELFPAY ==
--- NOTE | 2025-02-10 10:17 | XR_ITS ---
WS: [id number] XR chest 2V* [id number] REASON FOR EXAM: R06.00 - Dyspnea, unspecified FINDINGS: Examination is unchanged compared to the previous day. Sternal sutures and previous coronary artery bypass surgery. The heart is not significantly enlarged. There is mild central pulmonary venous congestion. Calcified granulomas disease in both hemithoraces. Small bilateral pleural effusions. Minimal atelectasis in both lower lung cristobal. Moderate degenerative spondylosis in the thoracic spine. XR/XR chest 2V* [id number] IMPRESSION: Stable abnormal chest as above.
== END 2025-02-10 10:08 | disposition home or self-care (01) ==
LOC: RAD 10:08
PROVIDERS: PCP Family Medicine; Visit Provider Internal Medicine
DX: R06.00 Dyspnea, unspecified (principal); R91.8 Other nonspecific abnormal finding of lung field; J90 Pleural effusion, not elsewhere classified; M47.894 Other spondylosis, thoracic region
CPT/HCPCS: 71046

== ENCOUNTER 2025-02-14 13:54 | Emergency (ER) | payer OTHER, SELFPAY ==
[2025-02-14] VITALS (7 sets, daily range): BP systolic 140–170; BP diastolic 90–101; PULSE 74–90; RESP 16; TEMP 36.4; O2SAT 92–98
--- NOTE | 2025-02-14 14:03 | ECG_ITS ---
[employer] Test Date: 2025-02-14 Pat Name: Miquel Riddle Department: Room: Gender: Male Visual Supervisor: : 1935 Requested By: Amaury Keller Order Number: [id number] Simon MD: Ronald Pedroza M.D. Measurements Intervals [place] Rate: 77 P: 0 WI: 0 QRS: 268 QRSD: 141 T: 63 QT: 411 QTc: 465 Interpretive Statements ATRIAL FIBRILLATION RIGHT AXIS DEVIATION [QRS AXIS > 100] RIGHT BUNDLE BRANCH BLOCK [120+ ms QRS DURATION, UPRIGHT V1, 40+ ms S IN I/aVL/V4/V5/V6] ANTERIOR MYOCARDIAL INFARCTION , OF INDETERMINATE AGE [40+ ms Q WAVE AND/OR ST/T ABNORMALITY IN V3/V4] INFERIOR MYOCARDIAL INFARCTION , PROBABLY OLD [40+ ms Q WAVE AND/OR ST/T ABNORMALITY IN II/aVF] INTERPRETATION BASED ON A DEFAULT AGE OF 40 YEARS Compared to ECG 02/05/2025 09:59:51.Myocardial infarct finding now present Ventricular premature complex(es) no longer present Aberrant conduction of supraventricular beat(s) no longer present Electronically Signed On 02-14-2025 15:32:13 CDT by Ronald Pedroza M.D. [id number]
--- NOTE | 2025-02-14 14:03 | XRR_ITS ---
PROCEDURE INFORMATION: Exam: XR Chest Exam date and time: 02/14/2025 2:16 PM Age: 89 years old Clinical indication: Cough and dyspnea; Additional info: Dyspnea/cough TECHNIQUE: Imaging protocol: Radiologic exam of the chest. Views: 1 view. COMPARISON: CR XR chest 2V* [id number] 02/10/2025 10:33 AM FINDINGS: Lungs: Perxw-li-ozlpfmgb bilateral pleural effusions with mild adjacent atelectasis or airspace disease. Pleural spaces: No appreciable pneumothorax. Heart/Mediastinum: Mild cardiomegaly. Postoperative changes of CABG. Vasculature: Atherosclerosis of the aorta. Bones/joints: Median sternotomy wires. Partially imaged cervical spine fusion instrumentation. XR/XR chest 1V portable [id number] IMPRESSION: 1. Oznne-az-hjprfczn bilateral pleural effusions with mild adjacent atelectasis or airspace disease. 2. Mild cardiomegaly. 3. No significant interval change.
--- NOTE | 2025-02-14 14:08 | ED_ITS ---
HPI - SOB/Dyspnea 2 General: Chief Complaint: Shortness of Breath/Dyspnea Stated Complaint: sob Time Seen by Provider: 02/14/25 14:07 History of Present Illness: HPI Narrative: 89-year-old female who presents to the e mergency room with complaints of shortness of breath. He is chronically having shortness of breath is a chronic right-sided pleural effusion which has been drained several times. He has a history of congestive heart failure. He is on Lasix. He said increased swelling in his legs and worsening PND and orthopnea. No chest pain. Associated symptoms: Reports orthopnea; Deny abdominal pain, chest pain or fever(s) Related Data Home Medications ?Medication ?Instructions ?Recorded ?Confirmed levothyroxine 75 mcg tablet 75 mcg PO DAILY 11/28/24 1 rosuvastatin 40 mg tablet 20 mg PO DAILY 11/28/2401/25 aspirin 81 mg tablet,delayed 81 mg PO DAILY 01/12/25 1 release furosemide 20 mg tablet (Lasix) 20 mg PO BID 01/12/25 02/07/25 Previous Rx's ?Medication ?Instructions ?Recorded potassium chloride 20 mEq oral 20 meq PO DAILY #30 ea 12/12/24 packet Allergies Allergy/AdvReac Type Severity Reaction Status Date / Time No Known Allergies Allergy Verified 02/14/25 14:08 Review of Systems 2 Const: Denies: fever(s) or chills Card: Reports: dyspnea on exertion and orthopnea; Denies: chest pain Resp: Reports: dyspnea GI: Denies: abdominal pain : Denies: dysuria, urinary frequency or urinary urgency Musc: Denies: neck pain or back pain Skin/Breast: Denies: rash PFSH ED 2 PFSH: Medical History Dyspnea History of leukemia Balance disorder Hyperlipidemia HTN (hypertension) ASHD (arteriosclerotic heart disease) Surgical History 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 1 ppd X 20 Years) Physical Exam 2 Const: GENERAL APPEARANCE: cooperative ORIENTATION/CONSCIOUSNESS: Yes awake, Yes oriented to person, Yes oriented to place and Yes oriented to time HENMT: COMMON NORMALS: normocephalic, atraumatic and hearing grossly normal bilaterally HEAD & SCALP: normocephalic and atraumatic Resp: COMMON NORMALS: normal respiratory effort, No retractions and No use of accessory muscles OTHER: Diminished breath sounds bilaterally at the bases with crackles at the right Cardio: COMMON NORMALS: regular rate, regular rhythm and No murmurs present (Cardio) RATE: regular rate RHYTHM: regular rhythm GI: COMMON NORMALS: Soft to palpation and No hepatosplenomegaly present A USCULTATION: Yes normoactive bowel sounds PALPATION: Yes Soft to palpation, No Tenderness to palpation present (GI), No Guarding due to palpation present (GI) and Yes No hepatosplenomegaly present Extremity: COMMON NORMALS: normal to inspection, capillary refill normal, no clubbing, cyanosis or edema, no calf tenderness and no pedal edema Neuro: SENSORIUM/ORIENTATION: Yes oriented to person, Yes oriented to place and Yes oriented to time Skin: COMMON NORMALS: no rashes or lesions noted GENERAL SKIN EXAM: no rashes or lesions noted Course 2 Vital Signs: Vital signs: Vital Signs Temperature 97.6 F 02/14/25 13:57 Pulse Rate 74 02/14/25 17:09 Respiratory Rate 16 02/14/25 15:11 Blood Pressure 170/101 02/14/25 17:09 Pulse Oximetry 98 02/14/25 17:09 Oxygen Delivery Me thod Room Air 02/14/25 16:00 MDM - SOB/Dyspnea Medical Decision Making Patient had right-sided pleural effusion requesting drainage. Discussed Dr. Sim ultrasound done Dr. Sim did a thoracentesis drained proximately 1 L he states he feels much better he now wishes to go home encouraged him to follow-up with pulmonology and cardiology as previously scheduled. Medical Records I reviewed the patient's medical records. Lab Data I reviewed the patient's lab results. 02/14/25 14:24 02/14/25 14:24 Labs/Radiology: Radiology Impressions Thoracentesis Ultrasound 02/14/25 14:34 IMPRESSION: 1. RIGHT thoracentesis yielding 1700 cc of fluid. 2. Chest radiograph to follow to evaluate for pneumothorax. Chest X-Ray 02/14/25 15:38 IMPRESSION: 1. The previously seen air-fluid level in the right lung base is no longer visualized. The right lung apex appears slightly lucent, without a definite pleural line. Findings are favored to be secondary to technique, though a tiny right apical pneumothorax is difficult to exclude. 2. Small bilateral pleural effusions. 3. Opacities in the ycims-boekorg-uhrr-left lung bases, favored to represent atelectasis, though superimposed infection can not be excluded. Laboratory Results WBC 4.54 10^3/uL (3.29-11.43) 02/14/25 14:24 RBC 4.39 10^6/uL (3.85-5.65) 02/14/25 14:24 Hgb 11.80 g/dL (11.27-16.99) 02/14/25 14:24 Hct 37.9 % (37-53) 02/14/25 14:24 MCV 86.3 fl (82-101) 02/14/25 14:24 MCH 26.9 pg (27-33) L 02/14/25 14:24 MCHC 31.1 g/dL (30-55) 02/14/25 14:24 RDW 15.6 % (12.1-15.1) H 02/14/25 14:24 Plt Count 171 10^3/cmm (157-399) 02/14/25 14:24 MPV 9.3 fL (7.4-10.4) 02/14/25 14:24 Neut % (Auto) 72.0 % 02/14/25 14:24 Lymph % (Auto) 14.5 % 02/14/25 14:24 [place] % (Auto) 10.6 % 02/14/25 14:24 Eos % (Auto) 2.0 % 02/14/25 14:24 Baso % (Auto) 0.7 % 02/14/25 14:24 Neut # (Auto) 3.27 10^3/uL (1.8-7.7) 02/14/25 14:24 Lymph # (Auto) 0.7 10^3/uL (0.8-4.8) L 02/14/25 14:24 [place] # (Auto) 0.5 10^3/uL (0.2-0.9) 02/14/25 14:24 Eos # (Auto) 0.1 10^3/uL (0.0-0.8) 02/14/25 14:24 Baso # (Auto) 0.0 10^3/uL (0.0-0.1) 02/14/25 14:24 Nucleated RBC % (auto) 0 % 02/14/25 14:24 Nucleated RBCs # 0.0 /100WBC 02/14/25 14:24 Sodium 138 mmol/L (136-145) 02/14/25 14:24 Potassium 3.6 mmol/L (3.5-5.1) 02/14/25 14:24 Chloride 98 mmol/L (98-107) 02/14/25 14:24 Carbon Dioxide 25 mmol/L (22-29) 02/14/25 14:24 Anion Gap 18.6 (5-19) 02/14/25 14:24 BUN 23 mg/dL (8-23) 02/14/25 14:24 Creatinine 1.0 mg/dL (0.7-1.2) 02/14/25 14:24 GFR Calculation Not Reportable 02/14/25 14:24 Glucose 111 mg/dL (65-115) 02/14/25 14:24 Calculated Osmolality 290 mOsm/kg (285-295) 02/14/25 14:24 Calcium 9.2 mg/dL (8.5-10.5) 02/14/25 14:24 Total Bilirubin 0.8 mg/dL (0.15-1.2) 02/14/25 14:24 AST 31 U/L (0-40) 02/14/25 14:24 ALT 22 U/L (0-41) 02/14/25 14:24 Alkaline Phosphatase 88 U/L (40-130) 02/14/25 14:24 Troponin T Baseline 136 ng/L (0-15) H* 02/14/25 14:24 Troponin T 120 Minute 135.4 ng/L (0-15) H 02/14/25 16:22 Delta Troponin T -0.6 ABS# (0-10) L 02/14/25 16:22 Total Protein 6.4 g/dL (6.6-8.7) L 02/14/25 14:24 Albumin 4.1 g/dL (3.5-5.2) 02/14/25 14:24 Globulin 2.3 g/dL (1.3-4.6) 02/14/25 14:24 All radiology interpretation(s) finalized by discharge EKG Data EKG 1: I personally reviewed and interpreted this EKG as follows: EKG Interpretation Date: 02/14/25 Prior EKG tracings: available for review Interpretation: 02 14 2025 1404 atrial fibrillation rate of 47 QTc 441 right bundle branch block no acute ST changes. No significant change from EKG 02/05/2025. Discharge Plan Discharge Patient Disposition: Home Clinical Impression: Pleural effusion, right Condition: Stable Prescriptions: No Action aspirin 81 mg tablet,delayed release (DR/EC) 81 mg PO DAILY furosemide [Lasix] 20 mg tablet 20 mg PO BID Rx Instructions: 40MG AM 20MG PM levothyroxine 75 mcg Tablet 75 mcg PO DAILY rosuvastatin 40 mg tablet 20 mg PO DAILY potassium chloride 20 mEq packet 20 meq PO DAILY Qty: 30 0RF Discharge Orders: Discharge ED (Routine); Ordered 02/14/25 Ordered By: Amaury Hill Referrals: Serenity Gamez MD [Primary Care Provider, [facility]] Discharge Diet: Usual diet Discharge Activity: Increase activity as tolerated Patient Instructions: Opioid Safety, Pain Management, Patient Portal & Irma Instructions Activity Restrictions/Additional Instructions: Thank you for choosing [facility] for your healthcare needs today. It is very important that you follow up as instructed or that you return to the Emergency Department should you have concerns or if your condition changes or worsens in any way. Emergency department visits are focused on emergent conditions, in some cases you may require further evaluation on an outpatient basis. You were seen in the emergency room with complaining of shortness of breath with laying down and with exertion. The fluid withdrawn from your lungs seem to resolve your symptoms. Repeat x-ray was done showed that there was good improvement. Recommend that you follow-up with pulmonology and cardiology. Return if you have further problems. You were evaluated for need for oxygen but did not qualify. (Please note that included in your discharge packet is information concerning opioid safety and pain management. This information is given to all patients were discharged from the ER regardless of their discharge diagnosis or the medicines they usually take or are prescribed.) Print Language: Mexican Coding Level of Care Code ED Quality Lead for Burt Amezquita
[2025-02-14 14:30] LABS: Hematocrit 37.9 % (37-53); Hemoglobin 11.80 g/dL (11.27-16.99); Mean Corpuscular HGB Conc 31.1 g/dL (30-55); Mean Corpuscular Hemoglobin 26.9 pg (27-33); Mean Corpuscular Volume 86.3 fl (82-101); Nucleated Red Blood Cells % 0 %; Platelet Count 171 10^3/cmm (157-399); Red Blood Count 4.39 10^6/uL (3.85-5.65); White Blood Count 4.54 10^3/uL (3.29-11.43)
--- NOTE | 2025-02-14 14:34 | US_ITS ---
WS: [id number] ULTRASOUND-GUIDED THORACENTESIS, RIGHT HISTORY: R pleural effusion Procedure, risks, and complications were explained to the patient. With the patient in an upright position, the skin over the RIGHT posterior thorax was cleansed with ChloraPrep and anesthetized with 1% buffered lidocaine. A 5 Azeri Yueh needle is inserted into the pleural fluid without complication. Approximately 1700 cc of clear pleural fluid is removed without difficulty. / thoracentesis [id number] IMPRESSION: 1. RIGHT thoracentesis yielding 1700 cc of fluid. 2. Chest radiograph to follow to evaluate for pneumothorax.
[2025-02-14 14:47] LABS: Alanine Aminotransferase 22 U/L (0-41); Albumin Level 4.1 g/dL (3.5-5.2); Alkaline Phosphatase 88 U/L (40-130); Aspartate Amino Transferase 31 U/L (0-40); Blood Urea Nitrogen 23 mg/dL (8-23); Calcium 9.2 mg/dL (8.5-10.5); Carbon Dioxide 25 mmol/L (22-29); Chloride 98 mmol/L (98-107); Creatinine Clr Calc Pharmacy 59.9689; Globulin 2.3 g/dL (1.3-4.6); Glucose 111 mg/dL (65-115); Osmolality Calculated 290 mOsm/kg (285-295); Sodium 138 mmol/L (136-145); Total Protein 6.4 g/dL (6.6-8.7)
[2025-02-14 14:50] LABS: Troponin(5th) Baseline 136 ng/L (0-15)
[2025-02-14 14:54] LABS: Anion Gap 18.6 (5-19); Potassium 3.6 mmol/L (3.5-5.1)
--- NOTE | 2025-02-14 15:20 | XR_ITS ---
WS: [id number] PORTABLE CHEST HISTORY: dyspnea/cough, post RIGHT thoracentesis. COMPARISON: 02/05/2025 Small air-fluid level at the RIGHT lung base. A small hydropneumothorax cannot be excluded. This may be entrapped fluid from patient's adhesions. There is no midline shift. No large pneumothorax. Small residual LEFT pleural effusion. Mild enlargement of the heart. Prior CABG. No osseous abnormality seen. XR/XR chest 1V portable [id number] IMPRESSION: 1. Questionable small RIGHT hydropneumothorax after the thoracentesis. 2. Consider repeat chest radiograph in 1 hour. 3. Small residual bilateral pleural effusions. Notified Dr. Hill at 02/14/2025 3:36 PM.
--- NOTE | 2025-02-14 15:21 | PC.NURSE ---
Dr. Christopher Sim in room ordered STAT Chest XR for now post Thoracentesis.
--- NOTE | 2025-02-14 15:36 | PC.NURSE ---
Pt asked for urine sample, pt states just going before being brought back, urinal handed to pt and pt states he will try if he feels he can.
--- NOTE | 2025-02-14 15:38 | XRR_ITS ---
PROCEDURE INFORMATION: Exam: XR Chest Exam date and time: 02/14/2025 4:15 PM Age: 89 years old Clinical indication: Post thoracentesis, timed radiographs TECHNIQUE: Imaging protocol: Radiologic exam of the chest. Views: 1 view. COMPARISON: CR XR chest 1V portable [id number] 02/14/2025 3:24 PM FINDINGS: Lungs: Opacities in the lsptr-cttsncx-yyac-left lung bases. Pleural spaces: Small right pleural effusion. The previously seen air-fluid level in the right lung base is no longer visualized. Small left pleural effusion. The right lung apex appears slightly lucent without a definite pleural line. Heart/Mediastinum: Postsurgical changes of prior CABG. Sternotomy wires are intact. Bones/joints: No acute fracture. XR/XR chest 1V portable [id number] IMPRESSION: 1. The previously seen air-fluid level in the right lung base is no longer visualized. The right lung apex appears slightly lucent, without a definite pleural line. Findings are favored to be secondary to technique, though a tiny right apical pneumothorax is difficult to exclude. 2. Small bilateral pleural effusions. 3. Opacities in the mclti-dkeibzz-rzlm-left lung bases, favored to represent atelectasis, though superimposed infection can not be excluded.
--- NOTE | 2025-02-14 16:03 | ECG_ITS ---
[facility] Test Date: 2025-02-14 Pat Name: Miquel Riddle Department: Room: Gender: Male Telephone Quotation Clerk: : 1935 Requested By: Amaury Keller Order Number: [id number] Simon MD: Ronald Pedroza M.D. Measurements Intervals [place] Rate: 77 P: 0 AK: 0 QRS: 268 QRSD: 141 T: 63 QT: 411 QTc: 465 Interpretive Statements ATRIAL FIBRILLATION RIGHT AXIS DEVIATION [QRS AXIS > 100] RIGHT BUNDLE BRANCH BLOCK [120+ ms QRS DURATION, UPRIGHT V1, 40+ ms S IN I/aVL/V4/V5/V6] ANTERIOR MYOCARDIAL INFARCTION , OF INDETERMINATE AGE [40+ ms Q WAVE AND/OR ST/T ABNORMALITY IN V3/V4] INFERIOR MYOCARDIAL INFARCTION , PROBABLY OLD [40+ ms Q WAVE AND/OR ST/T ABNORMALITY IN II/aVF] INTERPRETATION BASED ON A DEFAULT AGE OF 40 YEARS Compared to ECG 02/05/2025 09:59:51 Myocardial infarct finding now present.Ventricular premature complex(es) no longer present.Aberrant conduction of supraventricular beat(s) no longer present Electronically Signed On 02-14-2025 19:36:59 CDT by Ronald Pedroza M.D. [email or web address]
--- OUTSIDE RECORDS SUMMARY | 2025-02-14 16:30 | XMS_ITS | Clinical Summary ---
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
--- OUTSIDE RECORDS SUMMARY | 2025-02-14 16:30 | XMS_ITS | Encounter Summary ---
Author Organization [facility] Address [address] [place] [address] Care Team Providers Care Career Development Associate Name Role Phone Mauricio Ivy MD Primary Care Provider [phone] Encounter Details Date Type Department Care Team (Latest Contact Info) Description 01/15/2000 Outpatient Historical [facility] Cardiology- [place] [address] [place] [address] Mauricio Ivy MD [address] [place] [address] Other and unspecified angina pectoris (Primary Dx); Coronary atherosclerosis of [place] coronary artery Social History Tobacco Use Types Packs/Day Years Used Date Smoking Tobacco: Never Assessed Sex and Gender Information Value Date Recorded Sex Assigned at Not on file Legal Sex Male 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
--- OUTSIDE RECORDS SUMMARY | 2025-02-14 16:30 | XMS_ITS | Encounter Summary ---
Author Organization [employer] Address [address] [facility] Attn: [place] [address] Care Team Providers Care Historian Dramatic Arts Name Role Phone Mauricio Ivy MD Primary Care Provider [phone] Encounter Details Date Type Department Care Team (Late st Contact Info) Description 02/06/2000 Outpatient Historical Mauricio Ivy MD [address] [place] [address] Social History Tobacco Use Types Packs/Day Years Used Date Smoking Tobacco: Never Assessed Sex and Gender Information Value Date Recorded Sex Assigned at Not on file 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
--- OUTSIDE RECORDS SUMMARY | 2025-02-14 16:30 | XMS_ITS | Encounter Summary ---
Author Organization [facility] Address [address] [place] [address] Care Team Providers Care Hardware Supplies Sales Representative Name Role Phone Mauricio Ivy MD Primary Care Provider [phone] Encounter Details Date Type Department Care Team (Latest Contact Info) Description 02/16/2006 Outpatient Historical [facility] Cardiology Anc[facility] [address] [place] [address] Deep Nye MD NO ADDRESS ON FILE Coronary Atherosclerosis of [place] Coronary Artery (Primary Dx); Unspecified Chest Pain Social History Tobacco Use Types Packs/Day Years Used Date Smoking Tobacco: Never Assessed Sex and Gender Information Value Date Recorded Sex Assigned at Not on file Legal Sex 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
--- OUTSIDE RECORDS SUMMARY | 2025-02-14 16:30 | XMS_ITS | Encounter Summary ---
Author Organization [facility] Address [address] [place] [address] Care Team Providers Care Hand Winder Name Role Phone Mauricio Ivy MD Primary Care Provider [phone] Encounter Details Date Type Department Care Team (Latest Contact Info) Description 01/28/2007 Outpatient Historical [facility] Cardiology [facility] [address] [place] [address] Eduar Santoro MD [address] [place] [address] Coronary Atherosclerosis of [place] Coronary Artery (Primary Dx); Unspecified Chest Pain Social History Tobacco Use Types Packs/Day Years Used Date Smoking Tobacco: Never Assessed Sex and Gender Information Value Date Recorded Sex Assigned at Not on file 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
--- OUTSIDE RECORDS SUMMARY | 2025-02-14 16:30 | XMS_ITS | Encounter Summary ---
Author Organization [facility] Address [address] [place] [address] Care Team Providers Care Powertrain Design Engineer Name Role Phone Mauricio Ivy MD Primary Care Provider [phone] Encounter Details Date Type Department Care Team (Latest Contact Info) Description 02/16/2006 Outpatient Historical [facility]iology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
--- OUTSIDE RECORDS SUMMARY | 2025-02-14 16:31 | XMS_ITS | Encounter Summary ---
Author Organization [facility] Address [address] [place] [address] Care Team Providers Care Payloader Operator Name Role Phone Mauricio Ivy MD Primary Care Provider [phone] Encounter Details Date Type Department Care Team (Latest Contact Info) Description 12/07/2006 Outpatient Historical [facility] Cardiology- [place] [address] [place] [address] Vane Sun, LIFELINE REPRESENTATIVES [address] [place] [address] Coronary Atherosclerosis of [place] Coronary Artery (Primary Dx); Unspecified Essential Hypertension; Unspecified Chest Pain; Other and Unspecified Hyperlipidemia Social History Tobacco Use Types Packs/Day Years Used Date Smoking Tobacco: Never Assessed Sex and Gender Information Value Date Recorded Sex Assigned at Not on file Legal Sex 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
--- OUTSIDE RECORDS SUMMARY | 2025-02-14 16:31 | XMS_ITS | Encounter Summary ---
Author Organization [employer] Address [address] [facility] Attn: [place] [address] Care Team Providers Care Educational Recruiter Name Role Phone Mauricio Ivy MD Primary Care Provider [phone] Encounter Details Date Type Department Care Team (Late st Contact Info) Description 12/23/2001 Outpatient Historical Mauricio Ivy MD [address] [place] [address] Social History Tobacco Use Types Packs/Day Years Used Date Smoking Tobacco: Never Assessed Sex and Gender Information Value Date Recorded Sex Assigned at Not on file 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
--- OUTSIDE RECORDS SUMMARY | 2025-02-14 16:31 | XMS_ITS | Encounter Summary ---
Author Organization [employer] [facility] Address [address] [place] [address] Care Team Providers Care Saw Grinder Name Role Phone Mauricio Ivy MD Primary Care Provider [phone] Encounter Details Date Type Department Care Team (Late st Contact Info) Description 01/15/2006 Inpatient Historical [facility] Mauricio Ivy MD [address] [facility] [address] [place] [address] Coronary Atherosclerosis of [place] Coronary Artery (Primary Dx) Social History Tobacco Use Types Packs/Day Years Used Date Smoking Tobacco: Never Assessed Sex and Gender Information Value Date Recorded Sex Assigned at Not on file 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 Gender Identity Not on file Sexual [...] TESTING Final R esult Performing Organization Address [facility] Co de Phone Number INTERFACE SYSTEM Refer to clinic/hospital department * (ABNORMAL) POC ACTIVATED CLOTTING TIME (01/15/2006 4:49 PM CDT) [facility] ACT POC 188(H) 79 - 149 sec INTERFACE SYSTEM 01/15/2006 4:49 PM CDT Mauricio Ivy MD POINT OF CARE TESTING Final R ult Performing Organization Address [facility] de Phone Number INTERFACE SYSTEM Refer to clinic/hospital department * (ABNORMAL) CBC WITHOUT DIFFERENTIAL (01/15/2006 9:32 AM CDT) [facility] WBC 6.1 4.8 - 10.8 K/ul INTERFACE [...] ORDERABLES Final R esult Performing Organization Address [facility] de Phone Number INTERFACE SYSTEM [...] Goal INR 3.0; range 2.5 - 3.5 POST-MD Goal INR 2.5; range 2.0 - 3.0 [...] ORDERABLES Final R esult Performing Organization Address [facility]/ZIP Co de Phone Number INTERFACE SYSTEM Refer [...] Diagnoses Diagnosis Coronary atherosclerosis of [place] coronary artery- Primary documented in this encounter Care Teams Saw Grinder Relationship Specialty Start Date End Date Mauricio Ivy MD [address] [facility] [address] [place] [address] PCP - General 01/15/06 documented as of this encounter
[2025-02-14 17:15] LABS: Troponin 5 2HR 135.4 ng/L (0-15); Troponin 5 2HR Delta -0.6 ABS# (0-10)
== END 2025-02-14 17:10 | disposition home or self-care (01) ==
PROVIDERS: Emergency Provider Family Medicine; PCP Family Medicine
DX: J90 Pleural effusion, not elsewhere classified (principal); Z79.82 Long term (current) use of aspirin; Z87.891 Personal history of nicotine dependence; Z95.1 Presence of aortocoronary bypass graft; E78.5 Hyperlipidemia, unspecified; I10 Essential (primary) hypertension
CPT/HCPCS: 32555; 36415; 71045; 80053; 84484; 85025; 93005; 94760; 99285

== ENCOUNTER 2025-02-16 07:35 | Outpatient (CLI) | payer OTHER, SELFPAY ==
--- NOTE | 2025-02-16 07:45 | CTR_ITS ---
PROCEDURE INFORMATION: Exam: CT Chest Without Contrast; Diagnostic Exam date and time: 02/16/2025 7:46 AM Age: 89 years old Clinical indication: Condition or disease; Other: Leukemia; Prior surgery; Surgery date: 6+ months; Surgery type: Triple bypass; Additional info: TECHNIQUE: Imaging protocol: Diagnostic computed tomography of the chest without contrast. Radiation optimization: All CT scans at this facility use at least one of these dose optimization techniques: automated exposure control; mA and/or kV adjustment per patient size (includes targeted exams where dose is matched to clinical indication); or iterative reconstruction. COMPARISON: CT chest wo con [id number] 12/07/2024 4:03 PM RADIATION DOSE METRICS: Total DLP (mGy-cm): 625.01 FINDINGS: Lungs: Compressive atelectasis of the lung bases. Similar areas of bandlike and hazy opacities in the neskx-rpqcmxh-hrkf-left lung related to atelectasis or scarring. There are subtle reticulonodular opacities scattered throughout the right lung which may be related to infectious/inflammatory etiology. Overall similar scattered sub 5 mm pulmonary nodules. Pleural spaces: Moderate bilateral pleural effusions. Heart: Cardiomegaly. Coronary arteries: Coronary artery calcifications and stents. Lymph nodes: There are similar scattered small mediastinal and hilar lymph nodes some of which are calcified. Vasculature: Atherosclerosis of the thoracic aorta. Similar dilated main pulmonary artery trunk which can be seen in the setting of pulmonary hypertension. Gallbladder and biliary ducts: Cholecystectomy. 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 Kidneys: Incompletely visualized right-sided renal cysts. Intraperitoneal space: Small volume ascites in the upper abdomen. Bones/joints: Unremarkable. No acute fracture. Soft tissues: Unremarkable. CT/CT chest con [id number] Follow up IMPRESSION: 1. Redemonstration of moderate bilateral pleural effusions with adjacent compressive atelectasis. 2. Reticulonodular opacities are again noted in the right lung of a superimposed infectious/inflammatory etiology. 3. Atelectasis and scarring in the lung . 4. Similar scattered mediastinal and hilar lymph nodes. 5. Small volume ascites. 6. Additional incidental and chronic findings as above. COMMENTS: Consistent with the [employer]'s Incidental Findings Committee white paper (J Am Ildefonso Radiol 2018): Any incidental renal lesion less than 1 cm or classified as too small to characterize, or any incidental cystic renal lesion characterized as simple-appearing, is likely benign. No follow-up imaging is recommended for these lesions per consensus recommendations based on imaging criteria.
== END 2025-02-16 07:36 | disposition home or self-care (01) ==
LOC: RAD 07:35
PROVIDERS: PCP Family Medicine; Visit Provider Internal Medicine
DX: J86.9 Pyothorax without fistula (principal); J90 Pleural effusion, not elsewhere classified; R91.8 Other nonspecific abnormal finding of lung field; J98.11 Atelectasis; J98.4 Other disorders of lung; R59.0 Localized enlarged lymph nodes; R18.8 Other ascites; I51.7 Cardiomegaly; I25.10 Atherosclerotic heart disease of native coronary artery without angina pectoris; Z96.89 Presence of other specified functional implants; I70.0 Atherosclerosis of aorta; R93.89 Abnormal findings on diagnostic imaging of other specified body structures; Z90.49 Acquired absence of other specified parts of digestive tract; D73.89 Other diseases of spleen; N28.1 Cyst of kidney, acquired
CPT/HCPCS: 71250

== ENCOUNTER → 2025-02-21 14:36 | Outpatient (BNVA) | payer OTHER, SELFPAY | PROVIDERS: PCP Family Medicine; Visit Provider Internal Medicine | DX: J86.9 Pyothorax without fistula (principal); J90 Pleural effusion, not elsewhere classified; Z87.891 Personal history of nicotine dependence | CPT/HCPCS: 99213; Q3014 ==